=== PATIENT | male | born 1955 | race Caucasian/White ===

== ENCOUNTER → 2023-05-12 07:26 | Outpatient (REF) | payer MEDICARE, OTHER, SELFPAY | LOC: EMG 07:26 | PROVIDERS: ATTENDING PHYSICIAN Orthopaedic Surgery; FAMILY PHYSICIAN Family Medicine | DX: R20.0 Anesthesia of skin (principal); M50.30 Other cervical disc degeneration, unspecified cervical region | CPT/HCPCS: 95886; 95911 ==

== ENCOUNTER → 2023-06-16 11:41 | Outpatient (REF) | payer MEDICARE, OTHER, SELFPAY ==
[2023-06-16 12:32] LABS: INR 1.12; PT 14.2 Sec (11.4-14.6)
== END ==
LOC: REG 11:41
PROVIDERS: ATTENDING PHYSICIAN Internal Medicine Cardiovascular Disease; FAMILY PHYSICIAN Family Medicine
DX: I48.91 Unspecified atrial fibrillation (principal)
CPT/HCPCS: 36415; 85610

== ENCOUNTER → 2023-06-20 09:20 | Outpatient (REF) | payer MEDICARE, OTHER, SELFPAY ==
[2023-06-20 10:24] LABS: INR 1.43; PT 17.3 Sec (11.4-14.6)
== END ==
LOC: REG 09:20
PROVIDERS: ATTENDING PHYSICIAN Internal Medicine Cardiovascular Disease; FAMILY PHYSICIAN Family Medicine
DX: I48.91 Unspecified atrial fibrillation (principal)
CPT/HCPCS: 36415; 85610

== ENCOUNTER → 2023-06-26 09:46 | Outpatient (REF) | payer MEDICARE, OTHER, SELFPAY ==
[2023-06-26 11:21] LABS: INR 2.36; PT 26.1 Sec (11.4-14.6)
== END ==
LOC: REG 09:46
PROVIDERS: ATTENDING PHYSICIAN Internal Medicine Cardiovascular Disease
DX: I48.91 Unspecified atrial fibrillation (principal)
CPT/HCPCS: 36415; 85610

== ENCOUNTER → 2023-07-03 08:45 | Outpatient (REF) | payer MEDICARE, OTHER, SELFPAY ==
[2023-07-03 09:46] LABS: INR 2.01
== END ==
LOC: REG 08:45
PROVIDERS: ATTENDING PHYSICIAN Internal Medicine Cardiovascular Disease; FAMILY PHYSICIAN Family Medicine
DX: I48.0 Paroxysmal atrial fibrillation (principal)
CPT/HCPCS: 36415; 85610

== ENCOUNTER → 2023-07-10 08:18 | Outpatient (REF) | payer MEDICARE, OTHER, SELFPAY ==
[2023-07-10 10:16] LABS: INR 2.75; PT 29.5 Sec (11.4-14.6)
== END ==
LOC: REG 08:18
PROVIDERS: ATTENDING PHYSICIAN Internal Medicine Cardiovascular Disease; FAMILY PHYSICIAN Family Medicine
DX: I48.0 Paroxysmal atrial fibrillation (principal)
CPT/HCPCS: 36415; 85610

== ENCOUNTER → 2023-07-17 10:12 | Outpatient (REF) | payer MEDICARE, OTHER, SELFPAY ==
[2023-07-17 10:45] LABS: INR 2.94; PT 31.1 Sec (11.4-14.6)
== END ==
LOC: REG 10:12
PROVIDERS: ATTENDING PHYSICIAN Internal Medicine Cardiovascular Disease; FAMILY PHYSICIAN Family Medicine
DX: I48.91 Unspecified atrial fibrillation (principal)
CPT/HCPCS: 36415; 85610

== ENCOUNTER 2023-07-23 00:17 | Emergency (ER) | payer MEDICARE, OTHER, SELFPAY ==
[2023-07-23 00:20] VITALS: BP 207/104
--- NOTE | 2023-07-23 00:37 | ED.SKININJ ---
HPI-Injury
<ANTHONY Staley - Last Filed: 07/23/23 01:49>
General
Chief Complaint: Skin Problem
Source: patient
Exam Limitations: none
Time Seen by Provider: 07/23/23 00:28
Nursing documentation reviewed up to this point in time: agreed with
Travel History
Have you had any contact with someone who has COVID-19?: No
Do you have any symptoms of coronavirus? Fever > 100 degrees, chills, cough, shortness of breath, sore throat, loss of taste or smell, muscle aches, or headache?: No
History of Present Illness-Injury
Initial Injury comments:
This is a 67 year old male with recent MOHS surgery (07/10/23) who presents to the ED for excessive bleeding from surgical site (R upper cheek). He is on Coumadin with a recent INR (07/17/23) of 2.94. He was seen at by his healthcare marketer twice for
this same incident where they packed it. He denies fatigue, weakness, headache, cp, or sob.
Past History
<ANTHONY Staley - Last Filed: 07/23/23 01:49>
Past History
ED Past Medical History: Arrthythmia, HTN and Other (adrenal tumor, Paige's disease, NATHEN, morbid obestity)
ED Past Surgical History: Other (adrenal tumor resection)
Social History
Tobacco: Non-smoker
Alcohol: None
Drug: None
Personal:
Living: with family
Employment: Employed
Family History
Family History: Other (Noncontributory)
Review of Systems
<ANTHONY Staley - Last Filed: 07/23/23 01:49>
Review of Systems
Allergies reviewed?: Yes
All Other Systems: Not applicable
Constitutional: Reports no symptoms
EENT: Reports no symptoms
Respiratory: Reports no symptoms
Cardiac: Reports no symptoms
ABD/GI: Reports no symptoms
: Reports no symptoms
Musculoskeletal: Reports no symptoms
Skin: Reports no symptoms
Neurological: Reports no symptoms
Endocrine: Reports no symptoms
Hematologic/Lymphatic: Reports bleeding (From MOHS surgical site)
Psychiatric: Reports no symptoms
Phy Exam
<ANTHONY Staley - Last Filed: 07/23/23 01:49>
General Physical Exam
General Presentation: well appearing and no apparent distress
General Skin: warm and dry
General Habitus: normal
General Mental: alert
General Hydration: appears well hydrated
ENT Exam
ENT Exam: EOMI, pharynx normal, neck supple and normocephalic
Eye Exam
Eye Exam: PERRL, cornea clear and conjunctiva normal
Cardiovascular Exam
Cardiovascular Exam: regular rate/rhythm, no edema, no murmur and normal peripheral pulses
Pulmonary Exam
Pulmonary Exam: lungs clear, no respiratory distress, no rales, no crackles, no rhonchi, no stridor, no wheezing and no cough
Gastrointestinal Exam
Gastrointestinal Exam: normal bowel sounds, non tender, soft, no organomegaly, no pulsatile mass and non distended
Neurological Exam
Neurological Exam: alert, oriented x3, no motor deficits and speech normal
Musculoskeletal Exam
Musculoskeletal Exam: full ROM and no edema
Skin Exam
Skin Exam: normal color, warm/dry, no rash, no petechia and other (Bleeding from MOHS surgical site on R upper cheek )
Psychiatric Exam
Psychiatric Exam: normal mood/affect
Course
<ANTHONY Staley - Last Filed: 07/23/23 01:49>
Orders/Labs/Results
Orders:
Orders
07/23/23 01:14
PT/INR [Prothrombin Time] Urgent
Abnormal Lab Results
07/23/23
01:14
PT 28.6 H Sec
(11.4-14.6)
Vital Signs
Initial and Last Documented VS:
Initial Vital Signs
Temp Pulse Resp BP Pulse Ox
97.9 F 74 22 207/104 96
07/23/23 00:20 07/23/23 00:20 07/23/23 00:20 07/23/23 00:20 07/23/23 00:20
Last Documented Vital Signs
Temp Pulse Resp BP Pulse Ox
97.9 F 68 17 152/79 97
07/23/23 00:20 07/23/23 00:58 07/23/23 00:58 07/23/23 00:58 07/23/23 00:58
<Roberto Vega DO - Last Filed: 07/23/23 02:15>
Orders/Labs/Results
Orders:
Orders
07/23/23 01:14
PT/INR [Prothrombin Time] Urgent
Abnormal Lab Results
07/23/23
01:14
PT 28.6 H Sec
(11.4-14.6)
Vital Signs
Initial and Last Documented VS:
Initial Vital Signs
Temp Pulse Resp BP Pulse Ox
97.9 F 74 22 207/104 96
07/23/23 00:20 07/23/23 00:20 07/23/23 00:20 07/23/23 00:20 07/23/23 00:20
Last Documented Vital Signs
Temp Pulse Resp BP Pulse Ox
97.9 F 68 17 152/79 97
07/23/23 00:20 07/23/23 00:58 07/23/23 00:58 07/23/23 00:58 07/23/23 00:58
<ANTHONY Staley - Last Filed: 07/23/23 01:49>
MDM/Problems Addressed
Differential Diagnosis Includes:
MOHS complication vs wound infection
Wound infection considered, however surgical site without erythema or discharge. He denies any fevers. MOHS complication due to recent surgery and active bleeding from wound site.
<ANTHONY Staley - Last Filed: 07/23/23 01:49>
*Critical Care Note
Total Time (30-74mins, 75-104mins- exclusive of procedures): Not Applicable
ED Attending Note
<ANTHONY Staley - Last Filed: 07/23/23 01:49>
-
Portions of this chart may have been created with voice recognition software.� Occasional wrong word or��sound alike� substitutions may have occurred due to the inherent limitations of voice recognition software.
<Roberto Vega DO - Last Filed: 07/23/23 02:15>
ED Attending Note
Patient seen and examined by attending physician: Yes
I performed the substantive portion of visit, reviewed & personally made and approve the management plan that is documented in note by myself or DAE.: Yes
ED Attending Note:
Pleasant 67-year-old male that presents with bleeding on his right cheek. He had Mohs surgery by Dr. Milian. Patient is on Coumadin and has had bleeding from this wound. He was back to Dr. Milian's office twice for packing. Tonight the
bleeding restarted. Patient was seen in conjunction with the PA student. I have reviewed and agree with the history and treatment plan presented. On my independent physical exam, patient is awake, alert, and oriented x3. There is approximately
3 x 1 cm surgical OpSite on the right cheek. It is packed. There is clot all around the packing. There is no active bleeding. No respiratory distress.
Upon my exam, bleeding had stopped. We put Surgifoam over the site and put a bandage on top of that. Patient tolerated procedure well with no immediate adverse effects.
Discharge Plan
Departure
Patient Disposition: Home (Routine Discharge)
Date of Disposition: 07/23/23
Time of Disposition: 02:13
Patient with high blood pressure during this ER visit?: Yes
Condition: Good
Discharge Problem:
Post-op bleeding
Instructions: Wound Care (DC), Bleeding After Surgery
Prescriptions:
No Action
losartan 100 mg Tablet
100 mg PO DAILY Qty: 0 0RF
Eliquis DVT-PE Treat 30D Start 5 mg (74 tabs) tablets,dose pack
See Rx Instructions .ROUTE .COMPLEX Qty: 74 0RF
Rx Instructions:
orally per package directions
diltiazem HCl [Cardizem LA] 180 mg tablet extended release 24 hr
180 mg PO DAILY Qty: 30 0RF
tamsulosin [Flomax] 0.4 mg capsule
0.4 mg PO DAILY Qty: 30 0RF
Referrals:
Román Milian MD [Consulting Staff] - Next open appointment
Activity Restrictions/Additional Instructions:
Please follow-up with Dr. Milian, as discussed
It was a pleasure meeting you and taking part in your care. We hope for your continued healing and wellness.
Please read discharge instructions in their entirety. However, they are for general education and may not describe your exact diagnosis at discharge. Information on your ER visit and medical conditions were discussed with you along with appropriate
follow up information...
If indicated, please take your medications as instructed and indicated on discharge paperwork.
Please schedule a follow up appointment as directed. Call to schedule an appointment
Please return to the emergency department with ANY change in, persisting, or worsening of symptoms. If any of your symptoms do not improve, or persist, or become more severe within 6-12 hours, please return to the emergency department for further
care.
Please return to the emergency department if you develop a headache, neck pain/stiffness, fever greater than 100.4F, chest pain, shortness of breath, persistent nausea, vomiting, slurred speech, difficulty walking, numbness/tingling, weakness, signs
of infection or any other symptoms that are worrisome to you.
If you have any questions or concerns please do not hesitate to call the Hospital at or E-mail me directly at [email or web address]
Interventions
Interventions:
*Risk Screen - Suicide Last Done: 07/23/23 00:20
*General Assessment Last Done: 07/23/23 00:54
*Neglect/Abuse Screening Last Done: 07/23/23 00:20
ED- Fall Risk Assessment Last Done: 07/23/23 00:54
*ED COVID-19 Vaccine History Last Done: 07/23/23 00:54
ED-Skin Assessment Last Done: 07/23/23 00:54
Discharge Date and Time
Print Language: BELGIAN
[2023-07-23 00:58] VITALS: BP 152/79
[2023-07-23 00:59] VITALS: BMI 46.2
[2023-07-23 01:36] LABS: PT 28.6 Sec (11.4-14.6)
[2023-07-23 02:25] VITALS: BP 143/79
== END 2023-07-23 02:25 | disposition home or self-care (01) ==
LOC: EMR 00:17
PROVIDERS: EMERGENCY PHYSICIAN Student in an Organized Health Care Education/Training Program; FAMILY PHYSICIAN Family Medicine
DX: L76.22 Postprocedural hemorrhage of skin and subcutaneous tissue following other procedure (principal); I10 Essential (primary) hypertension; Z79.01 Long term (current) use of anticoagulants
CPT/HCPCS: 99283; 85610

== ENCOUNTER → 2023-08-14 08:41 | Outpatient (REF) | payer MEDICARE, OTHER, SELFPAY ==
[2023-08-14 09:34] LABS: INR 2.49; PT 27.3 Sec (11.4-14.6)
== END ==
LOC: REG 08:41
PROVIDERS: ATTENDING PHYSICIAN Internal Medicine Cardiovascular Disease
DX: I48.91 Unspecified atrial fibrillation (principal)
CPT/HCPCS: 36415; 85610

== ENCOUNTER → 2023-08-28 11:44 | Outpatient (REF) | payer MEDICARE, OTHER, SELFPAY ==
[2023-08-28 17:58] LABS: Urine Albumin Trace (Neg - Trace); Urine Bilirubin Negative (Negative); Urine Character Clear (Clear); Urine Color Yellow; Urine Glucose Negative (Negative); Urine Ketone 1+ (Negative); Urine Leukocyte 2+ (Negative); Urine Nitrite Negative (Negative); Urine Occult Blood Negative (Negative); Urine Specific Gravity 1.025 (<1.030); Urine Urobilinogen Negative (Neg - 1+)
[2023-08-28 18:25] LABS: Urine Red Blood Cell 0-2 /HPF (0-2)
== END ==
LOC: CLAB 11:44
PROVIDERS: ATTENDING PHYSICIAN Specialist
DX: N39.0 Urinary tract infection, site not specified (principal)
CPT/HCPCS: 81003; 81015; 87086

== ENCOUNTER → 2023-09-05 07:42 | Outpatient (REF) | payer MEDICARE, OTHER, SELFPAY ==
[2023-09-05 08:21] LABS: PT 28.6 Sec (11.4-14.6)
== END ==
LOC: REG 07:42
PROVIDERS: ATTENDING PHYSICIAN Internal Medicine Cardiovascular Disease; FAMILY PHYSICIAN Family Medicine
DX: I48.91 Unspecified atrial fibrillation (principal)
CPT/HCPCS: 36415; 85610

== ENCOUNTER → 2023-10-03 07:25 | Outpatient (REF) | payer MEDICARE, OTHER, SELFPAY ==
[2023-10-03 08:56] LABS: INR 2.79; PT 29.4 Sec (11.4-14.6)
== END ==
LOC: REG 07:25
PROVIDERS: ATTENDING PHYSICIAN Internal Medicine
DX: I48.91 Unspecified atrial fibrillation (principal)
CPT/HCPCS: 36415; 85610

== ENCOUNTER → 2023-10-31 07:22 | Outpatient (REF) | payer MEDICARE, OTHER, SELFPAY ==
[2023-10-31 08:07] LABS: INR 2.47; PT 26.7 Sec (11.4-14.6)
== END ==
LOC: REG 07:22
PROVIDERS: ATTENDING PHYSICIAN Internal Medicine Cardiovascular Disease; FAMILY PHYSICIAN Family Medicine
DX: I48.91 Unspecified atrial fibrillation (principal)
CPT/HCPCS: 36415; 85610

== ENCOUNTER → 2023-11-28 06:42 | Outpatient (REF) | payer MEDICARE, OTHER, SELFPAY ==
[2023-11-28 07:42] LABS: INR 2.47; PT 26.6 Sec (11.4-14.6)
== END ==
LOC: REG 06:42
PROVIDERS: ATTENDING PHYSICIAN Internal Medicine Cardiovascular Disease; FAMILY PHYSICIAN Family Medicine
DX: I48.91 Unspecified atrial fibrillation (principal)
CPT/HCPCS: 36415; 85610

== ENCOUNTER → 2023-12-26 06:58 | Outpatient (REF) | payer MEDICARE, OTHER, SELFPAY ==
[2023-12-26 08:11] LABS: INR 2.51; PT 26.9 Sec (11.4-14.6)
== END ==
LOC: REG 06:58
PROVIDERS: ATTENDING PHYSICIAN Internal Medicine Cardiovascular Disease; FAMILY PHYSICIAN Family Medicine
DX: I48.91 Unspecified atrial fibrillation (principal)
CPT/HCPCS: 36415; 85610

== ENCOUNTER → 2024-01-23 06:31 | Outpatient (REF) | payer MEDICARE, OTHER, SELFPAY ==
[2024-01-23 07:48] LABS: INR 2.56; PT 27.4 Sec (11.4-14.6)
== END ==
LOC: REG 06:31
PROVIDERS: ATTENDING PHYSICIAN Student in an Organized Health Care Education/Training Program; FAMILY PHYSICIAN Family Medicine
DX: I48.91 Unspecified atrial fibrillation (principal)
CPT/HCPCS: 36415; 85610

== ENCOUNTER → 2024-02-20 06:45 | Outpatient (REF) | payer MEDICARE, OTHER, SELFPAY ==
[2024-02-20 08:00] LABS: INR 1.68
== END ==
LOC: REG 06:45
PROVIDERS: ATTENDING PHYSICIAN Student in an Organized Health Care Education/Training Program; FAMILY PHYSICIAN Family Medicine
DX: I48.91 Unspecified atrial fibrillation (principal)
CPT/HCPCS: 36415; 85610

== ENCOUNTER → 2024-02-27 07:13 | Outpatient (REF) | payer MEDICARE, OTHER, SELFPAY ==
[2024-02-27 09:19] LABS: INR 1.69
== END ==
LOC: REG 07:13
PROVIDERS: ATTENDING PHYSICIAN Student in an Organized Health Care Education/Training Program; REFERRING PHYSICIAN Family Medicine
DX: I48.91 Unspecified atrial fibrillation (principal)
CPT/HCPCS: 36415; 85610

== ENCOUNTER → 2024-03-05 06:52 | Outpatient (REF) | payer MEDICARE, OTHER, SELFPAY ==
[2024-03-05 08:45] LABS: INR 2.11; PT 23.8 Sec (11.4-14.6)
== END ==
LOC: REG 06:52
PROVIDERS: ATTENDING PHYSICIAN Student in an Organized Health Care Education/Training Program; FAMILY PHYSICIAN Family Medicine
DX: I48.91 Unspecified atrial fibrillation (principal)
CPT/HCPCS: 36415; 85610

== ENCOUNTER → 2024-03-12 06:40 | Outpatient (REF) | payer MEDICARE, OTHER, SELFPAY ==
[2024-03-12 08:12] LABS: PT 23.6 Sec (11.4-14.6)
== END ==
LOC: REG 06:40
PROVIDERS: ATTENDING PHYSICIAN Student in an Organized Health Care Education/Training Program; FAMILY PHYSICIAN Family Medicine
DX: I48.91 Unspecified atrial fibrillation (principal)
CPT/HCPCS: 36415; 85610

== ENCOUNTER → 2024-03-19 06:51 | Outpatient (REF) | payer MEDICARE, OTHER, SELFPAY ==
[2024-03-19 07:38] LABS: INR 2.76; PT 29.5 Sec (11.4-14.6)
== END ==
LOC: REG 06:51
PROVIDERS: ATTENDING PHYSICIAN Student in an Organized Health Care Education/Training Program; FAMILY PHYSICIAN Family Medicine
DX: I48.91 Unspecified atrial fibrillation (principal)
CPT/HCPCS: 36415; 85610

== ENCOUNTER → 2024-03-26 08:41 | Outpatient (REF) | payer MEDICARE, OTHER, SELFPAY ==
[2024-03-26 09:26] LABS: INR 2.71; PT 29.2 Sec (11.4-14.6)
== END ==
LOC: REG 08:41
PROVIDERS: ATTENDING PHYSICIAN Student in an Organized Health Care Education/Training Program; FAMILY PHYSICIAN Family Medicine
DX: I48.91 Unspecified atrial fibrillation (principal)
CPT/HCPCS: 36415; 85610

== ENCOUNTER → 2024-04-12 06:51 | Outpatient (REF) | payer MEDICARE, OTHER, SELFPAY ==
[2024-04-12 07:35] LABS: INR 2.66; PT 28.4 Sec (11.4-14.6)
== END ==
LOC: REG 06:51
PROVIDERS: ATTENDING PHYSICIAN Student in an Organized Health Care Education/Training Program; FAMILY PHYSICIAN Family Medicine
DX: I48.0 Paroxysmal atrial fibrillation (principal)
CPT/HCPCS: 36415; 85610

== ENCOUNTER → 2024-04-19 09:34 | Outpatient (REF) | payer MEDICARE, OTHER, SELFPAY ==
[2024-04-19 10:11] LABS: INR 3.73; PT 36.6 Sec (11.4-14.6)
== END ==
LOC: REG 09:34
PROVIDERS: ATTENDING PHYSICIAN Student in an Organized Health Care Education/Training Program
DX: I48.0 Paroxysmal atrial fibrillation (principal)
CPT/HCPCS: 36415; 85610

== ENCOUNTER → 2024-04-29 07:00 | Outpatient (REF) | payer MEDICARE, OTHER, SELFPAY ==
[2024-04-29 07:55] LABS: INR 3.67; PT 36.7 Sec (11.4-14.6)
== END ==
LOC: REG 07:00
PROVIDERS: ATTENDING PHYSICIAN Student in an Organized Health Care Education/Training Program; FAMILY PHYSICIAN Family Medicine
DX: I48.0 Paroxysmal atrial fibrillation (principal)
CPT/HCPCS: 36415; 85610

== ENCOUNTER → 2024-05-07 06:47 | Outpatient (REF) | payer MEDICARE, OTHER, SELFPAY ==
[2024-05-07 07:51] LABS: INR 2.82; PT 29.6 Sec (11.4-14.6)
== END ==
LOC: REG 06:47
PROVIDERS: ATTENDING PHYSICIAN Student in an Organized Health Care Education/Training Program; FAMILY PHYSICIAN Family Medicine
DX: I48.0 Paroxysmal atrial fibrillation (principal)
CPT/HCPCS: 36415; 85610

== ENCOUNTER → 2024-05-14 07:19 | Outpatient (REF) | payer MEDICARE, OTHER, SELFPAY ==
[2024-05-14 08:22] LABS: INR 2.49
== END ==
LOC: REG 07:19
PROVIDERS: ATTENDING PHYSICIAN Student in an Organized Health Care Education/Training Program; FAMILY PHYSICIAN Family Medicine
DX: I48.0 Paroxysmal atrial fibrillation (principal)
CPT/HCPCS: 36415; 85610

== ENCOUNTER 2024-05-18 09:13 | Inpatient (IN) | payer MEDICARE, OTHER, SELFPAY ==
[2024-05-17 15:32] VITALS: BP 130/80
[2024-05-17 16:11] LABS: % Basophils 0.8 % (0-2); % Eosinophils 1.8 % (0-6); % Lymphocytes 17.6 % (20.5-51.1); % Monocytes 8.7 % (1.7-9.3); % Neutrophils 70.1 % (42.2-75.2); Absolute Basophils 0.1 10^3/uL (0-0.2); Absolute Eosinophils 0.2 10^3/uL (0-0.7); Absolute Immature Granulocytes 0.1 10^3/uL (0-0.05); Absolute Lymphocytes 1.5 10^3/uL (1.2-3.4); Absolute Monocytes 0.8 10^3/uL (0.1-0.6); Absolute Neutrophils 6.1 10^3/uL (1.4-6.5); Hematocrit 42.7 % (39.0-52.0); Hemoglobin 13.9 g/dL (13.0-18.0); Mean Corp Hgb Conc. 32.6 g/dL (33.0-37.0); Mean Corpuscular Hgb 29.9 pg (27.0-31.0); Mean Corpuscular Volume 91.8 fL (80.0-94.0); Mean Platelet Volume 9.5 fL (7.4-10.4); Nucleated Red Blood Cells % 0 % (-); Platelet Count 158 10^3/uL (130-400); Red Blood Cell Count 4.65 10^6/uL (4.70-6.10); Red Cell Dist. Width 15.2 % (11.5-14.5); White Blood Cell Count 8.7 10^3/uL (4.8-10.8)
[2024-05-17 16:29] LABS: ALT (SGPT) 20 U/L (0-50); AST (SGOT) 20 U/L (17-59); Albumin 4.9 g/dl (3.5-5.0); Alkaline Phosphatase 58 U/L (38-126); Blood Urea Nitrogen 15 mg/dl (9-20); Calcium 9.8 mg/dl (8.4-10.2); Carbon Dioxide 27 mmol/L (22-30); Chloride 98 mmol/L (98-107); Glucose 98 mg/dl (70-99); Potassium 4.5 mmol/L (3.5-5.1); Sodium 138 mmol/L (135-145); Total Bilirubin 1.3 mg/dl (0.2-1.3); Total Protein 7.6 g/dl (6.3-8.2); eGFR > 60.00
--- NOTE | 2024-05-17 17:28 | ED.GENMED ---
History of Present Illness
<Sallie Bradley NP - Last Filed: 05/20/24 22:37>
General
Chief Complaint: Skin Problem
Source: patient
Exam Limitations: none
Time Seen by Provider: 05/17/24 16:50
Nursing documentation reviewed up to this point in time: agreed with
History of Present Illness
History of Present Illness:
Patient to ED with complaint of pain redness and swelling to right elbow. States he had PT/INR drawn on Friday AM. Friday PM his symptoms began. He reports intermittent fevers as high as 102 since friday. He feels that the pain may be improving
but swelling is worsening and he has limited ROM to joint due to pain and swelling. Brought to ED by spouse for eval.
Past History
<Sallie Bradley NP - Last Filed: 05/20/24 22:37>
Past History
ED Past Medical History: Arrthythmia (RA), HTN and Other (adrenal tumor, Harpswell's disease, NATHEN, morbid obestity)
ED Past Surgical History: Other (adrenal tumor resection)
Social History
Tobacco: Non-smoker
Alcohol: None
Drug: None
Personal:
Living: with family
Employment: Employed
Family History
Family History: Other (Noncontributory)
Review of Systems
<Sallie Bradley NP - Last Filed: 05/20/24 22:37>
Review of Systems
Allergies reviewed?: Yes
All Other Systems: ROS reviewed and negative except as documented in HPI and ROS
Constitutional: Reports no symptoms
EENT: Reports no symptoms
Respiratory: Reports no symptoms
Cardiac: Reports no symptoms
ABD/GI: Reports no symptoms
Musculoskeletal: Reports joint pain (Pain redness and swelling to right elbow)
Skin: Reports other (erythema and swelling to right elbow)
Neurological: Reports no symptoms
Psychiatric: Reports no symptoms
Phy Exam
<Sallie Bradley NP - Last Filed: 05/20/24 22:37>
General Physical Exam
General Presentation: moderate distress
General age: appears stated age
General Skin: warm and dry
General Habitus: normal
General Mental: alert
Musculoskeletal Exam
Musculoskeletal Exam: neuro vasc intact
Skin Exam
Skin Exam: other (Pain redness and swelling to rght elbow. Limited ROM due to pain)
Psychiatric Exam
Psychiatric Exam: normal mood/affect
Course
<Sallie Bradley SHAMPOO TECHNICIAN - Last Filed: 05/20/24 22:37>
Orders/Labs/Results
Orders:
Orders
05/17/24 15:38
Arms, right US [US Periph Venous UPPER Ext RT] Urgent
Comment:
Reason For Exam: pain, swelling post phlebotomy
05/17/24 15:45
C-Reactive Protein Urgent
Comment: ADDON
Complete Blood Count/With Diff Urgent
Comprehensive Metabolic Panel Urgent
Erythrocyte Sed Rate Urgent
Comment: ADDON
05/17/24 18:36
Add On- LAB Urgent
Tests Added?: esr,crp
05/17/24 18:39
CT Upper Ext W/o Iv Cont Rt Urgent
Comment:
Reason For Exam: pain redness swellng fever
05/17/24 18:55
COVID-19 Antigen Urgent
Source: Nasal Swab
Influenza A+B Rapid Molecular Urgent
LORI Source: Nasal Swab
Specimen Description:
05/17/24 20:44
INF RAPID [Influenza A+B Rapid Molecular] Urgent
LORI Source: Nasal Swab
Specimen Description:
05/17/24 21:27
ORTHOPEDIC CONSULT Urgent
Consulting Provider: Anthony Rizzo
Was physician already notified: Yes
05/17/24 21:28
CeFAZolin 1 GRAM [Ancef] 1 gram in 5 ml IV NOW
05/17/24 22:00
Flush (0.9% Sodium Chloride) [Flush (Nss)] See Dose Instructions IV PER PROTOCOL
05/17/24 22:08
Admit/Transfer Patient As Directed
Co-Sign Provider:
Level of Care: Observation services
Assign to:: Medical/Surgical
Physician / Group: hospitalist
Diagnosis: cellulitis
05/17/24 22:09
PRN Pain Medication Management As Directed
May give lesser potent ordered pain med per pt: Yes
preference::
Protocol:: Medication orders for pain may be administered in a
manner that supports deferring to patient preference
when the pt is:
- Requesting an ordered lesser potent pain medication.
Least to most potent pain medications are defined
as: acetaminophen < NSAID < tramadol < opioids
(morphine, oxycodone, hydromorphone).
- Requesting a lesser dose of the same medication IF
ORDERED.
- Requesting a less intrusive route of administration
if both routes are prescribed by the provider (PO <
IV).
05/17/24 22:10
Code Status As Directed
Resuscitation Status: Full Code
05/17/24 22:14
Oxycodone [Roxicodone] 5 mg PO NOW STA
05/17/24 23:55
Warfarin [Coumadin] 10 mg PO NOW STA
05/18/24 00:03
Acetaminophen [Tylenol] 650 mg PO Q4HPRN PRN
Bisacodyl [Dulcolax] 10 mg RECTAL [id number] PRN
Docusate W/Senna [Senokot-S] 1 tablet PO BIDPRN PRN
HYDROmorphone [Dilaudid] 0.5 mg IV Q4HPRN PRN
Ketorolac [Toradol] 10 mg IV Q6HPRN PRN
Polyethylene Glycol Powder [Miralax] 17 grams PO DAILYPRN PRN
05/18/24 00:03
VTE Contraindication Routine
VTE Mechanical Device Contraindication: Medical Contraindication
Pharmocologic Contraindication: Medical Contraindication
Activity As Directed
Activity Level: With Assistance
Elevate Extremity As Directed
Extremity:: right arm
Elevate with:: pillow
Vital Signs As Directed
Frequency: Per unit guidelines
Cpap [RESP] Routine
Patient to use own unit?: Yes
Set Pressure (cm H2O): 8
05/18/24 00:37
Case Management Consult ONCE
Case Management Consult: Advanced Directive
05/18/24 01:08
Hydroxychloroquine [Plaquenil] 200 mg PO NOW STA
05/18/24 05:00
CeFAZolin 1 GRAM [Ancef] 1 gram in 5 ml IV Q8H
05/18/24 05:52
Basic Metabolic Panel IN AM
Complete Blood Count/No Diff IN AM
Prothrombin Time IN AM
05/18/24 Breakfast
Regular
At Your Request: Full Participation
CeFAZolin 2 GRAM [Ancef] 2 grams in 10 ml IV Q8H
05/18/24 08:00
Diltiazem Extended Release [Cardizem Cd] 180 mg PO DAILY
FOLic ACID [Folvite] 1 mg PO DAILY
Hydroxychloroquine [Plaquenil] 200 mg PO BID
Losartan [Cozaar] 100 mg PO DAILY
05/18/24 Dinner
Regular
At Your Request: Full Participation
05/18/24 22:00
Warfarin [Coumadin] 10 mg PO HS
Abnormal Lab Results
05/17/24 05/18/24
15:45 05:52
RBC 4.65 L 10^6/uL 4.24 L 10^6/uL
(4.70-6.10) (4.70-6.10)
Hgb 12.8 L g/dL
(13.0-18.0)
Hct 38.6 L %
(39.0-52.0)
MCHC 32.6 L g/dL
(33.0-37.0)
RDW 15.2 H % 15.1 H %
(11.5-14.5) (11.5-14.5)
Abs Immat Gran (auto) 0.1 H 10^3/uL
(0-0.05)
Absolute Monos (auto) 0.8 H 10^3/uL
(0.1-0.6)
Immature Gran % 1.0 H %
(0-0.5)
Lymphocytes % 17.6 L %
(20.5-51.1)
PT 25.1 H Sec
(11.4-14.6)
BUN 21 H mg/dl
(9-20)
Glucose 100 H mg/dl
(70-99)
C-Reactive Protein 130.70 H mg/L
(0.0-10.00)
05/18/24 05:52
05/18/24 05:52
Vital Signs
Initial and Last Documented VS:
Initial Vital Signs
Temp Pulse Resp BP Pulse Ox
98.4 F 75 18 130/80 99
05/17/24 15:32 05/17/24 15:32 05/17/24 15:32 05/17/24 15:32 05/17/24 15:32
Last Documented Vital Signs
Temp Pulse Resp BP Pulse Ox
98.2 F 73 17 91/64 96
05/19/24 12:00 05/19/24 12:00 05/19/24 12:00 05/19/24 12:00 05/19/24 12:00
<Román Pardo MD - Last Filed: 05/17/24 21:38>
Orders/Labs/Results
Orders:
Orders
05/17/24 15:38
Arms, right US [US Periph Venous UPPER Ext RT] Urgent
Comment:
Reason For Exam: pain, swelling post phlebotomy
05/17/24 15:45
C-Reactive Protein Urgent
Comment: ADDON
Complete Blood Count/With Diff Urgent
Comprehensive Metabolic Panel Urgent
Erythrocyte Sed Rate Urgent
Comment: ADDON
05/17/24 18:36
Add On- LAB Urgent
Tests Added?: esr,crp
05/17/24 18:39
CT Upper Ext W/o Iv Cont Rt Urgent
Comment:
Reason For Exam: pain redness swellng fever
05/17/24 18:55
COVID-19 Antigen Urgent
Source: Nasal Swab
Influenza A+B Rapid Molecular Urgent
LORI Source: Nasal Swab
Specimen Description:
05/17/24 20:44
INF RAPID [Influenza A+B Rapid Molecular] Urgent
LORI Source: Nasal Swab
Specimen Description:
05/17/24 21:27
ORTHOPEDIC CONSULT Urgent
Consulting Provider: Anthony Rizzo
Was physician already notified: Yes
05/17/24 21:28
CeFAZolin 1 GRAM [Ancef] 1 gram in 5 ml IV NOW
05/17/24 22:00
Flush (0.9% Sodium Chloride) [Flush (Nss)] See Dose Instructions IV PER PROTOCOL
05/17/24 22:08
Admit/Transfer Patient As Directed
Co-Sign Provider:
Level of Care: Observation services
Assign to:: Medical/Surgical
Physician / Group: hospitalist
Diagnosis: cellulitis
05/17/24 22:09
PRN Pain Medication Management As Directed
May give lesser potent ordered pain med per pt: Yes
preference::
Protocol:: Medication orders for pain may be administered in a
manner that supports deferring to patient preference
when the pt is:
- Requesting an ordered lesser potent pain medication.
Least to most potent pain medications are defined
as: acetaminophen < NSAID < tramadol < opioids
(morphine, oxycodone, hydromorphone).
- Requesting a lesser dose of the same medication IF
ORDERED.
- Requesting a less intrusive route of administration
if both routes are prescribed by the provider (PO <
IV).
05/17/24 22:10
Code Status As Directed
Resuscitation Status: Full Code
05/17/24 22:14
Oxycodone [Roxicodone] 5 mg PO NOW STA
05/17/24 23:55
Warfarin [Coumadin] 10 mg PO NOW STA
05/18/24 00:03
Acetaminophen [Tylenol] 650 mg PO Q4HPRN PRN
Bisacodyl [Dulcolax] 10 mg RECTAL [id number] PRN
Docusate W/Senna [Senokot-S] 1 tablet PO BIDPRN PRN
HYDROmorphone [Dilaudid] 0.5 mg IV Q4HPRN PRN
Ketorolac [Toradol] 10 mg IV Q6HPRN PRN
Polyethylene Glycol Powder [Miralax] 17 grams PO DAILYPRN PRN
05/18/24 00:03
VTE Contraindication Routine
VTE Mechanical Device Contraindication: Medical Contraindication
Pharmocologic Contraindication: Medical Contraindication
Activity As Directed
Activity Level: With Assistance
Elevate Extremity As Directed
Extremity:: right arm
Elevate with:: pillow
Vital Signs As Directed
Frequency: Per unit guidelines
Cpap [RESP] Routine
Patient to use own unit?: Yes
Set Pressure (cm H2O): 8
05/18/24 00:37
Case Management Consult ONCE
Case Management Consult: Advanced Directive
05/18/24 01:08
Hydroxychloroquine [Plaquenil] 200 mg PO NOW STA
05/18/24 05:00
CeFAZolin 1 GRAM [Ancef] 1 gram in 5 ml IV Q8H
05/18/24 05:52
Basic Metabolic Panel IN AM
Complete Blood Count/No Diff IN AM
Prothrombin Time IN AM
05/18/24 Breakfast
Regular
At Your Request: Full Participation
CeFAZolin 2 GRAM [Ancef] 2 grams in 10 ml IV Q8H
05/18/24 08:00
Diltiazem Extended Release [Cardizem Cd] 180 mg PO DAILY
FOLic ACID [Folvite] 1 mg PO DAILY
Hydroxychloroquine [Plaquenil] 200 mg PO BID
Losartan [Cozaar] 100 mg PO DAILY
05/18/24 Dinner
Regular
At Your Request: Full Participation
05/18/24 22:00
Warfarin [Coumadin] 10 mg PO HS
Abnormal Lab Results
05/17/24 05/18/24
15:45 05:52
RBC 4.65 L 10^6/uL 4.24 L 10^6/uL
(4.70-6.10) (4.70-6.10)
Hgb 12.8 L g/dL
(13.0-18.0)
Hct 38.6 L %
(39.0-52.0)
MCHC 32.6 L g/dL
(33.0-37.0)
RDW 15.2 H % 15.1 H %
(11.5-14.5) (11.5-14.5)
Abs Immat Gran (auto) 0.1 H 10^3/uL
(0-0.05)
Absolute Monos (auto) 0.8 H 10^3/uL
(0.1-0.6)
Immature Gran % 1.0 H %
(0-0.5)
Lymphocytes % 17.6 L %
(20.5-51.1)
PT 25.1 H Sec
(11.4-14.6)
BUN 21 H mg/dl
(9-20)
Glucose 100 H mg/dl
(70-99)
C-Reactive Protein 130.70 H mg/L
(0.0-10.00)
05/18/24 05:52
05/18/24 05:52
Vital Signs
Initial and Last Documented VS:
Initial Vital Signs
Temp Pulse Resp BP Pulse Ox
98.4 F 75 18 130/80 99
05/17/24 15:32 05/17/24 15:32 05/17/24 15:32 05/17/24 15:32 05/17/24 15:32
Last Documented Vital Signs
Temp Pulse Resp BP Pulse Ox
98.2 F 73 17 91/64 96
05/19/24 12:00 05/19/24 12:00 05/19/24 12:00 05/19/24 12:00 05/19/24 12:00
<Sallie Bradley NP - Last Filed: 05/20/24 22:37>
*Radiology
Radiology exam reviewed: radiology read reviewed
*Pulse Oximetry
Patient hypoxic: no
*Critical Care Note
Total Time (30-74mins, 75-104mins- exclusive of procedures): Not Applicable
<Sallie Bradley NP - Last Filed: 05/20/24 22:37>
Update Note
Update Note:
Patient to ED with increasing pain, redness, swelling to right elbow after venipuncture to proximal forearm pm Friday. REports fever intermittently. Today reports temp of 104. PMH RA, on immunotherapy. Neurovascularly intact. Good rotation of
foream. Unable to straighten at elbow due to pain and swelling. Labs reviewed. WBC 8.7. Sed rate normal. CT without evidence of oteomyelitis. SMall effusion noted. Case discussed with Dr. Pardo who also evaluated this patient. Dr. Rizoz
was consulted and recommends admission, IV antibiotics. Recommends holding off on joint aspiration as effusion is small. Most likely cellulitis at this time.WIll consult in AM. Patient remains afebile. He is agreeable to admission
ED Attending Note
<Sallie Bradley NP - Last Filed: 05/20/24 22:37>
-
Portions of this chart may have been created with voice recognition software.� Occasional wrong word or��sound alike� substitutions may have occurred due to the inherent limitations of voice recognition software.
<Román Pardo MD - Last Filed: 05/17/24 21:38>
ED Attending Note
Patient seen and examined by attending physician: Yes
I performed the substantive portion of visit, reviewed & personally made and approve the management plan that is documented in note by myself or DAE.: Yes
ED Attending Note:
68-year-old male complaining of pain and swelling to the right arm. Also with fever and chills. Temperature to 104 this morning. Patient had an IV stick to the right arm 4 days ago. Symptoms started that evening.
On exam patient is nontoxic in no distress. There is some diffuse swelling to the right elbow. There is an area of ecchymosis to the antecubital area. There is mild warmth and erythema to the lateral area of the elbow. Tenderness over the
olecranon and some tenderness over the lateral epicondyle. Able to supinate and pronate without difficulty. However some pain with attempted full extension of the elbow.
Patient immunocompromise. Fever earlier today. Not clear clinically whether this is a septic arthritis or a bursitis/lateral epicondylitis. Labs are stable. Will check CT scan and reevaluate
2129... Discussed with orthopedics. White count okay ESR okay. Relatively low suspicion for septic arthritis. With erythema warmth recent fevers will cover for cellulitis admit to medicine with orthopedic consult in the morning.
Discharge Plan
Departure
Patient Disposition: Admit
Date of Disposition: 05/17/24
Time of Disposition: 21:24
Presentation/result/management discussed w/ accepting MD/DO: Hospitalist
Patient with high blood pressure during this ER visit?: No
Condition: Good
Covid-19: Not Applicable
Discharge Problem:
Cellulitis of right elbow
Interventions
Interventions:
*Risk Screen - Suicide Last Done: 05/18/24 00:15
*General Assessment Last Done: 05/17/24 16:51
*Neglect/Abuse Screening Last Done: 05/17/24 16:51
ED- Fall Risk Assessment Last Done: 05/18/24 00:10
*ED COVID-19 Vaccine History Last Done: 05/18/24 00:15
*Nursing Disposition Last Done: 05/18/24 00:10
ED-Skin Assessment Last Done: 05/17/24 19:03
Discharge Date and Time
Discharge Date/Time: 05/18/24 00:10
Musculoskeletal Injury Exam
<Sallie Bradley NP - Last Filed: 05/20/24 22:37>
Musculoskeletal Injury Exam
Right Elbow:
Pain with Movement?: Moderate
Tender to palpation?: Moderate
Soft tissue swelling?: Moderate
External deformity and angulation?: None
Contusion?: None
Hematoma-local bleeding into tissue?: None
Crepitus with movement?: No
Joint instability?: No
Malalignment/deformity?: No
Range of motion: Limited
Distal skin color and temperature: normal-warm & good color
Capillary Refill: normal
Normal distal neurovascular exam?: Yes
[2024-05-17 19:43] LABS: COVID-19 Antigen Negative (Negative)
[2024-05-17 20:21] LABS: Erythrocyte Sed Rate 15 mm/hour (0-20)
--- NOTE | 2024-05-17 21:56 | HPS.HSE ---
Family Physician
-
Family Physician: Dionte Marcos
Chief Complaint
-
Right elbow swelling redness and pain
History of Present Illness
This is a 68-year-old with past medical history significant for paroxysmal atrial fibrillation on Cardizem and anticoagulation with Coumadin, hypertension, rheumatoid arthritis, history of Paige's status post adrenalectomy, NATHEN on CPAP presenting
to the emergency department with approximately 3 days of right elbow swelling and tenderness.
Patient denies any injuries. Denies any known bites. He reported that he had a blood draw for INR on Friday and thereafter started having elbow redness and pain. Was doing well up until 8 days ago when he had a fever it was high as 104 at home.
He reported that he took Tylenol ID for with. However today he had a fever again of 102. He took Tylenol in the morning and has not had a fever since. Patient denies any recent exacerbation of his rheumatoid arthritis. He reports history of gout
many years ago but no recent such episodes.
He denied any changes to the knees or exercise or behavioral problem.
In the emergency department the patient was afebrile, blood pressure was 130/80 with a pulse of 75. CBC was unremarkable. Electrolytes BUN/creatinine were also completely unremarkable. ESR was negative. He had an ultrasound which was negative
for a DVT. CT of the right upper extremity shows small to moderate knee joint effusion, no bony deformation. No evidence of osteomyelitis. CRP pending
Medical History
Past Medical History
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
Additional Past Medical History:
Her rheumatoid arthritis
Past Surgical History: Reports Cholecystectomy, Orthopedic and Other (Appendectomy, right thumb bone resection and grafting for cancer)
Social History
Tobacco: Non-smoker
Alcohol: None
Drug: None
Personal:
Living: With Family
Employment: Retired
Family History
Family History: Not pertinent
Allergies / Home Medications
Allergies reflects when Allergies were last updated in [employer].
Home Medications with original date entered in [employer]
Allergy/Medication List:
Allergies
Allergy/AdvReac Type Severity Reaction Status Date / Time
theophylline Allergy Anaphylaxis Verified 11/15/22 17:55
Home Medications
losartan 100 mg tablet 100 mg PO DAILY Blood pressure #0 tabs 09/15/22
diltiazem HCl 180 mg tablet,extended release 24 hr (Cardizem LA) 180 mg PO DAILY #30 tabs 11/15/22
acetaminophen 500 mg tablet (Tylenol Extra Strength) 1,000 mg PO Q6HPRN PRN mild pain 05/17/24
folic acid 1 mg tablet 1 mg PO DAILY 05/17/24
hydroxychloroquine 200 mg tablet 200 mg PO BID 05/17/24
methotrexate sodium 2.5 mg tablet 7.5 mg PO TH 05/17/24
warfarin 5 mg tablet 10 mg PO HS 05/17/24
Review of Systems
-
History Source: Patient
Constitutional: Reports Fever
EENT: Reports No Symptoms
Respiratory: Reports No Symptoms
Cardiac: Reports No Symptoms
Abdomen/GI: Reports No Symptoms
: Reports No Symptoms
Musculoskeletal: Reports Joint Pain and Joint Swelling
Skin: Reports No Symptoms
Neurological: Reports No Symptoms
Endocrine: Reports No Symptoms
Hematologic/Lymphatic: Reports No Symptoms
Psych: Reports No Symptoms
Physical Exam
Vital Signs
Vital Signs
Temp Pulse Resp BP Pulse Ox
98.4 F 75 18 130/80 99
05/17/24 15:32 05/17/24 15:32 05/17/24 15:32 05/17/24 15:32 05/17/24 15:32
Physical Exam
General: Well Developed, Well Nourished and Pain
HEENT: NormoCephalic, Anicteric, Moist mucous membranes and Atraumatic
Respiratory: Clear
Cardiac: S1/S2 and Regular Rhythm
Breast: Deferred by me
GI: Soft, Non Tender and Normal Bowel Sounds
Rectal: Deferred by Provider
Genito-urinary: Deferred by me
Musculoskeletal: No Clubbing, No Cyanosis, Edema, Left Lower Extremity (Trace), Edema, Right Lower Extremity (Trace) and Other (Erythema surrounding the elbow on the right upper extremity. lacy coloration. Mild edema. Mild tenderness to palpation
of the epicondyles. Range of motion is reduced on flexion and extension.)
Neuro: AO x 3 and Nonfocal/grossly intact
Hematologic/Lymphatic: No Lymphadenopathy
Psych: Calm
Laboratory Results
-
05/17/24 15:45
05/17/24 15:45
Laboratory Results
Total Bilirubin 1.3 mg/dl (0.2-1.3) 05/17/24 15:45
AST 20 U/L (17-59) 05/17/24 15:45
ALT 20 U/L (0-50) 05/17/24 15:45
Alkaline Phosphatase 58 U/L (38-126) 05/17/24 15:45
Data Reviewed
-
CT Scan: Report Reviewed by me
Lab Data: Labs Reviewed by me
Old Records: Reviewed
Impression/Plan
-
IMPRESSION:
68-year-old male with history of rheumatoid arthritis, hypertension, NATHEN on CPAP, paroxysmal atrial fibrillation on anticoagulation who presents with apparent spontaneous or erythema, swelling and pain of the right upper extremities around the
elbow. His labs are completely reassuring with normal CBC normal electrolytes being creatinine, and normal ESR. CRP pending. Ultrasound is negative for DVT. CT shows moderate to small joint effusion and surrounding soft tissue edema but no bony
abnormality, abscess or subtle fluid collection.
PLAN:
1. Elbow swelling -suspect soft tissue cellulitis. Less likely infectious arthritis with negative ESR and CBC. Case reviewed with orthopedics who does not recommend any arthrocentesis at this time. He
- admit to med/surg
- keep arm elevated
- blood cultures if spike fever
- continue IV cefazolin
- pain control
- Ortho aware and consulted, will see in am
2. pAFIB
- continue diltiazem and coumadin
- inr in am (was 2.4 on friday)
3. HTN
- continue losartan
4. RA
- continue Plaquenil and methotrexate per home regimen
DVT PPX - on coumadin
Code status - Full Code
[2024-05-17] MEDS: FLUSH (NSS) 1 FLUSH IV (22:11)
[2024-05-17] MEDS: ANCEF 5 IV (22:11)
[2024-05-17] MEDS: ROXICODONE 5 MG PO (22:40)
[2024-05-18 00:12] VITALS: BP 145/97; BMI 45.1
[2024-05-18] MEDS: COUMADIN 10 MG PO ×2 (00:55→22:26)
[2024-05-18] MEDS: PLAQUENIL 200 MG PO ×3 (01:25→20:13)
[2024-05-18] MEDS: TORADOL 10 MG IV ×4 (02:24→23:50)
--- NOTE | 2024-05-18 05:40 | CON.ORTHO ---
Consultation
-
Date/Time Consultation Requested: 05/17/20242126
Date/Time Consultation Performed: 05/18/2024 0800
Requesting Provider: BETO Bradley
Performing Provider: MARIBEL Barrios, Dr. Anthony Rizzo.
Reason for Consultation: R elbow pain
Consultation - Orthopedics
History
68-year-old male currently admitted to [facility] with pain and swelling about his right elbow. He has an extensive medical history and reports having his PT/INR drawn on Friday morning and soon after had pain of swelling and redness about
his right elbow and fevers. He reports difficulty with range of motion and was brought into the emergency room. He was admitted for possible concern for septic arthritis and was started on antibiotics and CT scan performed.
Allergies / Home Medications
Past Medical History
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
Additional Past Medical History:
Her rheumatoid arthritis
Past Surgical History: Reports Cholecystectomy, Orthopedic and Other (Appendectomy, right thumb bone resection and grafting for cancer)
Social History
Tobacco: Non-smoker
Alcohol: None
Drug: None
Personal:
Living: With Family
Employment: Retired
Family History
Family History: Not pertinent
Allergy/AdvReac Type Severity Reaction Status Date / Time
theophylline Allergy Anaphylaxis Verified 11/15/22 17:55
�Medication �Instructions �Recorded
losartan 100 mg tablet 100 mg PO DAILY Blood pressure #0 09/15/22
tabs
diltiazem HCl 180 mg 180 mg PO DAILY #30 tabs 11/15/22
tablet,extended release 24 hr
(Cardizem LA)
acetaminophen 500 mg tablet 1,000 mg PO Q6HPRN PRN mild pain 05/17/24
(Tylenol Extra Strength)
folic acid 1 mg tablet 1 mg PO DAILY 05/17/24
hydroxychloroquine 200 mg tablet 200 mg PO BID 05/17/24
methotrexate sodium 2.5 mg tablet 7.5 mg PO TH 05/17/24
warfarin 5 mg tablet 10 mg PO HS 05/17/24
Vital Signs / Lab Results
Temp Pulse Resp BP Pulse Ox
98.1 F 78 18 145/97 95
05/18/24 00:12 05/18/24 00:12 05/18/24 00:12 05/18/24 00:12 05/18/24 00:12
PHYSICAL EXAM: Focused examination of the right upper extremity show a resolving ecchymosis about the antecubital fossa and slightly lateral. There is no evidence of any olecranon bursitis. There is minimal erythema surrounding the elbow. He is
neurovascularly intact C5-T1 and demonstrates elbow range of motion of 90 degrees of flexion to approximately 10 degrees shy of terminal extension
IMAGING: CT performed of the right elbow without contrast shows no acute osseous abnormalities. Mild degenerative changes of the elbow joint with some calcification of the tricep tendon. Small nonspecific joint effusion without fluid collection in
the soft tissues
LABS:
WBC: 7.4
CRP: 130.7 05/17/2024
ESR: 15
Assessment / Plan
68-year-old male with pain and swelling and fevers with limited range of motion of the right elbow after recent phlebotomy with concern for septic arthritis with imaging showing no specific fluid collection he had significant improvement per patient
and on clinical exam. Given improvement and suspected inoculation from phlebotomy, less likely for septic arthritis; given good response to current treatment plan, recommend continue with current antibiotics and will follow clinically- if symptoms
return or does not continue to improve, will reconsider joint aspiration for diagnostic purpose.
Ortho to follow
[2024-05-18] MEDS: ANCEF 10 IV ×3 (06:25→22:26)
[2024-05-18 06:29] LABS: Hematocrit 38.6 % (39.0-52.0); Hemoglobin 12.8 g/dL (13.0-18.0); Mean Corp Hgb Conc. 33.2 g/dL (33.0-37.0); Mean Corpuscular Hgb 30.2 pg (27.0-31.0); Mean Platelet Volume 9.6 fL (7.4-10.4); Platelet Count 146 10^3/uL (130-400); Red Blood Cell Count 4.24 10^6/uL (4.70-6.10); Red Cell Dist. Width 15.1 % (11.5-14.5); White Blood Cell Count 7.4 10^3/uL (4.8-10.8)
[2024-05-18 06:41] LABS: INR 2.26; PT 25.1 Sec (11.4-14.6)
[2024-05-18 06:59] LABS: Blood Urea Nitrogen 21 mg/dl (9-20); Calcium 9.1 mg/dl (8.4-10.2); Carbon Dioxide 26 mmol/L (22-30); Chloride 104 mmol/L (98-107); Estimated Creatinine Clearance 101 ml/min; Glucose 100 mg/dl (70-99); Potassium 4.1 mmol/L (3.5-5.1); Sodium 137 mmol/L (135-145); eGFR > 60.00
[2024-05-18 08:00] VITALS: BP 118/61
--- NOTE | 2024-05-18 08:17 | W.PN.UPDATE ---
Update Note
Progress Note Update
full H and P to follow
Pt seen and examined this AM
Pt reports improved pain significantly; minimal erythema on exam, AROM 90 flexion to 10 degrees shy of terminal extension. No olecranon bursitis; no palpable fluid collection.
Given improvement and suspected inoculation from phlebotomy, less likely for septic arthritis; given good response to current treatment plan, recommend continue with current antibiotics and will follow clinically- if symptoms return or does not
continue to improve, will reconsider joint aspiration for diagnostic purpose.
Ortho to follow
--- NOTE | 2024-05-18 08:44 | W.PN.HOSP.TC ---
Today's Communication/Plan
-
IV Cefazolin
possible discharge tomorrow on oral antibiotics
Assessment / Plan
Assessment / Plan
IMPRESSION:
68-year-old male with history of rheumatoid arthritis, hypertension, NATHEN on CPAP, paroxysmal atrial fibrillation on anticoagulation who presents with apparent spontaneous or erythema, swelling and pain of the right upper extremities around the
elbow. His labs are completely reassuring with normal CBC normal electrolytes being creatinine, and normal ESR. CRP pending. Ultrasound is negative for DVT. CT shows moderate to small joint effusion and surrounding soft tissue edema but no bony
abnormality, abscess or subtle fluid collection.
PLAN:
1. Elbow swelling -suspect soft tissue cellulitis.
- admit to med/surg
- keep arm elevated
- continue IV cefazolin
- pain control
- appreciate ortho eval
2. pAFIB
- continue diltiazem and coumadin
- inr in am (was 2.4 on friday)
3. HTN
- continue losartan
4. RA
- continue Plaquenil and methotrexate per home regimen
DVT PPX - on coumadin
Code status - Full Code
Anticipated Discharge: 24 - 48 hours
Subjective/Interval History
-
Date of Service: May 18, 2024
elbow less swollen with improved mobility
no fevers overnight
Objective Data
-
Labs:
Laboratory Results
05/18/24
05:52
WBC 7.4
Hgb 12.8 L
Hct 38.6 L
Plt Count 146
PT 25.1 H
INR 2.26
Sodium 137
Potassium 4.1
Chloride 104
Carbon Dioxide 26
BUN 21 H
Creatinine 1.1
Glucose 100 H
Calcium 9.1
Vital Signs:
Vital Signs
Temp Pulse Resp BP Pulse Ox
98.1 F 78 18 145/97 95
05/18/24 00:12 05/18/24 00:12 05/18/24 00:12 05/18/24 00:12 05/18/24 00:12
I&O
05/17/24 05/18/24 05/19/24
06:59 06:59 06:59
Intake Total 120 / 120
Balance 120 / 120
Review of Systems
-
History Source: Patient
All other systems: Reviewed and negative
Physical Exam
-
General: No Apparent Distress
HEENT: PERRLA
Respiratory: Clear to Auscultation; Negative Wheezes
Cardiac: Regular Rhythm and S1/S2
GI: Soft and Nontender
Musculoskeletal: No Edema
Skin: Warm and Dry; Negative Rash
Neuro: AO x 3
Psych: Calm
Data Reviewed
-
Diagnostic Radiology: Report Reviewed by me
Labs: Labs Reviewed by me
[2024-05-18] MEDS: COZAAR 100 MG PO (08:59)
[2024-05-18] MEDS: CARDIZEM CD 180 MG PO (08:59)
[2024-05-18] MEDS: FOLVITE 1 MG PO (08:59)
--- NOTE | 2024-05-18 11:20 | CM ---
Addendum entered by Khushi Crocker 05/18/24 11:23:
Advanced directive packet provided.
Original Note:
Patient seen bedside.
IA completed.
Patient vies with spouse and son in a 2 story home.
Patient independent prior to admission without assistive devices.
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
no hx VN.
Patient thinks he will be transitioned to oral meds prior to d/c.
Spouse or son will transport.
PCP; Dr Marcos
Pharmacy: [facility]
Plan: Home no needs anticipated.
[2024-05-18 16:00] VITALS: BP 131/55
[2024-05-18 23:25] VITALS: BP 138/70
--- NOTE | 2024-05-19 02:41 | DOWNTIME ---
There was a [employer] Downtime on 05/19/2024 from 0100 to 05/19/2023 at 0235 . Downtime documentation of patient's care, including medication administrations, has been reconciled in the electronic record per guidelines. Refer to the
patient's paper chart under the miscellaneous tab to see printed paper medication records and downtime forms.
[2024-05-19] MEDS: ANCEF 10 IV (05:31)
--- NOTE | 2024-05-19 07:42 | W.PN.UPDATE ---
Update Note
Progress Note Update
Patient reports significant improvement in symptoms with IV antibiotics overnight. Afebrile. WBC count normal.
No longer tender to palpation and ROM has significantly improved. He does report continued stiffness, but this is baseline with his RA.
No erythema, swelling, or large joint effusion noted. ROM 5-110 degrees with stiffness, no pain.
No suspicion for septic joint at this time. No surgical intervention indicated.
Will sign off from orthopedic standpoint. Please reengage with any further questions/concerns.
[2024-05-19 07:51] VITALS: BP 131/63
[2024-05-19] MEDS: COZAAR 100 MG PO (08:06)
[2024-05-19] MEDS: FOLVITE 1 MG PO (08:06)
[2024-05-19] MEDS: PLAQUENIL 200 MG PO (08:06)
[2024-05-19] MEDS: CARDIZEM CD 180 MG PO (08:06)
[2024-05-19 08:10] LABS: INR 2.31; PT 25.8 Sec (11.4-14.6)
--- NOTE | 2024-05-19 08:10 | W.PN.HOSP.TC ---
Today's Communication/Plan
-
OK for DC today
Assessment / Plan
Assessment / Plan
IMPRESSION:
68-year-old male with history of rheumatoid arthritis, hypertension, NATHEN on CPAP, paroxysmal atrial fibrillation on anticoagulation who presents with swelling and erythema around elbow. His labs are completely reassuring with normal CBC normal
electrolytes being creatinine, and normal ESR. CRP pending. Ultrasound is negative for DVT. CT shows moderate to small joint effusion and surrounding soft tissue edema but no bony abnormality, abscess or subtle fluid collection.
PLAN:
1. Elbow cellulitis
- admit to med/surg
- keep arm elevated
- s/p 1.5 days IV Cefazolin with significant improvement --> Ok for DC on 8 more days of Keflex
- pain control
- appreciate ortho eval - no need for intervention; infection not in the joint
2. pAFIB
- continue diltiazem and coumadin
- inr in am (was 2.4 on friday)
3. HTN
- continue losartan
4. RA
- continue Plaquenil and methotrexate per home regimen
DVT PPX - on coumadin
Code status - Full Code
Anticipated Discharge: Today
Subjective/Interval History
-
Date of Service: May 19, 2024
feeling better
no fevers overnight
improved mobility of right arm
Objective Data
-
Labs:
Laboratory Results
05/19/24
07:35
PT Pending
INR Pending
Vital Signs:
Vital Signs
Temp Pulse Resp BP Pulse Ox
97.6 F 53 17 131/63 97
05/19/24 07:51 05/19/24 07:51 05/19/24 07:51 05/19/24 07:51 05/19/24 07:51
I&O
05/18/24 05/19/24 05/20/24
06:59 06:59 06:59
Intake Total 120 / 120 960 / 960
Balance 120 / 120 960 / 960
Review of Systems
-
History Source: Patient
All other systems: Reviewed and negative
Physical Exam
-
General: No Apparent Distress
HEENT: PERRLA
Respiratory: Clear to Auscultation; Negative Wheezes
Cardiac: Regular Rhythm and S1/S2
GI: Soft and Nontender
Musculoskeletal: No Edema
Skin: Warm and Dry; Negative Rash
Neuro: AO x 3
Psych: Calm
Data Reviewed
-
Diagnostic Radiology: Report Reviewed by me
Labs: Labs Reviewed by me
--- NOTE | 2024-05-19 08:18 | W.DS.TRANS ---
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
-
Discharge Instructions:
Discharge Diagnosis/Procedures Right Elbow Cellulitis
Diet Regular
Activity As tolerated
Driving Restrictions As prior to admission
Blood Work INR as scheduled on Friday.
Instructions:
Stand-Alone Forms:
Changes to Home Medications: Yes
Discharge Medications:
DC Medications w/original date entered in [employer]
losartan 100 mg tablet 100 mg PO DAILY Blood pressure #0 tabs 09/15/22
diltiazem HCl 180 mg tablet,extended release 24 hr (Cardizem LA) 180 mg PO DAILY #30 tabs 11/15/22
acetaminophen 500 mg tablet (Tylenol Extra Strength) 1,000 mg PO Q6HPRN PRN mild pain 05/17/24
folic acid 1 mg tablet 1 mg PO DAILY 05/17/24
hydroxychloroquine 200 mg tablet 200 mg PO BID 05/17/24
methotrexate sodium 2.5 mg tablet 7.5 mg PO TH 05/17/24
warfarin 5 mg tablet 10 mg PO HS 05/17/24
cephalexin 500 mg capsule 500 mg PO QID #34 caps 05/19/24
Home Medication Changes
You have 8 1/2 more days of antibiotics
While treating infection, skip Methotrexate this week.
Pending Results: No
[2024-05-19] MEDS: TYLENOL 650 MG PO (10:31)
--- NOTE | 2024-05-19 10:40 | CM ---
CM reviewed chart and noted dc order
Bedside meeting with pt- no dc needs noted
IMM verbally reviewed- copy provided
He will call son for ride home
Discharge Disposition- home no needs, family transport
[2024-05-19 12:00] VITALS: BP 91/64
--- NOTE | 2024-05-19 13:27 | W.DCSUMMARY ---
Discharge Summary
Discharge Data
Date of Admission: 05/18/24
Date of Discharge: 05/19/24
-
Pending Results: No
Hospital Course
Discharging Physician : Dr. Beatriz Mccloud
Disposition : Home
Primary care physician : Dr. Dionte Marcos
Principal Discharge diagnosis : Right Elbow Cellulitis
Hospital Course :
Mr. Maria D Kiran is a 68-year-old man with history of rheumatoid arthritis, hypertension, NATHEN on CPAP, paroxysmal atrial fibrillation on anticoagulation who presents with swelling and erythema around elbow. Triage vitals stable. Labs
WNL. Ultrasound negative for DVT. CT shows moderate to small joint effusion and surrounding soft tissue edema but no bony abnormality, abscess or subtle fluid collection. He was started on IV Cefazolin and admitted to medicine with orthopedics
consulting. Over the next 36 hours patient remained afebrile with significant improvement in swelling and erythema on exam. No suspicion for septic joint or need for intervention per Orthopedics. He is discharged with Keflex to complete a 10 day
antibiotic course.
Patient will have INR checked on Friday. He is told to hold Methotrexate this week.
Time spent on discharge was 32 minutes.
Important imaging findings :
RUE US:
IMPRESSION:
Normal.
CT
IMPRESSION: No evidence for fracture or dislocation.
Probable small to moderate joint effusion, which is nonspecific. Joint infection cannot be excluded by imaging.
No evidence for bony destruction with no findings to suggest osteomyelitis.
Procedure findings :
Discharge Plan
-
Patient Disposition: Home (Routine Discharge)
Discharge Diagnosis/Procedures: Right Elbow Cellulitis
Condition: Good
Diet: Regular
Activity: As tolerated
Driving Restrictions: As prior to admission
Blood Work: INR as scheduled on Friday.
Referrals:
Dionte Marcos MD [Family Provider] - in less than 1 week
Additional Discharge Medication Instructions: You have 8 1/2 more days of antibiotics
While treating infection, skip Methotrexate this week.
Prescriptions:
New
cephalexin 500 mg capsule
500 mg PO QID Qty: 34 0RF
Continued
losartan 100 mg Tablet
100 mg PO DAILY Qty: 0 0RF
diltiazem HCl [Cardizem LA] 180 mg tablet extended release 24 hr
180 mg PO DAILY Qty: 30 0RF
acetaminophen [Tylenol Extra Strength] 500 mg Tablet
1,000 mg PO Q6HPRN PRN (Reason: mild pain)
warfarin 5 mg Tablet
10 mg PO HS
folic acid 1 mg Tablet
1 mg PO DAILY
hydroxychloroquine 200 mg Tablet
200 mg PO BID
Held
methotrexate sodium 2.5 mg Tablet
7.5 mg PO TH
Hold Instructions: Resume on 05/27/24.
Discharge Orders:
Discharge Patient (As Directed); Ordered 05/19/24
Ordered By: Beatriz Mccloud
Discharge Date and Time
Discharge Date/Time: 05/19/24 12:05
Print Language: AZERBAIJANI
== END 2024-05-19 12:05 | disposition home or self-care (01) | DRG 603 ==
LOC: 1 ACUTE 09:13
PROVIDERS: Emergency Medicine; Nurse Practitioner; ADMITTING PHYSICIAN Internal Medicine; ATTENDING PHYSICIAN Student in an Organized Health Care Education/Training Program; CONSULT PHYSICIAN Specialist; EMERGENCY PHYSICIAN Emergency Medicine; FAMILY PHYSICIAN Family Medicine
DX: L03.113 Cellulitis of right upper limb (principal); M06.9 Rheumatoid arthritis, unspecified; I48.0 Paroxysmal atrial fibrillation; Z79.01 Long term (current) use of anticoagulants; I10 Essential (primary) hypertension; Z79.899 Other long term (current) drug therapy; Z11.52 Encounter for screening for COVID-19
CPT/HCPCS: 73200; 80048; 80053; 85025; 85027; 85610; 85652; 86140; 87502; 87811; 93971; 99285

== ENCOUNTER → 2024-05-21 06:54 | Outpatient (REF) | payer MEDICARE, OTHER, SELFPAY ==
[2024-05-21 07:58] LABS: INR 2.25
== END ==
LOC: REG 06:54
PROVIDERS: ATTENDING PHYSICIAN Student in an Organized Health Care Education/Training Program; FAMILY PHYSICIAN Family Medicine
DX: I48.0 Paroxysmal atrial fibrillation (principal)
CPT/HCPCS: 36415; 85610

== ENCOUNTER → 2024-05-24 15:38 | Outpatient (REF) | payer MEDICARE, OTHER, SELFPAY ==
[2024-05-24 17:17] LABS: INR 2.26; PT 25.1 Sec (11.4-14.6)
== END ==
LOC: REG 15:38
PROVIDERS: ATTENDING PHYSICIAN Student in an Organized Health Care Education/Training Program; FAMILY PHYSICIAN Family Medicine
DX: I48.0 Paroxysmal atrial fibrillation (principal)
CPT/HCPCS: 36415; 85610

== ENCOUNTER → 2024-06-01 14:49 | Outpatient (REF) | payer MEDICARE, OTHER, SELFPAY ==
[2024-06-01 15:42] LABS: INR 3.52
== END ==
LOC: REG 14:49
PROVIDERS: ATTENDING PHYSICIAN Student in an Organized Health Care Education/Training Program
DX: I48.0 Paroxysmal atrial fibrillation (principal)
CPT/HCPCS: 36415; 85610

== ENCOUNTER 2024-06-03 07:59 | Emergency (ER) | payer MEDICARE, OTHER, SELFPAY ==
[2024-06-03 08:01] VITALS: BP 168/97
--- NOTE | 2024-06-03 08:27 | ED.GENMED ---
History of Present Illness
General
Chief Complaint: Musculo-Skeletal Complaint
Source: patient
Exam Limitations: none
Time Seen by Provider: 06/03/24 08:19
Nursing documentation reviewed up to this point in time: agreed with
History of Present Illness
History of Present Illness:
Patient admitted to the hospital 2 weeks ago and treated for right elbow cellulitis, which developed after blood draw, presents to ED secondary to worsening elbow pain with warmth and swelling over the past 2 days. Patient's last dose of
antibiotics, Keflex, was 1 week ago. Patient does report having had another blood draw from the same affected arm 1 week ago, which is routinely performed as he receives weekly INR check. Denies fever, but reports chills sensation with low-grade
fever last night. Denies nausea or vomiting. Denies direct trauma. Denies loss of sensation or weakness. Patient states that when he finished his antibiotics 1 week ago, his symptoms had almost resolved completely, but not entirely. Since then,
he has has had minimal discomfort, which worsened 2 days ago. Denies previous history of skin infection.
Past History
Past History
ED Past Medical History: Arrthythmia (RA), HTN and Other (adrenal tumor, [place]'s disease, NATHEN, morbid obestity)
ED Past Surgical History: Other (adrenal tumor resection)
Social History
Tobacco: Non-smoker
Alcohol: None
Drug: None
Personal:
Living: with family
Employment: Employed
Family History
Family History: Other (Noncontributory)
Review of Systems
Review of Systems
Allergies reviewed?: Yes
All Other Systems: ROS reviewed and negative except as documented in HPI and ROS
Constitutional: Denies chills
Respiratory: Reports no symptoms
Cardiac: Reports no symptoms
ABD/GI: Reports no symptoms
Musculoskeletal: Reports other (Elbow pain with swelling)
Skin: Reports no symptoms
Neurological: Reports no symptoms
Phy Exam
Physical Exam
Physical Exam:
Physical Exam
General: no apparent distress, not acutely ill. afebrile
Head: nc/at. eomi
Neck: supple. normal range of motion
Neuro: alert and oriented x 3. no focal neurological deficits
Skin: no rash
Psychiatric: well kept. interactive and cooperative
Extremities: mild swelling/erythema/warmth noted over right olecranon with associated distal swelling, i.e. hand. no open drainage. right elbow ROM, limited due to pain
Course
Orders/Labs/Results
Orders:
Orders
06/03/24 08:33
Acetaminophen [Tylenol] 650 mg PO NOW STA
06/03/24 09:11
Basic Metabolic Panel Urgent
Complete Blood Count/With Diff Urgent
Lactic Acid Q4H
Comment: CANCEL 2nd LACTIC ACID IF 1st LACTIC ACID IS LESS THAN 2
Blood Culture Q30M
LORI Source: Blood/Venous
Specimen Description:
06/03/24 09:49
Blood Culture Q30M
LORI Source: Blood/Venous
Specimen Description:
06/03/24 11:43
CeFAZolin 2 GRAM [Ancef] 2 grams in 10 ml IV NOW
Abnormal Lab Results
06/03/24
09:11
RBC 4.05 L 10^6/uL
(4.70-6.10)
Hgb 11.9 L g/dL
(13.0-18.0)
Hct 37.3 L %
(39.0-52.0)
MCHC 31.9 L g/dL
(33.0-37.0)
RDW 14.6 H %
(11.5-14.5)
Abs Immat Gran (auto) 0.1 H 10^3/uL
(0-0.05)
Absolute Lymphs (auto) 1.1 L 10^3/uL
(1.2-3.4)
Immature Gran % 1.7 H %
(0-0.5)
Lymphocytes % 16.5 L %
(20.5-51.1)
Glucose 108 H mg/dl
(70-99)
06/03/24 09:11
06/03/24 09:11
Vital Signs
Initial and Last Documented VS:
Initial Vital Signs
Temp Pulse Resp BP Pulse Ox
97.7 F 81 16 168/97 98
06/03/24 08:01 06/03/24 08:01 06/03/24 08:01 06/03/24 08:01 06/03/24 08:01
Last Documented Vital Signs
Temp Pulse Resp BP Pulse Ox
97.7 F 81 18 168/97 98
06/03/24 08:01 06/03/24 08:01 06/03/24 10:00 06/03/24 08:01 06/03/24 08:01
MDM/Problems Addressed
MDM/Problems Addressed:
Blood work within normal limits and patient remains afebrile and hemodynamically stable during observation.
Discussed with on-call orthopedic surgery, Dr. Arriaga, who also reviewed the patient's previous admission records, including orthopedic consultation note. In addition, visualized patient's right elbow via [place] text. At this point, especially
with patient having completed course of antibiotics, does not feel that joint aspiration will be helpful. As such, with patient having improved greatly with Keflex in recent past, does recommend another course of Keflex, along with close follow-up
with him in the office next week. Patient will be given return precautions, including fever/worsening pain/swelling, which should prompt patient to return to ED for reevaluation.
*Critical Care Note
Total Time (30-74mins, 75-104mins- exclusive of procedures): Not Applicable
ED Attending Note
-
Portions of this chart may have been created with voice recognition software.� Occasional wrong word or��sound alike� substitutions may have occurred due to the inherent limitations of voice recognition software.
Discharge Plan
Departure
Patient Disposition: Home (Routine Discharge)
Date of Disposition: 06/03/24
Time of Disposition: 11:01
Patient with high blood pressure during this ER visit?: Yes
Condition: Good
Discharge Problem:
Cellulitis of elbow
Instructions: Cellulitis (skin infection) in adults - ED discharge instructions
Prescriptions:
New
cephalexin 500 mg capsule
500 mg PO QID Qty: 24 0RF
No Action
losartan 100 mg Tablet
100 mg PO DAILY Qty: 0 0RF
diltiazem HCl [Cardizem LA] 180 mg tablet extended release 24 hr
180 mg PO DAILY Qty: 30 0RF
acetaminophen [Tylenol Extra Strength] 500 mg Tablet
1,000 mg PO Q6HPRN PRN (Reason: mild pain)
methotrexate sodium 2.5 mg Tablet
7.5 mg PO TH
warfarin 5 mg Tablet
10 mg PO HS
folic acid 1 mg Tablet
1 mg PO DAILY
hydroxychloroquine 200 mg Tablet
200 mg PO BID
cephalexin 500 mg capsule
500 mg PO QID Qty: 34 0RF
Referrals:
Rickey Arriaga MD [Active] -
Dionte Marcos MD [Family Provider] -
Activity Restrictions/Additional Instructions:
As discussed, please follow-up with referred orthopedic surgeon next week for reevaluation. Please consider returning to ED with worsening symptoms, i.e. fever/worsening pain/swelling. Your prescription has been sent electronically to [facility] pharmacy
in [place].
Interventions
Interventions:
*Risk Screen - Suicide Last Done: 06/03/24 08:01
*General Assessment Last Done: 06/03/24 08:54
*Neglect/Abuse Screening Last Done: 06/03/24 08:01
*ED- Fall Risk Assessment Last Done: 06/03/24 08:54
*ED COVID-19 Vaccine History Last Done: 06/03/24 08:53
*Nursing Disposition Last Done: 06/03/24 12:09
ED-Musculoskeletal Assessment Last Done: 06/03/24 09:18
Discharge Date and Time
Discharge Date/Time: 06/03/24 12:09
Print Language: MALIAN
[2024-06-03 08:51] VITALS: BMI 45.0
[2024-06-03] MEDS: TYLENOL 650 MG PO (08:51)
[2024-06-03 09:28] LABS: % Basophils 0.6 % (0-2); % Immature Granulocytes 1.7 % (0-0.5); % Lymphocytes 16.5 % (20.5-51.1); % Monocytes 8.2 % (1.7-9.3); Absolute Eosinophils 0.1 10^3/uL (0-0.7); Absolute Immature Granulocytes 0.1 10^3/uL (0-0.05); Absolute Lymphocytes 1.1 10^3/uL (1.2-3.4); Absolute Monocytes 0.5 10^3/uL (0.1-0.6); Absolute Neutrophils 4.6 10^3/uL (1.4-6.5); Hematocrit 37.3 % (39.0-52.0); Hemoglobin 11.9 g/dL (13.0-18.0); Mean Corp Hgb Conc. 31.9 g/dL (33.0-37.0); Mean Corpuscular Hgb 29.4 pg (27.0-31.0); Mean Corpuscular Volume 92.1 fL (80.0-94.0); Mean Platelet Volume 9.8 fL (7.4-10.4); Nucleated Red Blood Cells % 0 % (-); Platelet Count 150 10^3/uL (130-400); Red Blood Cell Count 4.05 10^6/uL (4.70-6.10); Red Cell Dist. Width 14.6 % (11.5-14.5); White Blood Cell Count 6.4 10^3/uL (4.8-10.8)
[2024-06-03 09:38] LABS: Lactic Acid 1.6 mmol/L (0.7-2.0)
[2024-06-03 09:39] LABS: Blood Urea Nitrogen 15 mg/dl (9-20); Calcium 9.1 mg/dl (8.4-10.2); Carbon Dioxide 27 mmol/L (22-30); Chloride 104 mmol/L (98-107); Estimated Creatinine Clearance 124 ml/min; Glucose 108 mg/dl (70-99); Potassium 3.9 mmol/L (3.5-5.1); Sodium 138 mmol/L (135-145); eGFR > 60.00
[2024-06-03] MEDS: ANCEF 10 IV (11:52)
== END 2024-06-03 12:09 | disposition home or self-care (01) ==
LOC: EMR 07:59
PROVIDERS: EMERGENCY PHYSICIAN Emergency Medicine; FAMILY PHYSICIAN Family Medicine
DX: L03.113 Cellulitis of right upper limb (principal); I10 Essential (primary) hypertension; G47.33 Obstructive sleep apnea (adult) (pediatric)
CPT/HCPCS: 99284; 96374; 80048; 83605; 85025; 87040

== ENCOUNTER 2024-06-04 03:48 | Observation (INO) | payer MEDICARE, OTHER, SELFPAY ==
[2024-06-03 20:07] VITALS: BMI 44.4
[2024-06-03 20:45] LABS: % Basophils 0.7 % (0-2); % Eosinophils 1.7 % (0-6); % Immature Granulocytes 1.2 % (0-0.5); % Lymphocytes 13.8 % (20.5-51.1); % Monocytes 9.8 % (1.7-9.3); % Neutrophils 72.8 % (42.2-75.2); Absolute Basophils 0.1 10^3/uL (0-0.2); Absolute Eosinophils 0.1 10^3/uL (0-0.7); Absolute Immature Granulocytes 0.1 10^3/uL (0-0.05); Absolute Monocytes 0.7 10^3/uL (0.1-0.6); Absolute Neutrophils 5.5 10^3/uL (1.4-6.5); Hematocrit 37.4 % (39.0-52.0); Hemoglobin 12.6 g/dL (13.0-18.0); Mean Corp Hgb Conc. 33.7 g/dL (33.0-37.0); Mean Corpuscular Hgb 29.9 pg (27.0-31.0); Mean Corpuscular Volume 88.8 fL (80.0-94.0); Mean Platelet Volume 10.1 fL (7.4-10.4); Nucleated Red Blood Cells % 0 % (-); Platelet Count 168 10^3/uL (130-400); Red Blood Cell Count 4.21 10^6/uL (4.70-6.10); Red Cell Dist. Width 14.4 % (11.5-14.5); White Blood Cell Count 7.5 10^3/uL (4.8-10.8)
[2024-06-03 21:09] LABS: AST (SGOT) 23 U/L (17-59); Blood Urea Nitrogen 16 mg/dl (9-20); Carbon Dioxide 24 mmol/L (22-30); Chloride 103 mmol/L (98-107); Glucose 116 mg/dl (70-99); Sodium 136 mmol/L (135-145); Total Bilirubin 0.9 mg/dl (0.2-1.3); Total Protein 6.6 g/dl (6.3-8.2)
[2024-06-03 21:19] LABS: ALT (SGPT) 28 U/L (0-50); Alkaline Phosphatase 78 U/L (38-126); Calcium 9.2 mg/dl (8.4-10.2); eGFR > 60.00
[2024-06-03 23:00] VITALS: BP 159/89
[2024-06-04] VITALS (9 sets, daily range): BP systolic 123–187; BP diastolic 70–154
--- NOTE | 2024-06-04 00:11 | ED.GENMED ---
History of Present Illness
General
Chief Complaint: Fever
Source: patient and records
Exam Limitations: none
Time Seen by Provider: 06/03/24 23:37
Nursing documentation reviewed up to this point in time: agreed with
History of Present Illness
History of Present Illness:
68-year male presents with fever chills right elbow pain seen here earlier today diagnosis cellulitis started on Keflex and 1 dose went home had fever and chills increased pain has a history of rheumatoid, was admitted a few months ago with similar
complaints treated with IV antibiotics and improved was admitted a few months ago with similar complaints treated with IV antibiotics and improved had imaging at that time no imaging today
Past History
Past History
ED Past Medical History: Arrthythmia (RA), HTN and Other (adrenal tumor, [place]'s disease, NATHEN, morbid obestity)
ED Past Surgical History: Other (adrenal tumor resection)
Social History
Tobacco: Non-smoker
Alcohol: None
Drug: None
Personal:
Living: with family
Employment: Employed
Family History
Family History: Other (Noncontributory)
Review of Systems
Review of Systems
All Other Systems: Not applicable
Constitutional: Reports fever, fatigue and chills
EENT: Reports no symptoms
Respiratory: Reports no symptoms
Musculoskeletal: Reports joint pain
Skin: Reports other (Elbow pain)
Phy Exam
Physical Exam
Physical Exam:
Physical Exam
General: Ill-appearing male
Neck: No jaw
Heart: s1/s2 regular rate and rhythm, no murmur. equal radial pulses.
Lungs: no acute respiratory distress. clear bilaterally
Neuro: alert and oriented. no focal neurological deficits
Skin: no rash
Psychiatric: well kept. interactive and cooperative
Extremities: Warmth over the right elbow up into the mid humerus decreased range of motion of the joint
Course
Orders/Labs/Results
Orders:
Orders
06/03/24 20:33
C-Reactive Protein Urgent
Comment: ADD ON
CMP [Comprehensive Metabolic Panel] Urgent
Complete Blood Count/With Diff Urgent
Erythrocyte Sed Rate Urgent
Comment: ADD ON
06/04/24 00:00
Blood Culture Q30M
LORI Source: Blood/Venous
Specimen Description:
Acetaminophen [Tylenol] 1,000 mg PO NOW STA
Elbow, Right, 2 view [CR Elbow - Right Min 2 View] Urgent
Comment:
Reason For Exam: swelling
06/04/24 00:01
Add On- LAB Urgent
Tests Added?: esr/crp
Morphine Sulfate 4 mg IV NOW STA
06/04/24 00:02
CeFAZolin 2 GRAM [Ancef] 2 grams in 10 ml IV NOW
06/04/24 00:30
Prothrombin Time Urgent
Blood Culture Q30M
LORI Source: Blood/Venous
Specimen Description:
Abnormal Lab Results
06/03/24
20:33
RBC 4.21 L 10^6/uL
(4.70-6.10)
Hgb 12.6 L g/dL
(13.0-18.0)
Hct 37.4 L %
(39.0-52.0)
Abs Immat Gran (auto) 0.1 H 10^3/uL
(0-0.05)
Absolute Lymphs (auto) 1.0 L 10^3/uL
(1.2-3.4)
Absolute Monos (auto) 0.7 H 10^3/uL
(0.1-0.6)
Immature Gran % 1.2 H %
(0-0.5)
Lymphocytes % 13.8 L %
(20.5-51.1)
Monocytes % 9.8 H %
(1.7-9.3)
Glucose 116 H mg/dl
(70-99)
06/03/24 20:33
06/03/24 20:33
Vital Signs
Initial and Last Documented VS:
Initial Vital Signs
Temp Pulse Resp Pulse Ox
98.4 F 84 18 97
06/03/24 20:20 06/03/24 20:20 06/03/24 20:20 06/03/24 20:20
Last Documented Vital Signs
Temp Pulse Resp BP Pulse Ox
98.4 F 69 16 159/89 98
06/03/24 20:20 06/03/24 23:30 06/03/24 23:30 06/03/24 23:00 06/03/24 23:30
MDM/Problems Addressed
Differential Diagnosis Includes:
Cellulitis gout, septic arthritis, pseudogout, olecranon bursitis,
MDM/Problems Addressed:
Fever chills elbow pain
Chronic conditions affecting care:
Rheumatoid
Acute Exacerbation and/or Progression of Chronic Illness:
Rheumatoid
*Radiology
Radiology exam reviewed: preliminary read by ED provider
*Pulse Oximetry
Patient hypoxic: no
*Critical Care Note
Total Time (30-74mins, 75-104mins- exclusive of procedures): Not Applicable
Data Reviewed
Review of Other/Old Records Reveals: Labs, Records and Discharge Summary
Source: patient, records, previous radiology exam and previous hospital records
Update Note
Update Note:
Update patient with fever and chills had some Keflex earlier today prior records reviewed seems to be a similar presentation which improved with IV antibiotics fairly impressive swelling cellulitis, low threshold to admit
ED Attending Note
-
Portions of this chart may have been created with voice recognition software.� Occasional wrong word or��sound alike� substitutions may have occurred due to the inherent limitations of voice recognition software.
Discharge Plan
Departure
Patient Disposition: Admit
Date of Disposition: 06/04/24
Time of Disposition: 00:59
Admit to: Med/Surg
Presentation/result/management discussed w/ accepting MD/DO: Hospitalist
Patient with high blood pressure during this ER visit?: No
Condition: Fair
Discharge Problem:
Cellulitis of right elbow
Prescriptions:
No Action
losartan 100 mg Tablet
100 mg PO DAILY Qty: 0 0RF
diltiazem HCl [Cardizem LA] 180 mg tablet extended release 24 hr
180 mg PO DAILY Qty: 30 0RF
acetaminophen [Tylenol Extra Strength] 500 mg Tablet
1,000 mg PO Q6HPRN PRN (Reason: mild pain)
methotrexate sodium 2.5 mg Tablet
7.5 mg PO TH
warfarin 5 mg Tablet
10 mg PO HS
folic acid 1 mg Tablet
1 mg PO DAILY
hydroxychloroquine 200 mg Tablet
200 mg PO BID
cephalexin 500 mg capsule
500 mg PO QID Qty: 34 0RF
cephalexin 500 mg capsule
500 mg PO QID Qty: 24 0RF
Referrals:
Dionte Marcos MD [Family Provider] -
Interventions
Interventions:
*Risk Screen - Suicide Last Done: 06/03/24 20:20
*General Assessment Last Done: 06/03/24 20:20
*Neglect/Abuse Screening Last Done: 06/03/24 20:20
*ED- Fall Risk Assessment Last Done: 06/03/24 20:20
*ED COVID-19 Vaccine History Last Done: 06/03/24 20:20
ED- Neurological Assessment Last Done: 06/03/24 23:31
ED-Skin Assessment Last Done: 06/03/24 23:35
Discharge Date and Time
Print Language: MOHAWK
[2024-06-04] MEDS: TYLENOL 1000 MG PO ×2 (00:15→13:40)
[2024-06-04] MEDS: MORPHINE SULFATE 4 MG IV (00:31)
[2024-06-04] MEDS: ANCEF 10 IV ×3 (00:32→13:27)
[2024-06-04 00:58] LABS: INR 3.13; PT 32.5 Sec (11.4-14.6)
[2024-06-04 01:05] LABS: Erythrocyte Sed Rate 8 mm/hour (0-20)
--- NOTE | 2024-06-04 03:41 | HPS.HSE ---
Family Physician
-
Family Physician: Dionte Marcos
Chief Complaint
-
R Elbow Pain
History of Present Illness
Patient is a 68y M with PMH significant for rheumatoid arthritis on MTX, A-Fib and obesity who presents to ED complaining of R elbow pain. Patient was hospitalized at from 05/07 - 05/19 for similar complaints that began after venipuncture in the
RUE for INR check. He was treated with IV Ancef and his symptoms began to improve. He was evaluated by Ortho during that stay and had no symptoms / imaging findings / etc concerning for septic arthritis. Patient was discharged to home on oral
Keflex. he states that his symptoms continued to improve - but never fully resolved.
About 2 days ago he noted increased pain, swelling and difficulty with ROM of the R elbow (due to pain).
He was see in the ED on 06/03/24 for these complaints and received a dose of Ancef and a Rx for Keflex. He filled this Rx but has taken none of the doses yet.
Patient states that he had shaking chills and fever at home this evening to 102. He took Tylenol at home and returned to the ED for further evaluation.
Medical History
Past Medical History
Past Medical History: Reports Other
Additional Past Medical History:
Rheumatoid Arthritis
Paroxysmal Atrial Fibrillation
Bone Cancer of Thumb
Hypertension
NATHEN on CPAP
Obesity
Past Surgical History: Reports Other
Additional Past Surgical History:
Cholecystectomy
Appendectomy
Right Thumb Bone Resection / Graft
Social History
Tobacco: Former Smoker (Quit smoking in .)
Alcohol: None
Drug: None
Personal:
Living: With Family
Employment: Retired
Family History
Family History: Not pertinent
Allergies / Home Medications
Allergies reflects when Allergies were last updated in [facility].
Home Medications with original date entered in [facility]
Allergy/Medication List:
Allergies
Allergy/AdvReac Type Severity Reaction Status Date / Time
theophylline Allergy Anaphylaxis Verified 06/03/24 20:22
Home Medications
losartan 100 mg tablet 100 mg PO DAILY Blood pressure #0 tabs 09/15/22
diltiazem HCl 180 mg tablet,extended release 24 hr (Cardizem LA) 180 mg PO DAILY #30 tabs 11/15/22
acetaminophen 500 mg tablet (Tylenol Extra Strength) 1,000 mg PO Q6HPRN PRN mild pain 05/17/24
folic acid 1 mg tablet 1 mg PO DAILY 05/17/24
hydroxychloroquine 200 mg tablet 200 mg PO BID 05/17/24
methotrexate sodium 2.5 mg tablet 7.5 mg PO TH 05/17/24
warfarin 5 mg tablet See Rx Instructions .Route .COMPLEX 05/17/24
Review of Systems
-
History Source: Patient
A 12 point ROS was completed and negative except as noted: Yes
Constitutional: Reports Fever, Fatigue and Chills
Respiratory: Denies Cough or Trouble Breathing
Cardiac: Denies Chest Pain or Palpitations
Abdomen/GI: Denies Abdominal Pain, Nausea, Vomiting or Diarrhea
: Denies Dysuria, Frequency or Flank Pain
Musculoskeletal: Reports Joint Pain, Joint Swelling and Edema
Neurological: Denies Dizzy or Headache
Psych: Denies Depression or Anxiety
Physical Exam
Vital Signs
Vital Signs
Temp Pulse Resp BP Pulse Ox
98.4 F 66 14 127/70 93
06/03/24 20:20 06/04/24 02:00 06/04/24 02:00 06/04/24 02:00 06/04/24 02:00
Physical Exam
General: Other (68y M in no acute distress.)
HEENT: Moist mucous membranes, PERRLA and Other (Thick neck.)
Respiratory: Other (Decreased at bases - otherwise clear.)
Cardiac: S1/S2 and Regular Rhythm; No Murmur
GI: Soft, Non Tender, Non Distended, Normal Bowel Sounds and Other (obese.)
Musculoskeletal: No Clubbing, No Cyanosis and Other (Increased warmth / tenderness R elbow. No evident bursitis / fluid collection. No significant erythema / induration. Decreased ROM due to reported pain.)
Neuro: AO x 3
Laboratory Results
-
06/03/24 20:33
06/03/24 20:33
Laboratory Results
PT 32.5 Sec (11.4-14.6) H 06/04/24 00:30
INR 3.13 06/04/24 00:30
Total Bilirubin 0.9 mg/dl (0.2-1.3) 06/03/24 20:33
AST 23 U/L (17-59) 06/03/24 20:33
ALT 28 U/L (0-50) 06/03/24 20:33
Alkaline Phosphatase 78 U/L (38-126) 06/03/24 20:33
Impression/Plan
-
A/P: Patient is a 68y M with PMH significant for RA on MTX, NATHEN and hypertension who presents to ED complaining of R elbow pain, redness and fever at home.
Right Elbow Cellulitis / Arthritis
- Observe overnight for further evaluation and treatment.
- Continue IV abx for now and follow for clinical improvement.
- Monitor for any recurrent fever, worsening symptoms, etc.
- Pain control / supportive care.
- Hold further MTX for now given acute infection (patient notes that he took MTX dose 06/03/24).
- Ortho re-evaluation given recurrent symptoms. ? joint aspiration.
Paroxysmal Atrial Fibrillation
- Stable. Continue current medications.
- Continue Coumadin for stroke risk reduction.
- Follow daily INR and adjust as needed.
Benign Hypertension
- Stable. Continue current medications with holding parameters.
Rheumatoid Arthritis
- Stable. Continue Plaquenil.
- Hold MTX for now (though note that patient took his most recent dose this AM - 06/03/24).
NATHEN on CPAP
- Stable. Continue home PAP nightly.
Obesity due to excess calories
- Affects all aspects of care.
- Encourage healthy diet and increased activity with goal of weight loss.
DVT Prophylaxis: On Coumadin
Code Status: Full
[2024-06-04 06:38] LABS: Hematocrit 37.2 % (39.0-52.0); Hemoglobin 12.3 g/dL (13.0-18.0); Mean Corp Hgb Conc. 33.1 g/dL (33.0-37.0); Mean Corpuscular Volume 90.7 fL (80.0-94.0); Platelet Count 148 10^3/uL (130-400); Red Cell Dist. Width 14.4 % (11.5-14.5); White Blood Cell Count 5.8 10^3/uL (4.8-10.8)
[2024-06-04] MEDS: TORADOL 15 MG IV (06:43)
[2024-06-04 06:45] LABS: INR 3.22; PT 33.2 Sec (11.4-14.6)
[2024-06-04 07:09] LABS: Blood Urea Nitrogen 13 mg/dl (9-20); Calcium 9.4 mg/dl (8.4-10.2); Carbon Dioxide 26 mmol/L (22-30); Chloride 103 mmol/L (98-107); Estimated Creatinine Clearance > 125 ml/min; Glucose 116 mg/dl (70-99); Potassium 3.8 mmol/L (3.5-5.1); Sodium 137 mmol/L (135-145); eGFR > 60.00
--- NOTE | 2024-06-04 07:54 | W.PN.HOSP.TC ---
Addendum entered and electronically signed by Meghana Santana MD 06/04/24 15:28:
total DC time 40 min
Original Note:
Today's Communication/Plan
-
see A/P
Assessment / Plan
Assessment / Plan
HPI: 68 yo M with PMH significant for rheumatoid arthritis on MTX, A-Fib and obesity who presented to ED complaining of R elbow pain. Patient was hospitalized at from 05/07 - 05/19 for similar complaints that began after venipuncture in the RUE
for INR check. He was treated with IV Ancef and his symptoms began to improve. He was evaluated by Ortho during that stay and had no symptoms / imaging findings / etc concerning for septic arthritis. Patient was discharged to home on oral Keflex.
he states that his symptoms continued to improve - but never fully resolved.
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
He was see in the ED on 06/03/24 for these complaints and received a dose of Ancef and a Rx for Keflex. He filled this Rx but has taken none of the doses yet.
Patient states that he had shaking chills and fever at home this evening to 102. He took Tylenol at home and returned to the ED for further evaluation.
A/P:
# Right Elbow Cellulitis / Arthritis
IV abx Ancef has been started, cont for now
Follow blood cultures
Pain control / supportive care.
Hold further MTX for possible acute infection (patient notes that he took MTX dose 06/03/24).
Ortho re-evaluation
ID CS
# Paroxysmal Atrial Fibrillation, Stable.
Continue current medications.
Continue Coumadin for stroke risk reduction.
Follow daily INR and adjust as needed.
# Benign Hypertension, Stable.
Continue current medications with holding parameters.
# Rheumatoid Arthritis, Stable.
Continue Plaquenil.
Hold MTX for now (though note that patient took his most recent dose this AM - 06/03/24).
# NATHEN on CPAP, Stable.
Continue home PAP nightly.
# Obesity due to excess calories
Affects all aspects of care.
Encourage healthy diet and increased activity with goal of weight loss.
DVT Prophylaxis: On Coumadin
Code Status: Full
Anticipated Discharge: 24 - 48 hours
Subjective/Interval History
-
Date of Service: June 04, 2024
Objective Data
-
Labs:
Laboratory Results
06/03/24 06/04/24 06/04/24
20:33 00:30 06:20
WBC 7.5 5.8
Hgb 12.6 L 12.3 L
Hct 37.4 L 37.2 L
Plt Count 168 148
PT 32.5 H 33.2 H
INR 3.13 3.22
Sodium 136 137
Potassium 4.0 3.8
Chloride 103 103
Carbon Dioxide 24 26
BUN 16 13
Creatinine 0.9 0.8
Glucose 116 H 116 H
Calcium 9.2 9.4
Total Bilirubin 0.9
AST 23
ALT 28
Alkaline Phosphatase 78
Vital Signs:
Vital Signs
Temp Pulse Resp BP Pulse Ox
36.6 C 66 18 187/82 98
06/04/24 07:15 06/04/24 07:15 06/04/24 07:15 06/04/24 07:15 06/04/24 07:15
Review of Systems
-
History Source: Patient
Musculoskeletal: Reports Joint Pain (R elbow pain)
Physical Exam
-
General: Well Developed, Well Nourished, No Apparent Distress, Comfortable, Conversant and Morbidly Obese
HEENT: Normocephalic and Atraumatic
Respiratory: Clear to Auscultation and Non Labored Respirations; Negative Accessory Resp Muscle Use
Cardiac: Regular Rhythm and S1/S2
GI: Soft and Nontender
Musculoskeletal: No Edema and Other (R elbow does not appear edematous, also no significant redness )
Skin: Warm and Dry; Negative Rash
Neuro: AO x 3
Psych: Calm and Intact Judgement/Insight
Data Reviewed
-
Labs: Labs Reviewed by me
--- NOTE | 2024-06-04 08:35 | W.PN.UPDATE ---
Update Note
Progress Note Update
H&P to follow
68-year-old male readmitted for pain and swelling about his right elbow recently admitted with either soft tissue cellulitis versus septic arthritis of the right elbow relative to phlebotomy. Reports again recent blood work in this area and similar
symptoms to last presentation. Patient does report receiving multiple IV antibiotics prior to today's evaluation with orthopedic surgery. There is generalized warmth about the right elbow but no significant erythema; given he is started on
antibiotics which would potentially affect sensitivity and specificity of cultures recommend continuation with IV antibiotics and consideration of transition towards oral antibiotics; can further consider interventional radiology joint aspiration
pending response
[2024-06-04] MEDS: CARDIZEM CD 180 MG PO (09:17)
[2024-06-04] MEDS: COZAAR 100 MG PO (09:17)
[2024-06-04] MEDS: FOLVITE 1 MG PO (09:17)
[2024-06-04] MEDS: PLAQUENIL 200 MG PO (09:17)
--- NOTE | 2024-06-04 13:47 | CON.ID ---
Consultation
-
Date/Time Consultation Requested: June 04, 2024 2922
Date/Time Consultation Performed: June 04, 2024 1350
Requesting Provider: Dr. Meghana Santana
Performing Provider: Dr. Agatha Dan
Reason for Consultation: persistent elbow swelling
Chief Complaint / Past History
Chief Complaint
Recurrent right arm swelling.
History of Present Illness
68-year-old male with history of paroxysmal atrial fibrillation on Coumadin, rheumatoid arthritis on methotrexate, class III obesity who presented to the hospital last night due to fever of 102 with chills and a right arm swelling. He was recently
hospitalized from May 17 to May 19 when he developed acute onset of right elbow edema, erythema extending down the forearm and up the arm after peripheral stick for INR outpatient. CT of the upper extremity showed small joint effusion
without abscess or bone destruction. He improved on IV cefazolin then was discharged on cephalexin 500 mg 4 times daily x 10 days. The swelling and redness virtually resolved while on the cephalexin. However 2 days after he finished the
antibiotic, the right mid arm became swollen and painful again. He presented to the ER yesterday morning. Blood cultures x 2 were negative. X-ray of the elbow showed joint effusion. He received 1 dose of cefazolin then was discharged to home with
prescription for cephalexin 500 mg p.o. 4 times daily x 6 days. 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 Later in the evening he developed fever up to 102 with shaking chills. He therefore presented back to the ER. He is currently on Cefazolin.
He reports that the right arm has improved compared to yesterday. Pain is less. Swelling improved. Not as hot as before. He can now move his elbow. Denies history of trauma.
Past History
Additional Past Medical History:
pAfib
RA on MTX, plaquenil
HTN
NATHEN on CPAP
BMI 46
Cholecystectomy
Appendectomy
Right Thumb Bone Resection / Graft
Allergy History:
theophylline Allergy (Verified 06/03/24 20:22)
Anaphylaxis
Medications Reviewed: Yes
Current Antibiotics:
Cefazolin
Social History
Tobacco: Former Smoker
Alcohol: None
Drug: None
Personal:
Living: With Family
Family History
Family History: Not Pertinent
Review of Systems
Review of Systems
General: Fever and Chills; Negative Change in Appetite
HEENT: Negative Sinus Problems or Headache
Cardiovascular: Negative Chest Pain or Dyspnea
Respiratory: Negative Dyspnea or Cough
Gasteroenterology: Negative Nausea, Vomiting or Diarrhea
Genital / Urological: Negative Dysuria or Flank Pain
Endocrine: Negative Weakness
Skin / Hair / Nails: Rash
All systems: All other systems were reviewed and were negative
Vital Signs
Temp Pulse Resp BP Pulse Ox
98.1 F 67 18 160/80 98
06/04/24 13:33 06/04/24 13:33 06/04/24 13:33 06/04/24 13:33 06/04/24 13:33
Physical Exam
Physical Exam
Constitutional: No Acute Distress and Obese
Eyes: No Conjunctival Hemorrhage
Cardiovascular: Regular Rate and S1/S2
Pulmonary: Clear
Gastrointestinal: Soft, Non Tender, Non Distended and Normal Bowel Sounds
Extremities: Edema (Right proximal forearm to distal arm + edema, no erythema, + warmth. Olecranon unremarkable. )
Lab / Diagnostic Study Results
06/04/24 06:20
06/04/24 06:20
Abs Immat Gran (auto) 0.1 10^3/uL (0-0.05) H 06/03/24 20:33
Absolute Neuts (auto) 5.5 10^3/uL (1.4-6.5) 06/03/24 20:33
Absolute Lymphs (auto) 1.0 10^3/uL (1.2-3.4) L 06/03/24 20:33
Absolute Monos (auto) 0.7 10^3/uL (0.1-0.6) H 06/03/24 20:33
Absolute Basos (auto) 0.1 10^3/uL (0-0.2) 06/03/24 20:33
Immature Gran % 1.2 % (0-0.5) H 06/03/24 20:33
Neutrophils % 72.8 % (42.2-75.2) 06/03/24 20:33
Lymphocytes % 13.8 % (20.5-51.1) L 06/03/24 20:33
Monocytes % 9.8 % (1.7-9.3) H 06/03/24 20:33
Eosinophils % 1.7 % (0-6) 06/03/24 20:33
Basophils % 0.7 % (0-2) 06/03/24 20:33
ESR 8 mm/hour (0-20) 06/03/24 20:33
PT 33.2 Sec (11.4-14.6) H 06/04/24 06:20
INR 3.22 06/04/24 06:20
C-Reactive Protein 57.30 mg/L (0.0-10.00) H 06/03/24 20:33
Microbiology Results
Micro:
06/04/24 01:55 Blood Culture - Pending
Blood/Venous
06/04/24 00:30 Blood Culture - Pending
Blood/Venous
05/17/[address]: Probable small to moderate joint effusion, which is nonspecific. Joint infection cannot be excluded by imaging.No evidence for bony destruction with no findings to suggest osteomyelitis.
06/04/24 R elbow xray: Evidence for right elbow joint effusion.
Assessment / Plan
# Recurrent right UE cellulitis - recurred 2 days post cephalexin 500mg po qid.
- blood cx's neg to date.
- Cellulitis improving on IV cefazolin.
-Recommend dc home on high dose cephalexin 1000mg po q6h (adjusted for morbid obesity) x 10 more days.
-Elevate extremity.
-Can apply eva-wrap compression.
- Has follow-up with Ortho
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
pAfib
RA on MTX, plaquenil
HTN
NATHEN on CPAP
BMI 46
Cholecystectomy
Appendectomy
Right Thumb Bone Resection / Graft
Care Review
Plan reviewed with: Physician (Dr. Santana)
--- NOTE | 2024-06-04 15:20 | W.DCSUMMARY ---
Discharge Summary
Discharge Data
Date of Admission: 06/04/24
Date of Discharge: 06/04/24
-
Pending Results: No
Hospital Course
Principal Diagnosis:
Recurrent Right Elbow Cellulitis.
Chronic Diagnoses:�
Paroxysmal Atrial Fibrillation, Stable, on Coumadin for stroke risk reduction.
Benign Hypertension, Stable.
Rheumatoid Arthritis, Stable, on Plaquenil and methotrexate prior to admission.
NATHEN on CPAP, Stable.
Morbid obesity due to excess calories, BMI 46
Consultations:�
Infectious disease
Orthopedic
Procedures:�
None
Clinical course:�
This is a 68-year-old male with past medical history as stated above, who presented with recurrent right elbow pain and redness.
Of note, he was recently treated with IV Ancef followed by oral Keflex for R elbow soft tissue cellulitis.
Problem 1:
Recurrent Right Elbow Cellulitis.
No surgical intervention is needed per orthopedic.
He received IV Ancef in the hospital with improvement in his symptoms.
Patient was seen by ID, and was recommended high dose oral Keflex 1000mg po q6h (adjusted for morbid obesity) x 10 more days.
He was cleared for discharge per ID and Ortho.
As for the rest of his medical problems, they were stable during his hospital stay.
Discharge Plan
-
Patient Disposition: Home (Routine Discharge)
Discharge Diagnosis/Procedures: Recurrent right elbow cellulitis
Condition: Fair
Activity: As tolerated
Driving Restrictions: As prior to admission
Activity Restrictions/Additional Instructions:
Follow up with ortho outpatient.
Referrals:
Dionte Marcos MD [Family Provider] - in less than 1 week
Additional Discharge Medication Instructions: Continue high dose cephalexin 1000mg po q6h x 10 more days.
Hold coumadin for 2 days
Prescriptions:
New
cephalexin 500 mg capsule
1,000 mg PO Q6H 10 Days Qty: 80 0RF
Continued
losartan 100 mg Tablet
100 mg PO DAILY Qty: 0 0RF
diltiazem HCl [Cardizem LA] 180 mg tablet extended release 24 hr
180 mg PO DAILY Qty: 30 0RF
acetaminophen [Tylenol Extra Strength] 500 mg Tablet
1,000 mg PO Q6HPRN PRN (Reason: mild pain)
methotrexate sodium 2.5 mg Tablet
7.5 mg PO TH
warfarin 5 mg Tablet
See Rx Instructions .ROUTE .COMPLEX
Rx Instructions:
10 mg orally Sun, Mon, Wed, Fri, Sat
5 mg Orally Fri, Fri
folic acid 1 mg Tablet
1 mg PO DAILY
hydroxychloroquine 200 mg Tablet
200 mg PO BID
Discharge Orders:
Discharge Patient (As Directed); Ordered 06/04/24
Ordered By: Meghana Santana
Discharge Date and Time
Print Language: ITALIAN
--- NOTE | 2024-06-04 16:00 | CM ---
CM reviewed medical records. No needs noted. Patient medically ready for discharge.
PLAN: home no needs.
== END 2024-06-04 16:30 | disposition home or self-care (01) ==
LOC: ED 03:48
PROVIDERS: ADMITTING PHYSICIAN Hospitalist; ATTENDING PHYSICIAN Internal Medicine; CONSULT PHYSICIAN Internal Medicine Infectious Disease; EMERGENCY PHYSICIAN Emergency Medicine; FAMILY PHYSICIAN Family Medicine
DX: L03.113 Cellulitis of right upper limb (principal); R50.9 Fever, unspecified; M25.521 Pain in right elbow; M06.9 Rheumatoid arthritis, unspecified; I10 Essential (primary) hypertension; E24.9 Cushing's syndrome, unspecified; G47.33 Obstructive sleep apnea (adult) (pediatric); I48.0 Paroxysmal atrial fibrillation; E66.01 Morbid (severe) obesity due to excess calories; Z68.42 Body mass index [BMI] 45.0-49.9, adult; Z90.49 Acquired absence of other specified parts of digestive tract; M25.421 Effusion, right elbow; Z79.631 Long term (current) use of antimetabolite agent; Z79.01 Long term (current) use of anticoagulants; Z87.891 Personal history of nicotine dependence; Z88.8 Allergy status to other drugs, medicaments and biological substances
CPT/HCPCS: 73070; 80048; 80053; 83605; 84550; 85025; 85027; 85610; 85652; 86140; 87040; 96374; 96375; 99284; 99285; G0378

== ENCOUNTER 2024-09-09 02:00 | Inpatient (IN) | payer MEDICARE, OTHER, SELFPAY ==
[2024-09-08 20:53] VITALS: BP 138/110
[2024-09-08 21:25] LABS: % Basophils 0.5 % (0-2); % Eosinophils 1.3 % (0-6); % Immature Granulocytes 0.8 % (0-0.5); % Lymphocytes 14.4 % (20.5-51.1); % Monocytes 9.9 % (1.7-9.3); % Neutrophils 73.1 % (42.2-75.2); Absolute Eosinophils 0.1 10^3/uL (0-0.7); Absolute Immature Granulocytes 0.1 10^3/uL (0-0.05); Absolute Lymphocytes 1.1 10^3/uL (1.2-3.4); Absolute Monocytes 0.8 10^3/uL (0.1-0.6); Absolute Neutrophils 5.5 10^3/uL (1.4-6.5); Hematocrit 40.7 % (39.0-52.0); Hemoglobin 13.8 g/dL (13.0-18.0); Mean Corp Hgb Conc. 33.9 g/dL (33.0-37.0); Mean Corpuscular Hgb 29.3 pg (27.0-31.0); Mean Corpuscular Volume 86.4 fL (80.0-94.0); Mean Platelet Volume 10.1 fL (7.4-10.4); Nucleated Red Blood Cells % 0 % (-); Platelet Count 138 10^3/uL (130-400); Red Blood Cell Count 4.71 10^6/uL (4.70-6.10); Red Cell Dist. Width 15.7 % (11.5-14.5); White Blood Cell Count 7.6 10^3/uL (4.8-10.8)
[2024-09-08 21:32] VITALS: BP 121/85
[2024-09-08 21:35] VITALS: BMI 45.6
[2024-09-08 21:37] LABS: Lactic Acid 0.9 mmol/L (0.7-2.0)
[2024-09-08 21:48] LABS: ALT (SGPT) 18 U/L (0-50); AST (SGOT) 19 U/L (17-59); Albumin 4.4 g/dl (3.5-5.0); Alkaline Phosphatase 52 U/L (38-126); Blood Urea Nitrogen 12 mg/dl (9-20); Calcium 9.5 mg/dl (8.4-10.2); Carbon Dioxide 22 mmol/L (22-30); Chloride 107 mmol/L (98-107); Estimated Creatinine Clearance 112 ml/min; Glucose 114 mg/dl (70-99); Potassium 3.8 mmol/L (3.5-5.1); Sodium 137 mmol/L (135-145); Total Bilirubin 1.8 mg/dl (0.2-1.3); eGFR > 60.00
[2024-09-08 22:00] VITALS: BP 118/82
--- NOTE | 2024-09-08 23:15 | ED.GENMED ---
History of Present Illness
General
Chief Complaint: Skin Problem
Source: patient
Exam Limitations: none
Time Seen by Provider: 09/08/24 21:55
Nursing documentation reviewed up to this point in time: agreed with
History of Present Illness
History of Present Illness:
The patient is a 68-year-old male past medical history of rheumatoid arthritis currently on methotrexate also A-fib currently on Coumadin who presents with redness of the leg, fevers and discomfort to the right lower extremity. The redness was first
noticed today, and the patient reports a prior instance of cellulitis, with current symptoms feeling similar. He denies any associated chest pain or shortness of breath. The patients heart rate is noted to be between 100 and 110 beats per minute,
and he has a history of atrial fibrillation.
Past History
Past History
ED Past Medical History: Arrthythmia (RA), HTN and Other (adrenal tumor, Paige's disease, NATHEN, morbid obestity)
ED Past Surgical History: Other (adrenal tumor resection)
Social History
Tobacco: Non-smoker
Alcohol: None
Drug: None
Personal:
Living: with family
Employment: Employed
Family History
Family History: Other (Noncontributory)
Review of Systems
Review of Systems
Allergies reviewed?: Yes
All Other Systems: ROS reviewed and negative except as documented in HPI and ROS
Phy Exam
Physical Exam
Physical Exam:
GENERAL: Alert , in no apparent distress
EYE: pupils equal and reactive
NECK: Supple, no significant adenopathy.
ENT: o/p clr, mmm.
CARDIAC: Regular rate and rhythm .
LUNGS: Clear breath sounds bilaterally, no acute respiratory distress, no wheezes/rales/rhonchi
ABDOMEN: Soft, without focal tenderness, no r/g, no cvat
NEUROLOGICAL: Alert and oriented, no focal neuro deficits
SKIN: Redness swelling warmth and tenderness palpation throughout the right lower extremity distal to the right knee. Does extend to the ankle and throughout the blanco circumferentially, no fluctuance or induration warm and dry, skin intact.
MUSCULOSKELETAL: No edema, well perfused.
PSYCH: Normal and appropriate interaction.
Sepsis
Sepsis Screening
Sepsis Assessment: Sepsis Ruled Out
Sepsis Screen
Sepsis Screen: Sepsis Ruled Out
Date: 09/09/24
Time: 23:44
Course
Orders/Labs/Results
Orders:
Orders
09/08/24 20:58
Electrocardiogram (*1) Urgent
Reason for Study: Fatigue / Weakness
EKG- Treatment ONCE
09/08/24 21:08
Complete Blood Count/With Diff Urgent
Comprehensive Metabolic Panel Urgent
Lactic Acid Urgent
09/08/24 23:14
PT/INR [Prothrombin Time] Urgent
Venous Doppler Lwr Ext Rt [US Periph Venous LOWER Ext RT] Urgent
Comment:
Reason For Exam: right leg swelling
09/08/24 23:15
CeFAZolin 2 GRAM [Ancef] 2 grams in 10 ml IV NOW
09/09/24 00:14
Blood Culture Q20M
LORI Source: Blood/Venous
Specimen Description:
Comment: Urgent from separate sites. If patient screens positive for possible sepsis
09/09/24 00:20
Blood Culture Q20M
LORI Source: Blood/Venous
Specimen Description:
Comment: Urgent from separate sites. If patient screens positive for possible sepsis
09/09/24 00:24
0.9% Sodium Chloride 500 ml [Nss] 500 ml IV BOLUS
09/09/24 01:08
Admit/Transfer Patient As Directed
Co-Sign Provider:
Level of Care: Inpatient admission
Assign to:: Medical/Surgical
Physician / Group: Danyel
Diagnosis: cellulitis
Reason for Hospitalization: fever with cellulitis
Expected length of stay greater than two midnights?: Yes
ELOS- Estimated Length of Stay in days: 2
I certify the patient meets the requirements for IP care: Yes
09/09/24 01:09
PRN Pain Medication Management As Directed
May give lesser potent ordered pain med per pt: Yes
preference::
Protocol:: Medication orders for pain may be administered in a
manner that supports deferring to patient preference
when the pt is:
- Requesting an ordered lesser potent pain medication.
Least to most potent pain medications are defined
as: acetaminophen < NSAID < tramadol < opioids
(morphine, oxycodone, hydromorphone).
- Requesting a lesser dose of the same medication IF
ORDERED.
- Requesting a less intrusive route of administration
if both routes are prescribed by the provider (PO <
IV).
09/09/24 01:11
Code Status As Directed
Resuscitation Status: Full Code
09/09/24 01:15
Warfarin [Coumadin] 10 mg PO NOW STA
09/09/24 02:15
Acetaminophen [Tylenol] 650 mg PO Q4HPRN PRN
Bisacodyl [Dulcolax] 10 mg RECTAL [id number] PRN
Docusate W/Senna [Senokot-S] 1 tablet PO BIDPRN PRN
Ondansetron Injectable [Zofran] 4 mg IV Q6HPRN PRN
Polyethylene Glycol Powder [Miralax] 17 grams PO DAILYPRN PRN
09/09/24 02:15
VTE Contraindication Routine
VTE Mechanical Device Contraindication: Medical Contraindication
Pharmocologic Contraindication: Medical Contraindication
Activity As Directed
Activity Level: With Assistance
Vital Signs As Directed
Frequency: Per unit guidelines
09/09/24 02:31
MRSA Screen Routine
LORI Source: Nose
Specimen Description:
09/09/24 Breakfast
Cholesterol Lowering
At Your Request: Full Participation
Cholesterol Lowering: Sodium, 2 Gram
CeFAZolin 2 GRAM [Ancef] 2 grams in 10 ml IV Q8H
09/09/24 06:17
Basic Metabolic Panel IN AM
Complete Blood Count/No Diff IN AM
Prothrombin Time IN AM
09/09/24 08:00
Diltiazem Extended Release [Cardizem Cd] 180 mg PO DAILY
FOLic ACID [Folvite] 1 mg PO DAILY
Hydroxychloroquine [Plaquenil] 200 mg PO BID
Losartan [Cozaar] 100 mg PO DAILY
Methotrexate Sodium [Methotrexate] 7.5 mg PO TH
09/09/24 18:00
Warfarin [Coumadin] 10 mg PO MoWeThSa@1800
09/09/24 22:00
Cpap [RESP] HS
Patient to use own unit?: No
Set Pressure (cm H2O): 8
09/10/24 18:00
Warfarin [Coumadin] 5 mg PO SuTuFr@1800
Abnormal Lab Results
09/08/24 09/09/24
21:08 00:14
RDW 15.7 H %
(11.5-14.5)
Abs Immat Gran (auto) 0.1 H 10^3/uL
(0-0.05)
Absolute Lymphs (auto) 1.1 L 10^3/uL
(1.2-3.4)
Absolute Monos (auto) 0.8 H 10^3/uL
(0.1-0.6)
Immature Gran % 0.8 H %
(0-0.5)
Lymphocytes % 14.4 L %
(20.5-51.1)
Monocytes % 9.9 H %
(1.7-9.3)
PT 20.8 H Sec
(11.4-14.6)
Glucose 114 H mg/dl
(70-99)
Total Bilirubin 1.8 H mg/dl
(0.2-1.3)
09/08/24 21:08
09/08/24 21:08
Vital Signs
Initial and Last Documented VS:
Initial Vital Signs
Temp Pulse Resp BP Pulse Ox
99.7 F 113 18 138/110 98
09/08/24 20:53 09/08/24 20:53 09/08/24 20:53 09/08/24 20:53 09/08/24 20:53
Last Documented Vital Signs
Temp Pulse Resp BP Pulse Ox
98.4 F 67 18 134/75 96
09/09/24 23:26 09/09/24 23:26 09/09/24 23:26 09/09/24 23:26 09/09/24 23:26
MDM/Problems Addressed
MDM/Problems Addressed:
68-year-old male presenting to the emergency department with red swollen discomfort to the right lower extremity. Here is mildly tachycardic low-grade temperature. Does endorse a temperature at home. Redness and swelling throughout the right
lower extremity distal to the right knee. Findings consistent with potential cellulitis. Started on Ancef.
The patient will be started on intravenous antibiotics. An ultrasound of the leg will be ordered to evaluate for potential deep venous thrombosis. Begin intravenous antibiotics immediately, with further evaluation to follow based on ultrasound
findings.
Ultrasound without signs of DVT. Concerning the patient's immunosuppressive status and significant area of cellulitis plan to treat with IV antibiotics and admit for further monitoring.
*Pulse Oximetry
Patient hypoxic: no (91)
*Critical Care Note
Total Time (30-74mins, 75-104mins- exclusive of procedures): Not Applicable
ED Attending Note
-
Portions of this chart may have been created with voice recognition software.� Occasional wrong word or��sound alike� substitutions may have occurred due to the inherent limitations of voice recognition software.
Discharge Plan
Departure
Patient Disposition: Admit
Date of Disposition: 09/09/24
Time of Disposition: 00:38
Admit to: Med/Surg
Admit to doctor: Danyel
Presentation/result/management discussed w/ accepting MD/DO: Hospitalist
Patient with high blood pressure during this ER visit?: No
Condition: Good
Covid-19: Not Applicable
Discharge Problem:
Cellulitis of right leg
Interventions
Interventions:
*Risk Screen - Suicide Last Done: 09/09/24 02:41
*General Assessment Last Done: 09/08/24 21:35
*Neglect/Abuse Screening Last Done: 09/08/24 20:56
*ED- Fall Risk Assessment Last Done: 09/08/24 21:35
*ED COVID-19 Vaccine History Last Done: 09/09/24 02:41
*Nursing Disposition Last Done: 09/09/24 02:12
ED-Skin Assessment Last Done: 09/08/24 21:36
Discharge Date and Time
Discharge Date/Time: 09/09/24 02:13
[2024-09-09] VITALS (7 sets, daily range): BP systolic 116–148; BP diastolic 66–100; BMI 44.5
[2024-09-09] MEDS: NSS 500 IV (00:26)
[2024-09-09] MEDS: ANCEF 10 IV ×4 (00:27→20:34)
--- NOTE | 2024-09-09 00:53 | HPS.HSE ---
Family Physician
-
Family Physician: Dionte Marcos
Chief Complaint
-
Right lower extremity swelling and tenderness
History of Present Illness
This is a 68-year-old with past medical history significant for paroxysmal atrial fibrillation on Cardizem and anticoagulation with Coumadin, hypertension, rheumatoid arthritis, history of Paige's status post adrenalectomy, NATHEN on CPAP presenting
to the emergency department with 1 day of right lower extremity swelling and tenderness.
Patient reported that he only noticed it the evening prior to coming to the emergency department. Denies any injuries. He does have pain and tenderness to palpation. Also reported mild calf tenderness to palpation. He said he had a fever up to
100.5 at home. He took Tylenol and by the time he arrived in the emergency department his temperature was 99.5. He denies any nausea or vomiting. He denies having any cough. He denies any shortness of breath. He does feels exhausted.
In the emergency department he had a temp of 99.7, blood pressure was 118/80 with a pulse rate of 104 atrial fibrillation. Was satting 92% on room air. ECG shows atrial fibrillation at rate of 103. CBC was normal. Electrolytes BUN/creatinine
were all in normal range. Right lower extremity ultrasound is pending.
Medical History
Past Medical History
Past Medical History: Reports Other
Additional Past Medical History:
Rheumatoid Arthritis
Paroxysmal Atrial Fibrillation
Bone Cancer of Thumb
Hypertension
NATHEN on CPAP
Obesity
Past Surgical History: Reports Other
Additional Past Surgical History:
Cholecystectomy
Appendectomy
Right Thumb Bone Resection / Graft
Social History
Tobacco: Former Smoker (Quit smoking in .)
Alcohol: None
Drug: None
Personal:
Living: With Family
Employment: Retired
Family History
Family History: Not pertinent
Allergies / Home Medications
Allergies reflects when Allergies were last updated in [employer].
Home Medications with original date entered in [employer]
Allergy/Medication List:
Allergies
Allergy/AdvReac Type Severity Reaction Status Date / Time
theophylline Allergy Anaphylaxis Verified 06/03/24 20:22
Home Medications
losartan 100 mg tablet 100 mg PO DAILY Blood pressure #0 tabs 09/15/22
diltiazem HCl 180 mg tablet,extended release 24 hr (Cardizem LA) 180 mg PO DAILY #30 tabs 11/15/22
acetaminophen 500 mg tablet (Tylenol Extra Strength) 1,000 mg PO Q6HPRN PRN mild pain 05/17/24
folic acid 1 mg tablet 1 mg PO DAILY 05/17/24
hydroxychloroquine 200 mg tablet 200 mg PO BID 05/17/24
methotrexate sodium 2.5 mg tablet 7.5 mg PO TH 05/17/24
warfarin 5 mg tablet See Rx Instructions .Route .COMPLEX 05/17/24
Review of Systems
-
Constitutional: Reports No Symptoms
EENT: Reports No Symptoms
Respiratory: Reports No Symptoms
Cardiac: Reports No Symptoms
Abdomen/GI: Reports No Symptoms
: Reports No Symptoms
Musculoskeletal: Reports No Symptoms
Skin: Reports Other (Right lower extremity swelling redness and tenderness)
Neurological: Reports No Symptoms
Endocrine: Reports No Symptoms
Hematologic/Lymphatic: Reports No Symptoms
Psych: Reports No Symptoms
Physical Exam
Vital Signs
Vital Signs
Temp Pulse Resp BP Pulse Ox
99.7 F 104 19 118/82 91
09/08/24 20:53 09/08/24 22:45 09/08/24 22:45 09/08/24 22:00 09/08/24 22:15
Physical Exam
General: Well Developed, Well Nourished and Pain
HEENT: NormoCephalic, Anicteric, Moist mucous membranes and Atraumatic
Respiratory: Clear
Cardiac: S1/S2 and Regular Rhythm
Breast: Deferred by me
GI: Soft, Non Tender and Normal Bowel Sounds
Rectal: Deferred by Provider
Genito-urinary: Deferred by me
Musculoskeletal: No Clubbing, No Cyanosis, Edema, Left Lower Extremity (Trace), Edema, Right Lower Extremity (Trace) and Other (Erythema surrounding the elbow on the right upper extremity. lacy coloration. Mild edema. Mild tenderness to palpation
of the epicondyles. Range of motion is reduced on flexion and extension.)
Skin: Warm and Rash (Right lower extremity erythema, mild induration with mild tenderness to palpation.)
Neuro: AO x 3 and Nonfocal/grossly intact
Hematologic/Lymphatic: No Lymphadenopathy
Psych: Calm
Laboratory Results
-
09/08/24 21:08
09/08/24 21:08
Laboratory Results
Lactic Acid 0.9 mmol/L (0.7-2.0) 09/08/24 21:08
Total Bilirubin 1.8 mg/dl (0.2-1.3) H 09/08/24 21:08
AST 19 U/L (17-59) 09/08/24 21:08
ALT 18 U/L (0-50) 09/08/24 21:08
Alkaline Phosphatase 52 U/L (38-126) 09/08/24 21:08
Data Reviewed
-
Ultrasound: Report Reviewed by me
Medical Tests (Nuc Med, Echo, EKG etc): Image Personally Visualized and interpreted
Lab Data: Labs Reviewed by me
Old Records: Reviewed
Impression/Plan
-
IMPRESSION:
68-year-old male with history of rheumatoid arthritis, hypertension, NATHEN on CPAP, paroxysmal atrial fibrillation on anticoagulation who presents right lower extremity cellulitis and fever to 100.5 at home. His labs are completely reassuring.
Ultrasound is negative for DVT.
PLAN:
1. Cellulitis -fever, HD stable, mild tachy with afib to 110. Lactate negative
- admit to med/surg
- blood cultures sent
- mrsa swab
- continue IV cefazolin
- pain control
2. pAFIB
- continue diltiazem 180 daily
- coumadin 10/ alternating
- inr in am
3. HTN
- continue losartan
4. RA
- continue Plaquenil and methotrexate per home regimen
5. NATHEN
- CPAP 8 HS
DVT PPX - on coumadin
Code status - Full Code
[2024-09-09 01:47] LABS: INR 1.73; PT 20.8 Sec (11.4-14.6)
[2024-09-09] MEDS: COUMADIN 10 MG PO ×2 (01:59→17:26)
[2024-09-09 06:57] LABS: INR 1.68; PT 20.3 Sec (11.4-14.6)
[2024-09-09 07:13] LABS: Blood Urea Nitrogen 11 mg/dl (9-20); Calcium 9.4 mg/dl (8.4-10.2); Carbon Dioxide 24 mmol/L (22-30); Chloride 107 mmol/L (98-107); Estimated Creatinine Clearance 111 ml/min; Glucose 107 mg/dl (70-99); Potassium 4.2 mmol/L (3.5-5.1); Sodium 140 mmol/L (135-145); eGFR > 60.00
[2024-09-09 07:45] LABS: Hematocrit 41.4 % (39.0-52.0); Hemoglobin 13.6 g/dL (13.0-18.0); Mean Corp Hgb Conc. 32.9 g/dL (33.0-37.0); Mean Corpuscular Hgb 28.9 pg (27.0-31.0); Mean Corpuscular Volume 88.1 fL (80.0-94.0); Mean Platelet Volume 10.2 fL (7.4-10.4); Platelet Count 146 10^3/uL (130-400); Red Cell Dist. Width 15.9 % (11.5-14.5); White Blood Cell Count 7.8 10^3/uL (4.8-10.8)
[2024-09-09] MEDS: FOLVITE 1 MG PO (07:49)
[2024-09-09] MEDS: PLAQUENIL 200 MG PO ×2 (07:49→20:33)
[2024-09-09] MEDS: CARDIZEM CD 180 MG PO (07:52)
[2024-09-09] MEDS: COZAAR 100 MG PO (07:52)
[2024-09-09] MEDS: METHOTREXATE 7.5 MG PO (07:52)
--- NOTE | 2024-09-09 09:25 | CM ---
Patient seen at bedside
IA completed
Dx: cellulitis
Lives with and son in 2 story home, 1 step to enter, bedroom on 1st floor, full bath on 2nd floor 10 steps
PLOF: Independent
DME: CPAP, PT/INR machine
Has had [facility] in past, has had outpatient PT in past for his neck/shoulder
Denies insecuritie
PCP: Dionte Marcos
Pharmacy: [facility], [id number], [place]
Plan: home when medically stable, no needs anticipated
--- NOTE | 2024-09-09 10:34 | W.PN.HOSP.TC ---
Today's Communication/Plan
-
Continue antibiotics
Increase warfarin
Compression therapy
Assessment / Plan
Assessment / Plan
Gen-AAOx3, NAD, morbid obesity
HEENT-NC, AT, anicteric, clear oral mm
Neck-supple
CV-reg, no M, +S1/S2
Lungs-clear B/L
Abd-soft, NT, ND
Ext-bilateral lower extremity edema
Musculoskeletal-no cyanosis, clubbing
Skin-warm and dry, bilateral lower extremity hyperpigmentation, right lower extremity erythema below the knee
Neuro-grossly non-focal
Psych-calm, cooperative
Acute right lower extremity cellulitis -with risk factors of obesity and venous stasis dermatitis.
Continue IV cefazolin.
Bilateral lower extremity venous stasis dermatitis -recommend to start compression therapy with Nikolas wraps. Continue on discharge. Patient was prescribed compression stockings at home, states he does not use routinely.
Paroxysmal atrial fibrillation -INR subtherapeutic on warfarin. Uses warfarin 10 mg 4 days a week, 5 mg 3 days a week. Has a home INR monitor. INR reportedly was 2.1 a week ago. Denies any dietary changes or changes in meds. Will increase dose
to 10 mg 4 days a week, 6 mg 3 days a week. Pantry Attendant is Dr. Antonio Epps.
Rheumatoid arthritis
Essential hypertension
NATHEN -on CPAP.
Bone cancer of thumb
Morbid obesity due to excess calories
Full code
Anticipated Discharge: 24 - 48 hours
Subjective/Interval History
-
Date of Service: September 09, 2024
Patient seen and examined. No complaints currently.
Objective Data
-
Labs:
Laboratory Results
09/09/24 09/09/24
00:14 06:17
WBC 7.8
Hgb 13.6
Hct 41.4
Plt Count 146
PT 20.8 H 20.3 H
INR 1.73 1.68
Sodium 140
Potassium 4.2
Chloride 107
Carbon Dioxide 24
BUN 11
Creatinine 1.0
Glucose 107 H
Calcium 9.4
Vital Signs:
Vital Signs
Temp Pulse Resp BP Pulse Ox
98.3 F 80 16 125/76 94
09/09/24 07:00 09/09/24 07:52 09/09/24 07:00 09/09/24 07:52 09/09/24 07:00
I&O
09/08/24 09/09/24 09/10/24
06:59 06:59 06:59
Intake Total 480 / 480
Balance 480 / 480
Review of Systems
-
History Source: Patient
All other systems: Reviewed and negative
--- NOTE | 2024-09-09 11:01 | PTCARENOTE ---
Nikolas wrap initiated to BLE per standing order.
[2024-09-10] VITALS: PULSE 84
[2024-09-10 03:30] VITALS: PULSE 88
[2024-09-10] MEDS: ANCEF 10 IV (05:18)
[2024-09-10 07:57] VITALS: BP 115/69
[2024-09-10] MEDS: CARDIZEM CD 180 MG PO (08:02)
[2024-09-10] MEDS: COZAAR 100 MG PO (08:02)
[2024-09-10] MEDS: PLAQUENIL 200 MG PO (08:02)
[2024-09-10] MEDS: FOLVITE 1 MG PO (08:02)
[2024-09-10 09:18] VITALS: BMI 44.5
--- NOTE | 2024-09-10 10:55 | W.PN.HOSP.TC ---
Today's Communication/Plan
-
Check INR
PT
Discharge
Assessment / Plan
Assessment / Plan
Gen-AAOx3, NAD, morbid obesity
HEENT-NC, AT, anicteric, clear oral mm
Neck-supple
CV-reg, no M, +S1/S2
Lungs-clear B/L
Abd-soft, NT, ND
Ext-bilateral lower extremity edema
Musculoskeletal-no cyanosis, clubbing
Skin-warm and dry, bilateral lower extremity hyperpigmentation, right lower extremity erythema below the knee improved
Neuro-grossly non-focal
Psych-calm, cooperative
Acute right lower extremity cellulitis -with risk factors of obesity and venous stasis dermatitis. Cellulitis improving on IV antibiotics. Can transition to Keflex on discharge. Weight loss encouraged. Managing his venous stasis dermatitis
encouraged.
Bilateral lower extremity venous stasis dermatitis -continue compression therapy with Nikolas wraps. Continue on discharge. Patient was prescribed compression stockings at home, states he does not use routinely.
Paroxysmal atrial fibrillation -INR subtherapeutic on warfarin. Uses warfarin 10 mg 4 days a week, 5 mg 3 days a week. Has a home INR monitor. INR reportedly was 2.1 a week ago. Denies any dietary changes or changes in meds. Will discharge on
higher dose of warfarin, monitor INR at home and follow-up with cardiology.
INR for today pending.
Rheumatoid arthritis
Essential hypertension -stable.
NATHEN -on CPAP.
Bone cancer of thumb
Morbid obesity due to excess calories
Full code
Dispo -medically stable for discharge today. Await INR, PT eval. Outpatient follow-up.
31 minutes spent in discharge process.
Anticipated Discharge: Today
Subjective/Interval History
-
Date of Service: September 10, 2024
Patient seen and examined. Feeling better. No complaints.
Objective Data
-
Labs:
Laboratory Results
09/10/24
10:46
PT Pending
INR Pending
Vital Signs:
Vital Signs
Temp Pulse Resp BP Pulse Ox
97.9 F 67 18 115/69 100
09/10/24 07:57 09/10/24 08:02 09/10/24 07:57 09/10/24 08:02 09/10/24 08:01
I&O
09/09/24 09/10/24 09/11/24
06:59 06:59 06:59
Intake Total 480 / 480 780 / 780
Balance 480 / 480 780 / 780
Review of Systems
-
History Source: Patient
All other systems: Reviewed and negative
--- NOTE | 2024-09-10 11:05 | W.DS.TRANS ---
DC Summary - [employer] Machine [employer]
-
Discharge Instructions:
Discharge Diagnosis/Procedures Right leg cellulitis, venous stasis dermatitis
Diet Low Cholesterol,Low Fat,2 Gram Sodium
Activity As tolerated
Driving Restrictions As prior to admission
Bathing Restrictions None
Blood Work Monitor INR at home with goal of 2.0-3.0
Instructions:
Stand-Alone Forms:
Changes to Home Medications: Yes
Discharge Medications:
DC Medications w/original date entered in [facility]
losartan 100 mg tablet 100 mg PO DAILY Blood pressure #0 tabs 09/15/22
diltiazem HCl 180 mg tablet,extended release 24 hr (Cardizem LA) 180 mg PO DAILY #30 tabs 11/15/22
acetaminophen 500 mg tablet (Tylenol Extra Strength) 1,000 mg PO Q6HPRN PRN mild pain 05/17/24
folic acid 1 mg tablet 1 mg PO DAILY 05/17/24
hydroxychloroquine 200 mg tablet 200 mg PO BID 05/17/24
methotrexate sodium 2.5 mg tablet 7.5 mg PO TH 05/17/24
cephalexin 500 mg tablet 500 mg PO QID #28 tabs 09/10/24
warfarin 10 mg tablet (Jantoven) 10 mg PO MoWeThSa@1800 #0 tabs 09/10/24
warfarin 6 mg tablet 6 mg PO SUTUFR #14 tabs 09/10/24
Home Medication Changes
Warfarin dose increased
Pending Results: No
[2024-09-10 11:52] LABS: INR 1.89; PT 21.9 Sec (11.4-14.6)
--- NOTE | 2024-09-10 12:59 | CM ---
Patient stable for d/c today
Per patient, spouse will transport home. IMM verbally reviewed, copy provided, copy on chart
No CM needs identified at this time
Plan: Home, no needs
[2024-09-10 13:08] VITALS: BP 135/89
== END 2024-09-10 14:01 | disposition home or self-care (01) | DRG 603 ==
LOC: 4 EAST ACU 02:00
PROVIDERS: Emergency Medicine; Physician Assistant; ADMITTING PHYSICIAN Internal Medicine; ATTENDING PHYSICIAN Hospitalist; EMERGENCY PHYSICIAN Emergency Medicine; FAMILY PHYSICIAN Family Medicine
PROC: 5A09357 Assistance with Respiratory Ventilation, Less than 24 Consecutive Hours, Continuous Positive Airway Pressure (ICD-10-PCS; 2024-09-09)
DX: L03.115 Cellulitis of right lower limb (principal); Z68.41 Body mass index [BMI] 40.0-44.9, adult; E24.9 Cushing's syndrome, unspecified; I87.2 Venous insufficiency (chronic) (peripheral); I48.0 Paroxysmal atrial fibrillation; M06.9 Rheumatoid arthritis, unspecified; E66.01 Morbid (severe) obesity due to excess calories; G47.33 Obstructive sleep apnea (adult) (pediatric); I10 Essential (primary) hypertension; Z79.01 Long term (current) use of anticoagulants; Z87.891 Personal history of nicotine dependence
CPT/HCPCS: 80048; 80053; 83605; 85025; 85027; 85610; 87040; 87070; 93005; 93971; 94660; 96361; 96374; 97161; 99285; J8610

== ENCOUNTER 2025-02-26 05:30 | Inpatient (IN) | payer MEDICARE, OTHER, SELFPAY ==
[2025-02-25 20:17] VITALS: BP 210/132
[2025-02-25 21:18] VITALS: BP 153/84
--- NOTE | 2025-02-25 22:32 | ED.GENMED ---
History of Present Illness
General
Chief Complaint: Bowel Problem
Source: patient
Exam Limitations: none
Time Seen by Provider: 02/25/25 22:12
Nursing documentation reviewed up to this point in time: agreed with
History of Present Illness
History of Present Illness:
Patient with history of BPH, presents ED secondary to 1 week history of difficulty with bowel movement, with passage of small hard stools, associated with 24-hour history of difficulty with urination. Denies fever or chills. Denies recent change
in medications or diet. Denies recent illness. Denies trauma. Denies back pain. Patient has had similar symptoms in the past, especially urinary difficulties, but attributed to BPH and infection in the past. Patient has required Kelsey catheter
in the past.
Past History
Past History
ED Past Medical History: Arrthythmia (RA), HTN and Other (adrenal tumor, Paige's disease, NATHEN, morbid obestity)
ED Past Surgical History: Other (adrenal tumor resection)
Social History
Tobacco: Non-smoker
Alcohol: None
Drug: None
Personal:
Living: with family
Employment: Employed
Family History
Family History: Other (Noncontributory)
Review of Systems
Review of Systems
Allergies reviewed?: Yes
All Other Systems: ROS reviewed and negative except as documented in HPI and ROS
Constitutional: Reports no symptoms; Denies fever
Cardiac: Reports no symptoms
ABD/GI: Reports constipated; Denies vomiting or diarrhea
: Reports difficulty voiding
Musculoskeletal: Reports no symptoms
Skin: Reports no symptoms
Neurological: Reports no symptoms
Phy Exam
Physical Exam
Physical Exam:
Physical Exam
General: no apparent distress, not acutely ill. afebrile
Head: nc/at. eomi
Neck: supple. no meningeal signs.
Abdomen: normal bowel sounds. not tender.
Neuro: alert and oriented x 3. no focal neurological deficits
Skin: no rash
Psychiatric: well kept. interactive and cooperative
Extremities: no edema. no calf tenderness.
Course
Orders/Labs/Results
Orders:
Orders
02/25/25 22:20
CR Abdomen - 1 View Urgent
Comment:
Reason For Exam: constipation
02/25/25 22:42
Urinalysis Reflex To Culture Urgent
Date Specimen was Collected: 02/25/25
Time Specimen was Collected: 22:40
Urine Microscopic Reflex Cult Urgent
02/25/25 23:45
Phosphate Enema [Fleet Phosphate Enema-Adult] 135 ml RECTAL NOW STA
02/26/25 00:40
Enema- Treatment ONCE
Type: Milk of Molasses
02/26/25 03:00
Lidocaine 2% [Lidocaine Uro-Jet 2%] 1 syringe .ROUTE .STK-MED ONE
02/26/25 03:14
CBI- Treatment PRN
Solution: NSS
02/26/25 03:55
Basic Metabolic Panel Urgent
Complete Blood Count/No Diff Urgent
PTT Urgent
Prothrombin Time Urgent
02/26/25 04:39
Phenazopyridine HCl [Pyridium] 200 mg PO NOW STA
02/26/25 04:40
Acetaminophen [Tylenol] 1,000 mg PO NOW STA
02/26/25 05:08
Admit/Transfer Patient As Directed
Co-Sign Provider:
Level of Care: Inpatient admission
Assign to:: Medical/Surgical
Physician / Group: Abhinav
Diagnosis: Constipation, Urinary Retention / Hematuria
Reason for Hospitalization: Constipation, Urinary Retention / Hematuria
Expected length of stay greater than two midnights?: Yes
ELOS- Estimated Length of Stay in days: 2
I certify the patient meets the requirements for IP care: Yes
PRN Pain Medication Management As Directed
May give lesser potent ordered pain med per pt: Yes
preference::
Protocol:: Medication orders for pain may be administered in a
manner that supports deferring to patient preference
when the pt is:
- Requesting an ordered lesser potent pain medication.
Least to most potent pain medications are defined
as: acetaminophen < NSAID < tramadol < opioids
(morphine, oxycodone, hydromorphone).
- Requesting a lesser dose of the same medication IF
ORDERED.
- Requesting a less intrusive route of administration
if both routes are prescribed by the provider (PO <
IV).
02/26/25 05:09
Code Status As Directed
Resuscitation Status: Full Code
Abnormal Lab Results
02/25/25 02/26/25
22:42 03:55
RBC 4.37 L 10^6/uL
(4.70-6.10)
Hgb 12.8 L g/dL
(13.0-18.0)
Hct 37.8 L %
(39.0-52.0)
PT 22.6 H Sec
(11.4-14.6)
APTT 46.5 H Sec
(23.4-35.0)
Glucose 118 H mg/dl
(70-99)
Ur Occult Blood Reflex 1+ A
(Negative)
Urine Bacteria (Reflex) Few A
(Negative)
02/26/25 03:55
02/26/25 03:55
Vital Signs
Initial and Last Documented VS:
Initial Vital Signs
Temp Pulse Resp BP Pulse Ox
98.1 F 92 18 210/132 97
02/25/25 20:17 02/25/25 20:17 02/25/25 20:17 02/25/25 20:17 02/25/25 20:17
Last Documented Vital Signs
Temp Pulse Resp BP Pulse Ox
98.2 F 64 11 139/73 96
02/26/25 04:23 02/26/25 06:00 02/26/25 06:00 02/26/25 06:00 02/26/25 06:00
MDM/Problems Addressed
MDM/Problems Addressed:
Bladder scan performed and straight cath performed by nursing staff with 2 L of urine. Patient reports significant improvement in symptoms.
Patient given enema with small bowel movement, but reports improvement symptoms. Unfortunately, patient still experiencing difficulty with urination, with repeat bladder scan revealing greater than 1.5 L of urine. Kelsey catheter inserted
afterwards. After 500 mL of urine, decreased flow noted with passage of blood with clots. Attempted manual irrigation without success. As such, decision made to place three-way catheter for CBI. Patient will require admission for further
evaluation and treatment.
Urology () notified via tigertext
*Pulse Oximetry
SaO2: 97
Oxygen Mode of Delivery: Room air
Patient hypoxic: no
*Critical Care Note
Total Time (30-74mins, 75-104mins- exclusive of procedures): Not Applicable
ED Attending Note
-
Portions of this chart may have been created with voice recognition software.� Occasional wrong word or��sound alike� substitutions may have occurred due to the inherent limitations of voice recognition software.
Discharge Plan
Departure
Patient Disposition: Admit
Date of Disposition: 02/26/25
Time of Disposition: 04:45
Admit to: Med/Surg
Presentation/result/management discussed w/ accepting MD/DO: Hospitalist
Discharge Problem:
Acute urinary retention, Hematuria, Constipation
Interventions
Interventions:
*Risk Screen - Suicide Last Done: 02/25/25 20:17
*General Assessment Last Done: 02/25/25 20:17
*Neglect/Abuse Screening Last Done: 02/25/25 20:17
*ED- Fall Risk Assessment Last Done: 02/25/25 20:17
BS-Ttdagm-Ivkhzorhvn Assessment Last Done: 02/25/25 21:22
ED-Male Genitourinary Assessment Last Done: 02/25/25 21:22
[2025-02-25 22:47] LABS: Urine Character Clear (Clear)
[2025-02-25 22:59] LABS: Urine Red Blood Cell 0-2 /HPF (0-2); Urine Squamous Cell 0-2 /LPF (Few); Urine White Cell 0-2 /HPF (0-5)
[2025-02-25] MEDS: FLEET PHOSPHATE ENEMA-ADULT 135 ML RECTAL (23:54)
[2025-02-26] VITALS (8 sets, daily range): BP systolic 100–163; BP diastolic 59–90; BMI 42.4; BMI 42.2
[2025-02-26 04:19] LABS: Hematocrit 37.8 % (39.0-52.0); Hemoglobin 12.8 g/dL (13.0-18.0); Mean Corp Hgb Conc. 33.9 g/dL (33.0-37.0); Mean Corpuscular Volume 86.5 fL (80.0-94.0); Platelet Count 141 10^3/uL (130-400); Red Cell Dist. Width 14.1 % (11.5-14.5)
[2025-02-26 04:30] LABS: INR 1.97; PT 22.6 Sec (11.4-14.6)
[2025-02-26 04:31] LABS: APTT 46.5 Sec (23.4-35.0)
[2025-02-26 04:43] LABS: Blood Urea Nitrogen 11 mg/dl (9-20); Calcium 10.1 mg/dl (8.4-10.2); Carbon Dioxide 29 mmol/L (22-30); Chloride 104 mmol/L (98-107); Estimated Creatinine Clearance 118 ml/min; Glucose 118 mg/dl (70-99); Potassium 4.1 mmol/L (3.5-5.1); Sodium 139 mmol/L (135-145); eGFR > 60.00
[2025-02-26] MEDS: TYLENOL 1000 MG PO (04:45)
--- NOTE | 2025-02-26 05:12 | HPS.HSE ---
Family Physician
-
Family Physician: Dionte Marcos
Chief Complaint
-
Abd discomfort / constipation / difficulty urinating.
History of Present Illness
Patient is a 69y M with PMH significant for hypertension, rheumatoid arthritis and A-Fib on Coumadin who presents to ED complaining of abdominal discomfort with constipation and difficulty urinating. Patient states that he has not moved his
bowels since . He has felt abdominal distention and mild nausea. He also notes that he has not been able to urinate since . He states that this has been a progressive issue with decreased volume / frequency of urination over the
past week or more.
He denies any fevers / chills. No noted bloody urine. No emesis.
Patient states that he ate very little on Friday and presented to the ED this evening with increasing abdominal discomfort and inability to pass urine.
He reports a remote history of prostatitis and states that current inability to urinate feels similar.
Medical History
Past Medical History
Past Medical History: Reports Other
Additional Past Medical History:
Rheumatoid Arthritis
Paroxysmal Atrial Fibrillation
Bone Cancer of Thumb
Hypertension
NATHEN on CPAP
Obesity
Past Surgical History: Reports Other
Additional Past Surgical History:
Cholecystectomy
Appendectomy
Right Thumb Bone Resection / Graft
Social History
Tobacco: Former Smoker (Quit smoking in .)
Alcohol: None
Drug: None
Personal:
Living: With Family
Employment: Retired
Family History
Family History: Not pertinent
Allergies / Home Medications
Allergies reflects when Allergies were last updated in [facility].
Home Medications with original date entered in [facility]
Allergy/Medication List:
Allergies
Allergy/AdvReac Type Severity Reaction Status Date / Time
theophylline Allergy Anaphylaxis Verified 09/09/24 01:54
Home Medications
losartan 100 mg tablet 100 mg PO DAILY Blood pressure #0 tabs 09/15/22
diltiazem HCl 180 mg tablet,extended release 24 hr (Cardizem LA) 180 mg PO DAILY #30 tabs 11/15/22
folic acid 1 mg tablet 1 mg PO DAILY 05/17/24
hydroxychloroquine 200 mg tablet 200 mg PO BID 05/17/24
methotrexate sodium 2.5 mg tablet 7.5 mg PO TH 05/17/24
warfarin 10 mg tablet (Jantoven) 10 mg PO HS 02/26/25
Review of Systems
-
History Source: Patient
A 12 point ROS was completed and negative except as noted: Yes
Constitutional: Reports Fatigue; Denies Fever or Chills
Respiratory: Denies Cough or Trouble Breathing
Cardiac: Denies Chest Pain or Palpitations
Abdomen/GI: Reports Abdominal Pain, Nausea, Constipated and Anorexia; Denies Vomiting, Diarrhea, Bloody Stools or Black Stools
: Reports Difficulty Voiding; Denies Dysuria, Flank Pain or Bleeding
Musculoskeletal: Denies Joint Pain or Edema
Neurological: Denies Dizzy or Headache
Psych: Denies Depression or Anxiety
Physical Exam
Vital Signs
Vital Signs
Temp Pulse Resp BP Pulse Ox
98.2 F 64 17 150/90 96
02/26/25 04:23 02/26/25 04:15 02/26/25 04:15 02/26/25 04:00 02/26/25 04:15
Physical Exam
General: Other (69y M in no acute distress.)
HEENT: Moist mucous membranes, PERRLA and Other (Thick neck.)
Respiratory: Clear; No Wheezes, Rales or Rhonchi
Cardiac: S1/S2 and Regular Rhythm; No Murmur
GI: Soft, Non Tender, Non Distended and Normal Bowel Sounds
Genito-urinary: Other (Kelsey in place with CBI running. Clear / light yellow urine in tubing without visible blood / clots.)
Musculoskeletal: No Clubbing, No Cyanosis and Other (Chronic venous stasis skin changes. No significant pitting edema.)
Neuro: AO x 3
Laboratory Results
-
02/26/25 03:55
02/26/25 03:55
Laboratory Results
PT 22.6 Sec (11.4-14.6) H 02/26/25 03:55
INR 1.97 02/26/25 03:55
APTT 46.5 Sec (23.4-35.0) H 02/26/25 03:55
Impression/Plan
-
A/P: Patient is a 69y M with PMH significant for RA on MTX, NATHEN and hypertension who presents to ED complaining of abdominal discomfort and inability to urinate or move his bowels.
Constipation
Hematuria / Clots
Urinary Retention secondary to the above
- Admit for further evaluation and treatment.
- Mild and molasses enema given in the ED with positive results.
- Bladder hand irrigated for significant amount of clot. Now on CBI with clear appearing urine.
- Maintain Kelsey / CBI
- Hold Coumadin.
- Urology evaluation for additional recommendations.
- Bowel regimen for constipation.
Paroxysmal Atrial Fibrillation
- Stable. Continue current medications.
- Holding Coumadin acutely given hematuria / clots.
- Follow INR.
Benign Hypertension
- Stable. Continue current medications with holding parameters.
Rheumatoid Arthritis
- Stable. Continue Plaquenil and MTX.
NATHEN on CPAP
- Stable. Continue home PAP nightly.
Obesity due to excess calories
- Affects all aspects of care.
- Encourage healthy diet and increased activity with goal of weight loss.
- Patient notes that he has been making significant progress with weight loss over the past 6 months or so.
DVT Prophylaxis: SCDs
Code Status: Full
--- NOTE | 2025-02-26 05:54 | CON.MD ---
Consultation - Medical
-
see dictated note
pt with hx of prostatitis and retention in 2022
no meds now
sen by dr pugh in september 2024- no sx's minimal residual
at home developed constipation and inability to urinate- no dysuria or hematuria
in ER- tompkins placed- hematuria and clots (pt on coumadin for afib)- hand irrigated - now clear
plan
hold coumadin
check urine
start flomax
continue CBI
Consultation
-
Date/Time Consultation Requested: 02/26/25 at 5am
Date/Time Consultation Performed: 02/26/25 at 5:45 am
Requesting Provider: ER
Performing Provider: Dr Haywood
Reason for Consultation: hematuria and retention
[2025-02-26] MEDS: NSS 1000 IV ×2 (08:25→18:33)
[2025-02-26] MEDS: COLACE 100 MG PO ×2 (08:25→19:50)
[2025-02-26] MEDS: PLAQUENIL 200 MG PO ×2 (08:25→19:50)
[2025-02-26] MEDS: ROCEPHIN 1000 MG IV (08:26)
[2025-02-26] MEDS: COZAAR 100 MG PO (08:26)
[2025-02-26] MEDS: FOLVITE 1 MG PO (08:26)
[2025-02-26] MEDS: FLOMAX 0.8 MG PO (08:26)
[2025-02-26] MEDS: CARDIZEM CD 180 MG PO (08:26)
[2025-02-26] MEDS: STERILE WATER FOR INJECTION 10 ML IV (08:27)
[2025-02-26] MEDS: MIRALAX 17 GRAMS PO (08:27)
--- NOTE | 2025-02-26 09:40 | PTCARENOTE ---
pt admitted from ED to room 402- pt ambulated from stretcher to bed. continuous bladder irrigation- via 3 way tompkins, urine clear yellow. pt updated on plan of care and oriented to room and unit.
[2025-02-26] MEDS: SENOKOT 17.2 MG PO (22:37)
[2025-02-27] MEDS: NSS 1000 IV ×2 (03:44→14:15)
--- NOTE | 2025-02-27 06:42 | W.PN.URO.CBU ---
Today's Communication / Plan
-
continue CBI
check INR
continue antibx
Assessment / Plan
-
urinary retention
hematuria
urine now clear
today continue CBI- if INR till elevated would suggest vit K to tart reversal process
continue flomax and antibx- await ucx
would need to consider inpatient cysto if hematuria does aylin over next 48hrs as INR normalizes
Diagnosis
-
Date of Service: February 27, 2025
-
Patient Diagnosis:
bph
urinary retention
hematuria
Subjective
-
pt feel okay
urine has alternated between clear and punch colored
currently clear on cbi drip- irrigated- no clots
ucx and INR pending
Objective
-
Vital Signs
Temp Pulse Resp BP Pulse Ox
98.0 F 89 18 110/64 97
02/26/25 23:22 02/26/25 23:22 02/26/25 23:22 02/26/25 23:22 02/26/25 23:22
Intake and Output
02/25/25 02/26/25 02/27/25
06:59 06:59 06:59
Intake Total 2400 / 2400
Output Total 4400 / 4400 3150 / 3150
Balance -4400 / -4400 -750 / -750
Intake:
Oral fluids 1440 / 1440
IV fluids (Total) 960 / 960
Output:
Straight cath output 1999
True Urine Output from CBI 2400 / 2400 3150 / 3150
Review of Systems
-
Constitutional: Fatigue
Respiratory: No Symptoms
Cardiac: No Symptoms
Abdomen/GI: No Symptoms
Physical Exam
-
General - no acute distress
Abdomen - soft, non-tender
Genitalia - tompkins in place
[2025-02-27 07:19] LABS: Hematocrit 38.7 % (39.0-52.0); Hemoglobin 12.6 g/dL (13.0-18.0); INR 1.84; Mean Corp Hgb Conc. 32.6 g/dL (33.0-37.0); Mean Corpuscular Volume 90.2 fL (80.0-94.0); PT 21.4 Sec (11.4-14.6); Platelet Count 148 10^3/uL (130-400); Red Cell Dist. Width 14.3 % (11.5-14.5)
[2025-02-27 07:40] VITALS: BP 138/75
[2025-02-27 07:52] LABS: Blood Urea Nitrogen 11 mg/dl (9-20); Calcium 9.0 mg/dl (8.4-10.2); Carbon Dioxide 31 mmol/L (22-30); Chloride 104 mmol/L (98-107); Estimated Creatinine Clearance 103 ml/min; Glucose 102 mg/dl (70-99); Potassium 4.0 mmol/L (3.5-5.1); Sodium 138 mmol/L (135-145); eGFR > 60.00
[2025-02-27] MEDS: STERILE WATER FOR INJECTION 10 ML IV (09:09)
[2025-02-27] MEDS: CARDIZEM CD PO (09:09)
[2025-02-27] MEDS: ROCEPHIN 1000 MG IV (09:10)
[2025-02-27] MEDS: MIRALAX 17 GRAMS PO (09:10)
[2025-02-27] MEDS: COLACE 100 MG PO ×2 (09:10→21:18)
[2025-02-27] MEDS: FOLVITE 1 MG PO (09:11)
[2025-02-27] MEDS: FLOMAX 0.8 MG PO (09:11)
[2025-02-27] MEDS: PLAQUENIL 200 MG PO ×2 (09:11→21:18)
[2025-02-27] MEDS: COZAAR 100 MG PO (09:11)
--- NOTE | 2025-02-27 09:37 | W.PN.HOSP.TC ---
Addendum entered and electronically signed by David Mares MD 02/27/25 10:06:
DW Uro - urine was clearer yesterday but has blood tinge again today which is indeep the case
Will give a oral Vit K . No hx of strokes. He is in SR now.
Original Note:
Today's Communication/Plan
-
Continue with CBI
Follow INR
Continue with ceftriaxone
Assessment / Plan
Assessment / Plan
A/P: Patient is a 69y M with PMH significant for RA on MTX, NATHEN and hypertension who presents to ED complaining of abdominal discomfort and inability to urinate or move his bowels.
Constipation
Hematuria / Clots
Urinary Retention secondary to the above
- Mild and molasses enema given in the ED with positive results.
- Bladder hand irrigated for significant amount of clot. Now on CBI with clear appearing urine.
- Maintain Kelsey / CBI
- H&H stable
- Hold Coumadin. INR 1.84. Urine now clear so we will hold on reversal process and left INR come down. If there is recurrent hematuria then we will consider reversal process.
- Urology following.
- Bowel regimen for constipation.
- Continue with ceftriaxone pending urine culture data
Paroxysmal Atrial Fibrillation
- Stable. Continue current medications.
- Holding Coumadin acutely given hematuria / clots.
- Follow INR.
Benign Hypertension
- Stable. Continue current medications with holding parameters.
Rheumatoid Arthritis
- Stable. Continue Plaquenil and MTX.
NATHEN on CPAP
- Stable. Continue home PAP nightly.
Obesity due to excess calories
- Affects all aspects of care.
- Encourage healthy diet and increased activity with goal of weight loss.
- Patient notes that he has been making significant progress with weight loss over the past 6 months or so.
DVT Prophylaxis: SCDs
Code Status: Full
Anticipated Discharge: > 48 hours
Subjective/Interval History
-
Date of Service: February 27, 2025
Still on CBI. Hematuria clearing.
No prior history of hematuria. On Coumadin for A-fib for a few years. Most recent INR at home was therapeutic at 2.5 and on admission here it was 1.9.
Denies any fever or chills.
Denies any chest pain, palpitations or shortness of breath.
No nausea or vomiting.
Objective Data
-
Labs:
Laboratory Results
02/27/25
05:27
WBC 5.8
Hgb 12.6 L
Hct 38.7 L
Plt Count 148
PT 21.4 H
INR 1.84
Sodium 138
Potassium 4.0
Chloride 104
Carbon Dioxide 31 H
BUN 11
Creatinine 1.0
Glucose 102 H
Calcium 9.0
Vital Signs:
Vital Signs
Temp Pulse Resp BP Pulse Ox
97.4 F 57 16 138/75 97
02/27/25 07:40 02/27/25 09:11 02/27/25 07:40 02/27/25 09:11 02/27/25 07:40
I&O
02/26/25 02/27/25 02/28/25
06:59 06:59 06:59
Intake Total 2400 / 2400
Output Total 4400 / 4400 3150 / 3150
Balance -4400 / -4400 -750 / -750
Physical Exam
-
General: Comfortable
Respiratory: Non Labored Respirations; Negative Accessory Resp Muscle Use
Cardiac: Regular Rhythm, S1/S2 and Murmur; Negative Tachycardic
GI: Soft and Nontender
Genito-urinary: No Costovertebral Tender, Kelsey and Continuous Bladder Irrigation
Musculoskeletal: Edema, Right Lower Extrem and Edema, Left Lower Extrem
Neuro: AO x 3
Psych: Calm
Data Reviewed
-
Labs: Labs Reviewed by me
[2025-02-27] MEDS: MEPHYTON 5 MG PO (10:23)
[2025-02-27] MEDS: TYLENOL 650 MG PO (14:15)
[2025-02-27 15:05] VITALS: BP 124/71
[2025-02-27] MEDS: SENOKOT 17.2 MG PO (21:18)
[2025-02-27] MEDS: MELATONIN 3 MG PO (21:18)
[2025-02-27 23:32] VITALS: BP 129/73
[2025-02-28] MEDS: TYLENOL 650 MG PO ×3 (03:17→20:37)
[2025-02-28 07:05] VITALS: BP 150/85
--- NOTE | 2025-02-28 07:10 | W.PN.URO.CBU ---
Today's Communication / Plan
-
stop cbi
if urine clear tomorrow- tompkins removal for TOV
Assessment / Plan
-
urinary retention
hematuria
urine now clear
hold cbi today- continue flomax
if urine clear in am- remove tompkins for TOV
stop rocephin- but start doxy given hx of UTI
continue coumadin hold for now
Diagnosis
-
Date of Service: February 28, 2025
-
Patient Diagnosis:
bph
urinary retention
hematuria
Subjective
-
pt still tired and has not moved his bowels
urine was pink most of the day- turned yellow lat night- clear this am on minimal cbi
ucx was negative
did receive vit K yesterday- INR pending today
Objective
-
Vital Signs
Temp Pulse Resp BP Pulse Ox
97.9 F 54 19 129/73 96
02/27/25 23:32 02/27/25 23:32 02/27/25 23:32 02/27/25 23:32 02/27/25 23:32
Intake and Output
02/27/25 02/28/25 03/01/25
06:59 06:59 06:59
Intake Total 2400 / 2400 240 / 240
Output Total 3150 / 3150 4450 / 4450
Balance -750 / -750 -4210 / -4210
Intake:
Oral fluids 1440 / 1440 240 / 240
IV fluids (Total) 960 / 960
Output:
True Urine Output from CBI 3150 / 3150 4450 / 4450
Laboratory Results
02/27/25 05:27
Review of Systems
-
Constitutional: Fatigue
Respiratory: No Symptoms
Cardiac: No Symptoms
Abdomen/GI: Constipated
Physical Exam
-
General - no acute distress
Abdomen - soft, non-tender
Genitalia - [address]
[2025-02-28 08:47] LABS: Hematocrit 36.4 % (39.0-52.0); Hemoglobin 12.2 g/dL (13.0-18.0); Mean Corp Hgb Conc. 33.5 g/dL (33.0-37.0); Mean Corpuscular Volume 89.2 fL (80.0-94.0); Platelet Count 140 10^3/uL (130-400); Red Cell Dist. Width 14.1 % (11.5-14.5)
[2025-02-28 08:52] LABS: INR 1.39; PT 17.2 Sec (11.4-14.6)
[2025-02-28] MEDS: CARDIZEM CD PO (08:59)
[2025-02-28] MEDS: COZAAR 100 MG PO (09:00)
[2025-02-28] MEDS: VIBRAMYCIN 100 MG PO ×2 (09:00→20:29)
[2025-02-28] MEDS: MIRALAX 17 GRAMS PO (09:00)
[2025-02-28] MEDS: FOLVITE 1 MG PO (09:01)
[2025-02-28] MEDS: COLACE 100 MG PO ×2 (09:01→20:29)
[2025-02-28] MEDS: PLAQUENIL 200 MG PO ×2 (09:01→20:29)
[2025-02-28] MEDS: FLOMAX 0.8 MG PO (09:02)
--- NOTE | 2025-02-28 14:39 | W.PN.HOSP.TC ---
Today's Communication/Plan
-
Stop CBI
TOV tomorrow
Assessment / Plan
Assessment / Plan
A/P: Patient is a 69y M with PMH significant for RA on MTX, NATHEN and hypertension who presents to ED complaining of abdominal discomfort and inability to urinate or move his bowels.
Constipation
Hematuria / Clots
Urinary Retention secondary to the above
- Mild and molasses enema given in the ED with positive results.
- Bladder hand irrigated for significant amount of clot. Now on CBI with clear appearing urine.
- Maintain Kelsey / CBI
- H&H stable
- Hold Coumadin. Urine now clear so we will hold on reversal process and left INR come down. If there is recurrent hematuria then we will consider reversal process.
- Urology following.
- Bowel regimen for constipation.
- Continue with ceftriaxone pending urine culture data
�Stop CBI
� Trial Kelsey removal tomorrow
Paroxysmal Atrial Fibrillation
- Stable. Continue current medications.
- Holding Coumadin acutely given hematuria / clots.
- Anticipate bridging with Lovenox to Coumadin
� As per patient, DOAC was not covered
Benign Hypertension
- Stable. Continue current medications with holding parameters.
Rheumatoid Arthritis
- Stable. Continue Plaquenil and MTX.
NATHEN on CPAP
- Stable. Continue home PAP nightly.
Obesity due to excess calories
- Affects all aspects of care.
- Encourage healthy diet and increased activity with goal of weight loss.
- Patient notes that he has been making significant progress with weight loss over the past 6 months or so.
DVT Prophylaxis: SCDs
Code Status: Full
Anticipated Discharge: 24 - 48 hours
Subjective/Interval History
-
Date of Service: February 28, 2025
Clear yellow urine in Kelsey bag
Objective Data
-
Labs:
Laboratory Results
02/28/25
07:04
WBC 6.3
Hgb 12.2 L
Hct 36.4 L
Plt Count 140
PT 17.2 H
INR 1.39
Vital Signs:
Vital Signs
Temp Pulse Resp BP Pulse Ox
97.5 F 57 16 150/85 97
02/28/25 07:05 02/28/25 08:59 02/28/25 07:05 02/28/25 07:05 02/28/25 07:05
I&O
02/27/25 02/28/25 03/01/25
06:59 06:59 06:59
Intake Total 2400 / 2400 240 / 240
Output Total 3150 / 3150 4450 / 4450
Balance -750 / -750 -4210 / -4210
Review of Systems
-
History Source: Patient
All other systems: Not reviewed unless documented
Data Reviewed
-
Labs: Labs Reviewed by me
[2025-02-28 15:05] VITALS: BP 140/68
--- NOTE | 2025-02-28 17:55 | CM ---
Alert awake oriented patient who lives with his Kaylie and son Gus in a 2 story home with 1 step to enter and bed and bathroom on first floor. He is independent in driving and in all activities of daily living.He was offered VN he declined
need.CPAP with [facility]
Pt [facility] hx / No SNF history
Pharmacy [facility]
PCP DR Marcos
PLAN Home Declined VN
[2025-02-28] MEDS: SENOKOT 17.2 MG PO (20:29)
[2025-02-28] MEDS: MELATONIN 3 MG PO (21:31)
[2025-02-28 23:18] VITALS: BP 125/60
[2025-03-01 06:54] LABS: Hematocrit 38.0 % (39.0-52.0); Hemoglobin 12.4 g/dL (13.0-18.0); Mean Corp Hgb Conc. 32.6 g/dL (33.0-37.0); Mean Corpuscular Volume 88.6 fL (80.0-94.0); Platelet Count 148 10^3/uL (130-400); Red Cell Dist. Width 14.1 % (11.5-14.5)
[2025-03-01 06:58] LABS: INR 1.19; PT 15.3 Sec (11.4-14.6)
[2025-03-01 07:05] VITALS: BP 124/80
[2025-03-01 07:13] LABS: ALT (SGPT) 17 U/L (0-50); AST (SGOT) 17 U/L (17-59); Albumin 3.9 g/dl (3.5-5.0); Alkaline Phosphatase 54 U/L (38-126); Blood Urea Nitrogen 13 mg/dl (9-20); Calcium 9.3 mg/dl (8.4-10.2); Carbon Dioxide 32 mmol/L (22-30); Chloride 102 mmol/L (98-107); Estimated Creatinine Clearance 103 ml/min; Glucose 106 mg/dl (70-99); Potassium 4.2 mmol/L (3.5-5.1); Sodium 138 mmol/L (135-145); Total Protein 6.5 g/dl (6.3-8.2); eGFR > 60.00
--- NOTE | 2025-03-01 08:29 | PN.CDI ---
CDI
- -
CDI:
Physician Documentation Request
Admit Date: 02/26/25 05:30
Dear Doctor,
Please review the following and provide your response in the progress notes.
Clinical Indicators:
Pt admitted with Hematuria / Clots and Urinary Retention.
Pt with hx of PAF on Coumadin. ' - Holding Coumadin acutely given hematuria / clots.' (PN 02/28)
INR 1.97, 1.84, 1.39
Please clarify the relationship between these conditions:
Yes, Hematuria is related to/associated with/exacerbated by Coumadin.
No, Hematuria is not related to/associated with/exacerbated by Coumdin.
Other
Use of terms such as suspected, likely, concern for, or probable (associated with a specific diagnosis that is being evaluated, monitored, or treated as if it exists) are acceptable and can be coded in the inpatient setting, when documented at the
time of discharge.
Thank you,
Briana Morneo RN, BSN
CDI Specialist
[place] [facility]
Please use your independent medical judgment in providing your response.
[2025-03-01] MEDS: CARDIZEM CD PO (08:42)
[2025-03-01] MEDS: MIRALAX 17 GRAMS PO (08:42)
[2025-03-01] MEDS: COLACE 100 MG PO ×2 (08:43→20:13)
[2025-03-01] MEDS: VIBRAMYCIN 100 MG PO ×2 (08:43→20:13)
[2025-03-01] MEDS: FLOMAX 0.8 MG PO (08:43)
[2025-03-01] MEDS: COZAAR 100 MG PO (08:43)
[2025-03-01] MEDS: FOLVITE 1 MG PO (08:43)
[2025-03-01] MEDS: PLAQUENIL 200 MG PO ×2 (08:43→20:13)
[2025-03-01] MEDS: TYLENOL 650 MG PO ×2 (11:49→20:15)
--- NOTE | 2025-03-01 14:03 | W.PN.HOSP.TC ---
Today's Communication/Plan
-
monitor for improval in hematuria s/p tompkins removal
Await urology recs/clearance for Anticoagulation initiation
Assessment / Plan
Assessment / Plan
A/P: Patient is a 69y M with PMH significant for RA on MTX, NATHEN and hypertension who presents to ED complaining of abdominal discomfort and inability to urinate or move his bowels.
Constipation
Hematuria / Clots
Urinary Retention secondary to the above
- Mild and molasses enema given in the ED with positive results.
- Bladder hand irrigated for significant amount of clot. Now on CBI with clear appearing urine.
- Maintain Tompkins / CBI
- H&H stable
- Hold Coumadin. Urine now clear so we will hold on reversal process and left INR come down. If there is recurrent hematuria then we will consider reversal process.
- Urology following.
- Bowel regimen for constipation.
- Continue with ceftriaxone pending urine culture data
�Stop CBI
� Trial Tompkins removal today - had recurrent Hematuria - may be traumatic - monitor
Paroxysmal Atrial Fibrillation
- Stable. Continue current medications.
- Holding Coumadin acutely given hematuria / clots.
- Anticipate bridging with Lovenox to Coumadin
� As per patient, DOAC was not covered
Benign Hypertension
- Stable. Continue current medications with holding parameters.
Rheumatoid Arthritis
- Stable. Continue Plaquenil and MTX.
NATHEN on CPAP
- Stable. Continue home PAP nightly.
Obesity due to excess calories
- Affects all aspects of care.
- Encourage healthy diet and increased activity with goal of weight loss.
- Patient notes that he has been making significant progress with weight loss over the past 6 months or so.
DVT Prophylaxis: SCDs
Code Status: Full
Anticipated Discharge: Within 24 hours
Subjective/Interval History
-
Date of Service: March 01, 2025
hematuria after tompkins removal
Objective Data
-
Labs:
Laboratory Results
03/01/25
06:21
WBC 6.6
Hgb 12.4 L
Hct 38.0 L
Plt Count 148
PT 15.3 H
INR 1.19
Sodium 138
Potassium 4.2
Chloride 102
Carbon Dioxide 32 H
BUN 13
Creatinine 1.0
Glucose 106 H
Calcium 9.3
Total Bilirubin 0.6
AST 17
ALT 17
Alkaline Phosphatase 54
Vital Signs:
Vital Signs
Temp Pulse Resp BP Pulse Ox
97.6 F 54 16 124/80 99
03/01/25 07:05 03/01/25 08:42 03/01/25 07:05 03/01/25 08:42 03/01/25 10:37
I&O
02/28/25 03/01/25 03/02/25
06:59 06:59 06:59
Intake Total 240 / 240 240 / 240
Output Total 4450 / 4450 3800 / 3800
Balance -4210 / -4210 -3560 / -3560
Review of Systems
-
History Source: Patient
All other systems: Not reviewed unless documented
Data Reviewed
-
Diagnostic Radiology: Report Reviewed by me
Labs: Labs Reviewed by me
[2025-03-01 15:35] VITALS: BP 149/78
--- NOTE | 2025-03-01 16:09 | W.PN.URO.CBU ---
Today's Communication / Plan
-
teach foleyand leg bag care
Assessment / Plan
-
urinary retention
hematuria
urine now clear
hold cbi today- continue flomax
failed voiding 440cc drained will rreplace tompkins and probably home with tompkins voiding trial next week
stop rocephin- but start doxy given hx of UTI
continue coumadin hold for now
Diagnosis
-
Date of Service: March 01, 2025
-
Patient Diagnosis:
Post Op Day:
Patient Diagnosis:urinary retention
bph
urinary retention
hematuria
Subjective
-
could not void today
Objective
-
Vital Signs
Temp Pulse Resp BP Pulse Ox
97.6 F 54 16 124/80 99
03/01/25 07:05 03/01/25 08:42 03/01/25 07:05 03/01/25 08:42 03/01/25 10:37
Intake and Output
02/28/25 03/01/25 03/02/25
06:59 06:59 06:59
Intake Total 240 / 240 240 / 240
Output Total 4450 / 4450 3800 / 3800
Balance -4210 / -4210 -3560 / -3560
Intake:
Oral fluids 240 / 240 240 / 240
Output:
Urine, Tompkins 3800 / 3800
True Urine Output from CBI 4450 / 4450
Laboratory Results
03/01/25 06:21
03/01/25 06:21
Review of Systems
-
: Difficulty Voiding and Bleeding
Physical Exam
-
General - well developed, well nourished, no acute distress
Chest - clear bilaterally
Abdomen - soft, non-tender, positive bowel sounds, no CVAT, no incisional pain or distention
Genitalia - normal
Rectal - normal
Skin - warm & dry with no rash
Neuro - AOx3, no motor deficits
Extremities - no clubbing, no cyanosis, no edema
Incision - clean, dry
Dressing - clean, dry, intact
Care Review
Data Reviewed
Discussed with: Hospitalist, Internal Medicine and Nursing
--- NOTE | 2025-03-01 16:56 | PTCARENOTE ---
Tompkins removed this AM @ 06:00. Due to void by 12:00. Pt voided bloody urine. MD Norris and MD Claros notified. Pt again urinated about 400ml bloody urine plus small incontinence d/t urgency. Pt complaining of urgency and burning with urination.
PVR 488. Made MDs aware, Dr Claros at bedside, instructed this RN to place tompkins and provide education for dc with tompkins. Inserted 16F tompkins with 440 instant output of bloody urine, pt educated on use of tompkins catheter. Pt states he has had one
before and is familiar. Pt resting comfortably in bed, denies pain, call sandoval within reach.
[2025-03-01] MEDS: MELATONIN 3 MG PO (21:32)
[2025-03-01] MEDS: SENOKOT 17.2 MG PO (21:32)
[2025-03-01] MEDS: ROXICODONE 5 MG PO (22:27)
[2025-03-01 23:39] VITALS: BP 125/52
[2025-03-02 07:25] VITALS: BP 154/75
[2025-03-02 07:53] LABS: Hematocrit 37.8 % (39.0-52.0); Hemoglobin 12.7 g/dL (13.0-18.0); Mean Corp Hgb Conc. 33.6 g/dL (33.0-37.0); Mean Corpuscular Volume 89.6 fL (80.0-94.0); Platelet Count 135 10^3/uL (130-400); Red Cell Dist. Width 14.1 % (11.5-14.5)
[2025-03-02 08:37] LABS: Blood Urea Nitrogen 13 mg/dl (9-20); Calcium 9.4 mg/dl (8.4-10.2); Carbon Dioxide 28 mmol/L (22-30); Chloride 102 mmol/L (98-107); Estimated Creatinine Clearance 114 ml/min; Glucose 95 mg/dl (70-99); Potassium 4.2 mmol/L (3.5-5.1); Sodium 137 mmol/L (135-145); eGFR > 60.00
[2025-03-02] MEDS: MIRALAX 17 GRAMS PO (09:45)
[2025-03-02] MEDS: FLOMAX 0.8 MG PO (09:46)
[2025-03-02] MEDS: FOLVITE 1 MG PO (09:47)
[2025-03-02] MEDS: PLAQUENIL 200 MG PO (09:47)
[2025-03-02] MEDS: COLACE 100 MG PO (09:47)
[2025-03-02] MEDS: COZAAR 100 MG PO (09:47)
[2025-03-02] MEDS: CARDIZEM CD 180 MG PO (09:47)
[2025-03-02] MEDS: VIBRAMYCIN 100 MG PO (09:47)
[2025-03-02] MEDS: LOVENOX 150 MG SC (11:00)
--- NOTE | 2025-03-02 12:37 | W.PN.URO.CBU ---
Today's Communication / Plan
-
teach pt tompkins leg bag care
Assessment / Plan
-
urinary retention
hematuria
urine now clear
hold cbi today- continue flomax
failed voiding 440cc drained will rreplace tompkins and probably home with tompkins voiding trial next week
stop rocephin- but start doxy given hx of UTI
continue coumadin hold for now
Diagnosis
-
Date of Service: March 02, 2025
-
Patient Diagnosis:
Post Op Day:
Patient Diagnosis:
Post Op Day:
Patient Diagnosis:urinary retention
bph
urinary retention
hematuria
Subjective
-
failed voiding trial no clots
Objective
-
Vital Signs
Temp Pulse Resp BP Pulse Ox
97.9 F 54 18 154/75 95
03/02/25 07:25 03/02/25 09:47 03/02/25 07:25 03/02/25 09:47 03/02/25 10:00
Intake and Output
03/01/25 03/02/25 03/03/25
06:59 06:59 06:59
Intake Total 240 / 240 480 / 480
Output Total 3800 / 3800 2550 / 2550
Balance -3560 / -3560 -2069 / -2069
Intake:
Oral fluids 240 / 240 480 / 480
Output:
Urine, Tompkins 3800 / 3800 2550 / 2550
Laboratory Results
03/02/25 06:33
03/02/25 06:33
Review of Systems
-
: Difficulty Voiding
Physical Exam
-
General - well developed, well nourished, no acute distress
Chest - clear bilaterally
Abdomen - soft, non-tender, positive bowel sounds, no CVAT, no incisional pain or distention
Genitalia - normal
Rectal - normal
Skin - warm & dry with no rash
Neuro - AOx3, no motor deficits
Extremities - no clubbing, no cyanosis, no edema
Incision - clean, dry
Dressing - clean, dry, intact
Counseling
-
teach tompkins and leg bag care
Care Review
Data Reviewed
Discussed with: Hospitalist and Nursing
--- NOTE | 2025-03-02 14:28 | W.PN.HOSP.TC ---
Addendum entered and electronically signed by Preston Norris MD 03/02/25 16:40:
[id number]
Addendum entered and electronically signed by Preston Norris MD 03/02/25 14:55:
Leg pain
DVT negative
Original Note:
Today's Communication/Plan
-
tompkins teaching
doxycycline 7 day course total
Resume lower dose coumadin and titrate up slowly f/u with INR closely
F/u Urology for cath removal in 1 week
f/u pcp within 1 week
Assessment / Plan
Assessment / Plan
A/P: Patient is a 69y M with PMH significant for RA on MTX, NATHEN and hypertension who presents to ED complaining of abdominal discomfort and inability to urinate or move his bowels.
Constipation
Hematuria / Clots
Urinary Retention secondary to the above
- Mild and molasses enema given in the ED with positive results.
- Bladder hand irrigated for significant amount of clot. Now on CBI with clear appearing urine.
- Maintain Tompkins / CBI
- H&H stable
- Hold Coumadin. Urine now clear so we will hold on reversal process and left INR come down. If there is recurrent hematuria then we will consider reversal process.
- Urology following.
- Bowel regimen for constipation.
- Continue with ceftriaxone pending urine culture data
�S/p CBI
� Failed TOV with hematuria - now resolved, dark yellow urine
-Cont Tompkins
-F/u Urology outpt
-trial on coumadin
-Doxycycline for #UTI
Paroxysmal Atrial Fibrillation
- Stable. Continue current medications.
- Cleared by Urology for anticoagulation; Start back Coumadin at lower dose of 5mg and monitor INR closely with slow titration up; Hold if recurrent bleeding/hematuria until catheter is out by Urology within 1 week
� As per patient, DOAC was not covered
Benign Hypertension
- Stable. Continue current medications with holding parameters.
Rheumatoid Arthritis
- Stable. Continue Plaquenil and MTX.
NATHEN on CPAP
- Stable. Continue home PAP nightly.
Obesity due to excess calories
- Affects all aspects of care.
- Encourage healthy diet and increased activity with goal of weight loss.
- Patient notes that he has been making significant progress with weight loss over the past 6 months or so.
DVT Prophylaxis: Trial lovenox
Code Status: Full
More than 30 minutes spent in discharge including
Final examination of the patient
Summarizing hospital stay
Instructions for continuing care to all relevant caregivers
Preparation of discharge records, prescriptions, and referral forms
Total time spent (in minutes): 36
Anticipated Discharge: Today
Subjective/Interval History
-
Date of Service: March 02, 2025
hematuria resolved
Objective Data
-
Labs:
Laboratory Results
03/02/25
06:33
WBC 7.7
Hgb 12.7 L
Hct 37.8 L
Plt Count 135
Sodium 137
Potassium 4.2
Chloride 102
Carbon Dioxide 28
BUN 13
Creatinine 0.9
Glucose 95
Calcium 9.4
Vital Signs:
Vital Signs
Temp Pulse Resp BP Pulse Ox
97.9 F 54 18 154/75 95
03/02/25 07:25 03/02/25 09:47 03/02/25 07:25 03/02/25 09:47 03/02/25 10:00
I&O
03/01/25 03/02/25 03/03/25
06:59 06:59 06:59
Intake Total 240 / 240 480 / 480
Output Total 3800 / 3800 2550 / 2550
Balance -3560 / -3560 -2069 / -2069
Review of Systems
-
History Source: Patient
All other systems: Not reviewed unless documented
Physical Exam
-
General: Comfortable
Respiratory: Non Labored Respirations; Negative Accessory Resp Muscle Use
Cardiac: Regular Rhythm, S1/S2 and Murmur; Negative Tachycardic
GI: Soft and Nontender
Genito-urinary: No Costovertebral Tender and Tompkins (dark yellow urine)
Musculoskeletal: Edema, Right Lower Extrem and Edema, Left Lower Extrem
Neuro: AO x 3
Psych: Calm
Data Reviewed
-
CT Scan: Report Reviewed by me
Ultrasound: Report Reviewed by me
Labs: Labs Reviewed by me
--- NOTE | 2025-03-02 14:55 | W.DS.TRANS ---
DC Summary - Physician Vice President
-
Discharge Instructions:
Discharge Diagnosis/Procedures Hematuria
Diet Low Cholesterol,Low Fat
Activity As tolerated
Blood Work CBC and CMP 1 week
Follow-up INR closely within 1-2 days with
recommendations from Coumadin clinic -
acknowledging want to bring back INR slowly with
hematuria
Others Tests As per urology outpatient
Instructions:
Stand-Alone Forms:
Changes to Home Medications: Yes
Discharge Medications:
DC Medications w/original date entered in [facility]
losartan 100 mg tablet 100 mg PO DAILY Blood pressure #0 tabs 09/15/22
diltiazem HCl 180 mg tablet,extended release 24 hr (Cardizem LA) 180 mg PO DAILY #30 tabs 11/15/22
folic acid 1 mg tablet 1 mg PO DAILY 05/17/24
hydroxychloroquine 200 mg tablet 200 mg PO BID 05/17/24
methotrexate sodium 2.5 mg tablet 7.5 mg PO TH 05/17/24
doxycycline hyclate 100 mg capsule 100 mg PO Q12 5 days #10 caps 03/02/25
tamsulosin 0.4 mg capsule 0.8 mg (2 x 0.4 mg) PO DAILY 30 days #60 caps 03/02/25
warfarin 10 mg tablet (Jantoven) 5 mg (1/2 x 10 mg) PO HS 7 days #7 tabs 03/02/25
Home Medication Changes
doxycycline hyclate 100 mg capsule 100 mg PO Q12 5 days #10 caps 03/02/25
tamsulosin 0.4 mg capsule 0.8 mg (2 x 0.4 mg) PO DAILY 30 days #60 caps 03/02/25
warfarin 10 mg tablet (Jantoven) 5 mg (1/2 x 10 mg) PO HS 7 days #7 tabs 03/02/25
Pending Results: No
--- NOTE | 2025-03-02 14:59 | CM ---
Patient seen bedside.
IMM reviewed.
New Kelsey catheter, would like [facility], TT to liaison.
Son will transport.
Plan: home with VN
[2025-03-02 15:04] VITALS: BP 140/83
--- NOTE | 2025-03-02 15:54 | VNURNOTE ---
Home Health Liaison met with patient at bedside to discuss [facility] nurse/therapy, visits, schedule and homebound status. Patient is agreeable and understands that visits at home will be 2-3 x per week to assess and teach medical and tompkins
management. Patient is aware that [facility] will contact them for start of care within a few days after discharge from . He is familiar with services, had us in the past.
[facility] referral completed in [facility].
--- NOTE | 2025-03-02 18:16 | PTCARENOTE ---
rn marketing database coordinator- Patient taken to the discharge lounge. Patient stood up and to sit in lounge chair and stated that he is feeling like he is gonna faint. Patient given d8 ounces of water and pretzels. Patient stated he felt no better. As per
chart patients last b/p when admistted was 154/ systolic, b/p checked and found to be 84/54.POX-96, and heart rate per dynamap 62. Called to paste mixing supervisor. Patient taken to the ED.
== END 2025-03-02 17:29 | disposition home or self-care (01) | DRG 392 ==
LOC: 4 EAST ACU 05:30
PROVIDERS: Internal Medicine; ADMITTING PHYSICIAN Hospitalist; ATTENDING PHYSICIAN Internal Medicine; CONSULT PHYSICIAN Specialist; EMERGENCY PHYSICIAN Emergency Medicine; FAMILY PHYSICIAN Family Medicine
DX: K59.00 Constipation, unspecified (principal); N39.0 Urinary tract infection, site not specified; Z68.41 Body mass index [BMI] 40.0-44.9, adult; E24.9 Cushing's syndrome, unspecified; R31.9 Hematuria, unspecified; M06.9 Rheumatoid arthritis, unspecified; G47.33 Obstructive sleep apnea (adult) (pediatric); I10 Essential (primary) hypertension; I48.0 Paroxysmal atrial fibrillation; E66.09 Other obesity due to excess calories; Z87.891 Personal history of nicotine dependence; Z79.01 Long term (current) use of anticoagulants; Z79.631 Long term (current) use of antimetabolite agent; N40.1 Benign prostatic hyperplasia with lower urinary tract symptoms; R33.8 Other retention of urine
CPT/HCPCS: 51701; 51702; 51798; 74018; 80048; 80053; 81003; 81015; 85027; 85610; 85730; 87086; 93005; 93970; 99285

== ENCOUNTER 2025-03-02 23:38 | Inpatient (IN) | payer MEDICARE, OTHER, SELFPAY ==
[2025-03-02 18:19] VITALS: BP 86/60
[2025-03-02 18:31] VITALS: BP 93/65
[2025-03-02 18:58] VITALS: BMI 41.4
[2025-03-02 19:00] VITALS: BP 114/75
[2025-03-02 20:00] VITALS: BP 98/51
--- NOTE | 2025-03-02 20:58 | ED.GENMED ---
History of Present Illness
General
Chief Complaint: Fainting Sensation
Source: patient and family
Exam Limitations: none
Time Seen by Provider: 03/02/25 20:50
Nursing documentation reviewed up to this point in time: agreed with
History of Present Illness
History of Present Illness:
Note:
CHIEF COMPLAINT(S)
Weakness while waiting in the discharge lounge after hospitalization for hematuria and urinary retention.
HISTORY OF PRESENT ILLNESS
The patient is a 69-year-old male who was initially admitted with hematuria and urinary retention, for which he was placed on continuous bladder irrigation (CBI) that resulted in improvement. Following this, he was discharged but experienced a sense
of weakness while waiting in the discharge lounge, prompting a return to the emergency department.
Upon evaluation, it was noted that the patient was experiencing atrial fibrillation. He reported a sensation of fluttering, indicating ongoing atrial fibrillation. The patient acknowledged non-compliance with his medication prior to this episode. He
described a history of constipation during the week of hospitalization, which the medical team addressed with bladder irrigation to manage the hematuria. The patients Tompkins catheter is currently draining yellow urine.
Vital signs indicated a relatively low blood pressure initially, which saw slight improvement with intervention. The patients heart rate, while irregular due to atrial fibrillation, is currently stable.
PHYSICAL EXAM
General: Patient appears alert with no acute distress.
Cardiovascular: tachycardia noted, with initial blood pressure recorded at 125/70 mmHg.
Neurological: Alert and oriented to person, place, time, and situation.
Tompkins catheter in place, blood around tompkins, yellow urine in bag
PROBLEM LIST
Acute:
- Weakness post-discharge
- Atrial fibrillation
- Hematuria
- Urinary retention
PLAN
- Continuation of monitoring for atrial fibrillation to assess the need for further intervention.
- Re-evaluation of current medication regimen to ensure compliance and adjustment as necessary for atrial fibrillation management.
- Further observation to ensure stability of vital signs and overall condition before final discharge.
DIFFERENTIAL DIAGNOSIS
The Differential Diagnosis includes, in no particular order and is not limited to:
- Anemia secondary to hematuria
- Acute kidney injury due to urinary retention
- Medication non-compliance effects
- Dehydration
- Electrolyte imbalance
- Cardiac arrhythmia complications
- Urinary tract infection
- Bladder outlet obstruction
- Constipation-related abdominal distress
- Vasovagal syncope or orthostatic hypotension
EKG
My independent EKG interpretation is:
- EKG time: Not provided
- Rhythm: Atrial fibrillation with rapid ventricular response
- Heart rate: Not provided
- MO interval: Not provided
- QRS duration: Not provided
- QT interval: Not provided
- [place]: Leftward axis
- Abnormalities: ST abnormality, no ischemia, Left Ventricular Hypertrophy (LVH)
Disposition:
SUMMARY OF ENCOUNTER
The patient, a 69-year-old male, returned to the emergency department due to weakness experienced in the discharge lounge following a hospitalization for hematuria and urinary retention. During evaluation, atrial fibrillation with a rapid
ventricular response was identified. The bleeding from hematuria had been controlled, and urinary retention had improved with bladder irrigation treatment during his initial stay. Initial low blood pressure saw improvement with intervention.
DISPOSITION
Admit to hospitalist for further treatment.
ASSESSMENT
Atrial fibrillation with rapid ventricular response and recent hematuria, now controlled.
PLAN
Continue monitoring for atrial fibrillation; assess and adjust medication regimen to ensure compliance; ensure stability of vital signs and condition before final discharge from hospital.
INDEPENDENT REVIEW OF LABS AND INTERPRETATION OF TESTS
My independent review of EKG indicates atrial fibrillation with a rapid ventricular response.
MEDICAL DECISION MAKING
- Number and Complexity of Problems Addressed: Chronic conditions affecting care include atrial fibrillation and hematuria. Differential Diagnosis includes: Anemia secondary to hematuria, acute kidney injury due to urinary retention, medication
non-compliance effects, dehydration, electrolyte imbalance, cardiac arrhythmia complications, urinary tract infection, bladder outlet obstruction, constipation-related abdominal distress, vasovagal syncope, or orthostatic hypotension.
-Data:
Category 1
- My independent interpretation of the EKG indicates atrial fibrillation with rapid ventricular response.
-Risk: Prescription medication was prescribed. Consideration of Admission/Observation: Escalation of care including admission/observation was considered given the complexity and risk of the patients presenting complaint, exam findings, and/or their
underlying comorbidities.
DIAGNOSIS
- Atrial fibrillation with rapid ventricular response (I48.0)
- Hematuria (R31.9)
Past History
Past History
ED Past Medical History: Arrthythmia (RA), HTN and Other (adrenal tumor, Paige's disease, NATHEN, morbid obestity)
ED Past Surgical History: Other (adrenal tumor resection)
Social History
Tobacco: Non-smoker
Alcohol: None
Drug: None
Personal:
Living: with family
Employment: Employed
Family History
Family History: Other (Noncontributory)
Phy Exam
Physical Exam
Physical Exam:
.
Course
Orders/Labs/Results
Orders:
Orders
03/02/25 18:01
Electrocardiogram (*1) Urgent
Reason for Study: Syncope
EKG- Treatment ONCE
03/02/25 21:05
CR Chest Portable - 1 View Urgent
Comment:
Reason For Exam: weakness, short of breath
Reason Study Needs to be Portable: Patient Unstable
03/02/25 21:06
Cardiac Monitoring- Treatment ONCE
IV Insert/Care/Rem.- Treatment PRN
03/02/25 21:16
Complete Blood Count/With Diff Urgent
Comprehensive Metabolic Panel Urgent
NT-proBNP Urgent
Troponin I Urgent
03/02/25 22:42
0.9% Sodium Chloride 1000 ml [Nss] 1,000 ml IV BOLUS
03/02/25 23:23
Admit/Transfer Patient As Directed
Co-Sign Provider:
Level of Care: Inpatient admission
Assign to:: Telemetry
Physician / Group: Veldanda, Udaybhanu
Diagnosis: a-fib rvr, hypotension, hematuria
Reason for Telemetry: Arrhythmia
Date to Stop Telemetry: 03/05/25
Time to Stop Telemetry: 11:00
Reason for Hospitalization: a-fib rvr, hypotension, hematuria
Expected length of stay greater than two midnights?: Yes
ELOS- Estimated Length of Stay in days: 3
I certify the patient meets the requirements for IP care: Yes
PRN Pain Medication Management As Directed
May give lesser potent ordered pain med per pt: Yes
preference::
Protocol:: Medication orders for pain may be administered in a
manner that supports deferring to patient preference
when the pt is:
- Requesting an ordered lesser potent pain medication.
Least to most potent pain medications are defined
as: acetaminophen < NSAID < tramadol < opioids
(morphine, oxycodone, hydromorphone).
- Requesting a lesser dose of the same medication IF
ORDERED.
- Requesting a less intrusive route of administration
if both routes are prescribed by the provider (PO <
IV).
03/02/25 23:24
Code Status As Directed
Resuscitation Status: Full Code
03/05/25 11:00
DC Protocol for Telemetry ONCE
Abnormal Lab Results
03/02/25
21:16
WBC 11.8 H 10^3/uL
(4.8-10.8)
RBC 4.63 L 10^6/uL
(4.70-6.10)
Abs Immat Gran (auto) 0.2 H 10^3/uL
(0-0.05)
Absolute Neuts (auto) 8.6 H 10^3/uL
(1.4-6.5)
Absolute Monos (auto) 1.0 H 10^3/uL
(0.1-0.6)
Immature Gran % 1.6 H %
(0-0.5)
Lymphocytes % 15.1 L %
(20.5-51.1)
Sodium 134 L mmol/L
(135-145)
Glucose 104 H mg/dl
(70-99)
03/02/25 21:16
03/02/25 21:16
Vital Signs
Initial and Last Documented VS:
Initial Vital Signs
Temp Pulse Resp BP Pulse Ox
98.3 F 50 18 86/60 95
03/02/25 18:19 03/02/25 18:19 03/02/25 18:19 03/02/25 18:19 03/02/25 18:19
Last Documented Vital Signs
Temp Pulse Resp BP Pulse Ox
98.3 F 112 19 139/112 97
03/02/25 18:19 03/02/25 22:45 03/02/25 22:45 03/02/25 22:00 03/02/25 22:45
*Pulse Oximetry
SaO2: 98
Oxygen Mode of Delivery: Room air
Patient hypoxic: no
*Critical Care Note
Total Time (30-74mins, 75-104mins- exclusive of procedures): Not Applicable
ED Attending Note
-
Portions of this chart may have been created with voice recognition software.� Occasional wrong word or��sound alike� substitutions may have occurred due to the inherent limitations of voice recognition software.
Discharge Plan
Departure
Patient Disposition: Admit
Date of Disposition: 03/02/25
Time of Disposition: 22:42
Admit to: IMU
Presentation/result/management discussed w/ accepting MD/DO: Hospitalist
Patient with high blood pressure during this ER visit?: Yes
Condition: Fair
Discharge Problem:
Hematuria, Atrial fibrillation with rapid ventricular response
Prescriptions:
No Action
losartan 100 mg Tablet
100 mg PO DAILY Qty: 0 0RF
diltiazem HCl [Cardizem LA] 180 mg tablet extended release 24 hr
180 mg PO DAILY Qty: 30 0RF
methotrexate sodium 2.5 mg Tablet
7.5 mg PO TH
folic acid 1 mg Tablet
1 mg PO DAILY
hydroxychloroquine 200 mg Tablet
200 mg PO BID
doxycycline hyclate 100 mg Capsule
100 mg PO Q12 5 Days Qty: 10 0RF
tamsulosin 0.4 mg Capsule
0.8 mg PO DAILY 30 Days Qty: 60 0RF
warfarin [Jantoven] 10 mg tablet
5 mg PO HS 7 Days Qty: 7 0RF
Referrals:
Dionte Marcos MD [Family Provider, Family Practice]
Interventions
Interventions:
*Risk Screen - Suicide Last Done: 03/02/25 18:19
*General Assessment Last Done: 03/02/25 19:01
*Neglect/Abuse Screening Last Done: 03/02/25 19:01
*ED COVID-19 Vaccine History Last Done: 03/02/25 19:01
*ED Influenza Vaccine History Last Done: 03/02/25 19:01
[facility] Fall Risk Assessment Tool Last Done: 03/02/25 19:07
ED- Cardiac Assessment Last Done: 03/02/25 19:01
ED- Neurological Assessment Last Done: 03/02/25 19:01
Discharge Date and Time
Print Language: IVORIAN
[2025-03-02 21:00] VITALS: BP 125/98
[2025-03-02 21:27] LABS: Hematocrit 40.8 % (39.0-52.0); Hemoglobin 13.6 g/dL (13.0-18.0); Mean Corp Hgb Conc. 33.3 g/dL (33.0-37.0); Mean Corpuscular Volume 88.1 fL (80.0-94.0); Nucleated Red Blood Cells % 0 % (-); Platelet Count 168 10^3/uL (130-400); Red Cell Dist. Width 14.1 % (11.5-14.5)
[2025-03-02 21:54] LABS: ALT (SGPT) 18 U/L (0-50); AST (SGOT) 21 U/L (17-59); Albumin 4.3 g/dl (3.5-5.0); Alkaline Phosphatase 68 U/L (38-126); Blood Urea Nitrogen 20 mg/dl (9-20); Calcium 9.8 mg/dl (8.4-10.2); Carbon Dioxide 29 mmol/L (22-30); Chloride 100 mmol/L (98-107); Estimated Creatinine Clearance 95 ml/min; Glucose 104 mg/dl (70-99); Potassium 4.7 mmol/L (3.5-5.1); Sodium 134 mmol/L (135-145); Total Protein 7.3 g/dl (6.3-8.2); eGFR > 60.00
[2025-03-02 21:58] LABS: Troponin I 0.013 ng/ml
[2025-03-02 22:00] VITALS: BP 139/112
[2025-03-02] MEDS: NSS 1000 IV (22:55)
--- NOTE | 2025-03-02 22:56 | HPS.HSE ---
Addendum entered and electronically signed by Nayan Palmer MD 03/02/25 23:33:
This is an addendum to the H&P written by Rani Mckeon on 03/02/2025. �Patient seen examined independently with BATCH RECORDS CLERK.
69-year-old male past medical history of paroxysmal atrial fibrillation, rheumatoid arthritis on methotrexate, obstructive sleep apnea, hypertension, obesity, presenting for dizziness, palpitations and almost passing out 1 hour after being
discharged. �He also had penile bleeding from around the catheter.
Patient was recent admitted from 02/26 to today for abdominal discomfort, inability urinate or have bowel movement and hematuria with urinary retention. �He was given milk of molasses enema with improvement. �Patient underwent CBI with improvement
in hematuria but upon removal of Kelsey catheter had recurrent hematuria with eventual improvement and discharged with Kelsey catheter. �He was treated with doxycycline for UTI. �Coumadin was held and patient was started on Lovenox with plan to bridge
back to therapeutic Coumadin tomorrow.
Vital signs show initial blood pressure 86/60. �Heart rate up to 118. �Patient had bleeding around the Kelsey catheter. �Kelsey catheter was exchanged in the emergency room.
Labs show leukocytosis of 11.8. �Chest x-ray unremarkable.
Patient with symptomatic atrial fibrillation with RVR and near syncope secondary to hypotension. �Blood pressure and heart rate improving with IV fluids. �Continue IV fluids. Hold Losartan.� Cardiology consulted.
Patient with recurrent hematuria. �Kelsey catheter was exchanged. �Continue to hold anticoagulation. �Urology consulted.
Original Note:
Family Physician
-
Family Physician: Dionte Marcos
Chief Complaint
-
bleeding around catheter
History of Present Illness
Patient is a 69-year-old male with past medical history significant for Rheumatoid arthritis, paroxysmal atrial fibrillation, bone cancer of thumb, hypertension and NATHEN on CPAP who presented to [facility] ED for evaluation of bleeding around catheter.
Patient was discharged earlier today and waiting in discharge lounge when he felt like he may faint. He was found to be in a-fib and have hypotension. Patient states he currently feels like a-fib is improving after some fluids. He was hospitalized
for constipation and acute urinary retention, he was being discharged with Kelsey in place. Patient was bleeding around catheter and was changed in the ED. Denies any pain or discomfort.
Medical History
Past Medical History
Past Medical History: Reports Other
Additional Past Medical History:
Rheumatoid arthritis
paroxysmal atrial fibrillation
bone cancer of thumb
hypertension
NATHEN on CPAP
obesity
Past Surgical History: Reports Other
Additional Past Surgical History:
Cholecystectomy
Appendectomy
Right Thumb Bone Resection / Graft
Social History
Tobacco: Former Smoker (Quit smoking in .)
Alcohol: None
Drug: None
Personal:
Living: With Family
Employment: Retired
Family History
Family History: Not pertinent
Allergies / Home Medications
Allergies reflects when Allergies were last updated in [employer].
Home Medications with original date entered in [employer]
Allergy/Medication List:
Allergies
Allergy/AdvReac Type Severity Reaction Status Date / Time
theophylline Allergy Anaphylaxis Verified 03/02/25 18:18
Home Medications
losartan 100 mg tablet 100 mg PO DAILY Blood pressure #0 tabs 09/15/22
diltiazem HCl 180 mg tablet,extended release 24 hr (Cardizem LA) 180 mg PO DAILY #30 tabs 11/15/22
folic acid 1 mg tablet 1 mg PO DAILY 05/17/24
hydroxychloroquine 200 mg tablet 200 mg PO BID 05/17/24
methotrexate sodium 2.5 mg tablet 7.5 mg PO TH 05/17/24
doxycycline hyclate 100 mg capsule 100 mg PO Q12 5 days #10 caps 03/02/25
tamsulosin 0.4 mg capsule 0.8 mg (2 x 0.4 mg) PO DAILY 30 days #60 caps 03/02/25
warfarin 10 mg tablet (Jantoven) 5 mg (1/2 x 10 mg) PO HS 7 days #7 tabs 03/02/25
Review of Systems
-
History Source: Patient
Constitutional: Denies Fever or Chills
EENT: Denies Sore Throat
Respiratory: Denies Cough, Hemoptysis or Trouble Breathing
Cardiac: Reports Palpitations and Syncope (near syncope ); Denies Chest Pain or Diaphoresis
Abdomen/GI: Denies Abdominal Pain, Nausea, Vomiting or Diarrhea
: Reports Bleeding and Kelsey; Denies Dysuria, Frequency or Urgency
Musculoskeletal: Denies Joint Pain
Skin: Denies Rash
Neurological: Denies Dizzy
Endocrine: Denies Polyuria or Polydipsia
Physical Exam
Vital Signs
Vital Signs
Temp Pulse Resp BP Pulse Ox
98.3 F 116 12 98/51 98
03/02/25 18:19 03/02/25 20:30 03/02/25 20:30 03/02/25 20:00 03/02/25 21:00
Physical Exam
General: Well Developed, Well Nourished, No Apparent Distress, Comfortable, Conversant and Obese
HEENT: NormoCephalic, Moist mucous membranes, PERRLA, Nose Appears Normal and Ears Appear Normal
Respiratory: Clear and Non Labored Respirations; No Wheezes, Rales or Rhonchi
Cardiac: Irregular Rhythm and Tachycardia; No Murmur, Rub or Peripheral Edema
GI: Soft, Non Tender, Non Distended and Normal Bowel Sounds
Genito-urinary: Kelsey
Musculoskeletal: No Clubbing and No Cyanosis
Skin: Warm and IV/Catheter Site
Neuro: Awake and AO x 3
Hematologic/Lymphatic: No Lymphadenopathy
Psych: Calm and Intact Judgment/Insight
Laboratory Results
-
03/02/25 21:16
03/02/25 21:16
Laboratory Results
Total Bilirubin 0.8 mg/dl (0.2-1.3) 03/02/25 21:16
AST 21 U/L (17-59) 03/02/25 21:16
ALT 18 U/L (0-50) 03/02/25 21:16
Alkaline Phosphatase 68 U/L (38-126) 03/02/25 21:16
Troponin I 0.013 ng/ml 03/02/25 21:16
Data Reviewed
-
Ultrasound: Report Reviewed by me (BLLE Angelica Venous: No evidence of deep venous thrombosis of the lower extremities bilaterally. Right lower extremity without interval change.)
Lab Data: Labs Reviewed by me (WBC 11.8, hgb 13.6, hct 40.8 )
Impression/Plan
-
IMPRESSION/PLAN:
#near syncope and palpitations likely 2/2 a-fib RVR and hypotension
acute onset of feeling faint found to be in a-fib and hypotensive with bleeding around catheter
EKG: ATRIAL FIBRILLATION WITH RAPID VENTRICULAR RESPONSE
MINIMAL VOLTAGE CRITERIA FOR LVH, MAY BE NORMAL VARIANT ( R in aVL )
ST and T WAVE ABNORMALITY, CONSIDER LATERAL ISCHEMIA
- Admit to telemetry
- Consult Cardiology
- IVF NSS 100cc/hr
- hold hypertension medications
#bleeding around catheter site
#hematuria
hgb 13.6, hct 40.8
CXR: No acute cardiopulmonary process
- monitor output
- Consult Urology
- hold warfarin
#Rheumatoid arthritis
- continue hydroxychloroquine and methotrexate
#paroxysmal atrial fibrillation
- continue Diltazem
- hold warfarin in setting of bleeding
#hypertension
- hold losartan in setting of hypotension
#NATEHN
on CPAP HS
- continue CPAP HS
#obesity
- encourage balanced diet and exercise to promote weight loss
Code status: full code
DVT prophylaxis: SCDs
[2025-03-03] VITALS (9 sets, daily range): BP systolic 96–147; BP diastolic 50–88; PULSE 69; O2SAT 99; BMI 40.9
[2025-03-03] MEDS: NSS 1000 IV ×3 (00:46→22:42)
--- NOTE | 2025-03-03 01:10 | PTCARENOTE ---
Patient arrived from the ED via stretcher. Patient pulled over onto the bed by staff. AAOx3, VSS. Patient has blood/clots coming from tip of penis. Urine in tompkins bag is clear/yellow. No complaints of dizziness/light headedness. Patient oriented to
the room. Updated n plan of care. Call sandoval is within reach.
[2025-03-03] MEDS: TYLENOL 650 MG PO ×2 (06:10→20:36)
--- NOTE | 2025-03-03 06:12 | CON.MD ---
Consultation - Medical
-
see prev dictation and new dictation
pt admitted with retention and hematuria
failed TOV- tompkins replaced- discharged with cath
lovenox administered yesterday as coumadin bridge
went home briefly- returned to ER with sig bleeding around cath (urine clear) and weakness- rapid afib
stabilized in ER and admitted
pt feeling better
urine clear
has been on doxy
plan
continue tompkins
continue flomax
hold lovenox for now
continue doxy- recheck ucx
cardiology consult
Consultation
-
Date/Time Consultation Requested: 03/03/25 at midnight
Date/Time Consultation Performed: 03/03/25 at 6am
Requesting Provider: ER
Performing Provider: Dr Haywood
Reason for Consultation: hematuria
[2025-03-03 08:13] LABS: Hematocrit 34.8 % (39.0-52.0); Hemoglobin 11.8 g/dL (13.0-18.0); Mean Corp Hgb Conc. 33.9 g/dL (33.0-37.0); Mean Corpuscular Volume 87.2 fL (80.0-94.0); Platelet Count 141 10^3/uL (130-400); Red Cell Dist. Width 14.1 % (11.5-14.5)
[2025-03-03 08:24] LABS: Blood Urea Nitrogen 15 mg/dl (9-20); Calcium 8.9 mg/dl (8.4-10.2); Carbon Dioxide 28 mmol/L (22-30); Chloride 105 mmol/L (98-107); Estimated Creatinine Clearance 116 ml/min; Glucose 112 mg/dl (70-99); Potassium 4.0 mmol/L (3.5-5.1); Sodium 136 mmol/L (135-145); eGFR > 60.00
[2025-03-03] MEDS: FOLVITE 1 MG PO (08:50)
[2025-03-03] MEDS: PLAQUENIL 200 MG PO ×2 (08:50→20:36)
[2025-03-03] MEDS: FLOMAX 0.8 MG PO (08:50)
[2025-03-03] MEDS: VIBRAMYCIN 100 MG PO ×2 (08:50→20:36)
[2025-03-03] MEDS: CARDIZEM CD 180 MG PO (08:50)
--- NOTE | 2025-03-03 09:10 | CON.CAR ---
Addendum entered and electronically signed by Addison Sy MD 03/03/25 13:46:
I saw and evaluated the patient, and I provided the substantive portion of the medical decision making.
I reviewed and agree with the note by KAREN Simon and it accurately reflects our care.
I personally performed the medical decision making of the this encounter and my assessment and plan is below:
69-year-old male followed by Dr. Carrera in the past becoming Dr. Cid patient with a history of PAF on warfarin, mild aortic stenosis, morbid obesity with successful attempts for weight loss over the last year who was awaiting discharge
yesterday after admission for hematuria and urinary retention but developed acute onset shortness of breath and and dizziness. He was found to be in atrial fibrillation with rapid ventricular response. Symptoms resolved but with improvement to
normal sinus rhythm.
On exam, he is obese but in no apparent distress there is a mild expiratory wheeze at the base, regular rate and rhythm with a 1 out of 6 systolic murmur present (crescendo decrescendo) in the right upper sternal border, extremities without edema.
Ecg: AFIB with RVR cxr NO PULM EDEMA
Assessment:
Paroxysmal atrial fibrillation with RVR on admission now back in normal sinus rhythm.
-Diltiazem resumed, had missed several doses last admission. Will continue.
-Warfarin on hold in the setting of hematuria and urinary retention, when able per urology please resume. No need for a bridge. Would resume her typical dosing.
Hypertension
�Has lost nearly 30 pounds in 2024 with efforts of dietary changes.
- Would continue to hold losartan on discharge, I instructed him on obtaining a home blood pressure log. We can add back if needed as an outpatient. Continue diltiazem.
Aortic stenosis: Monitor over time, last echo 2022. Repeat as an outpatient.
No contraindication to discharge from a cardiovascular perspective.
Original Note:
Consultation
Consultation Request
Date/Time Consultation Requested: 03/03/257
Date/Time Consultation Performed: 12/4/25 0910
Requesting Provider: [employer] TEST ENGINEERING TECHNICIAN
Performing Provider: Rachel JONES for Dr. Sy
Reason for Consultation: AFIB with RVR
Medical History
-
Chief Complaint: near passing out
History of Present Illness:
69 y/o male (patient of Dr. Cid) with PAF on warfarin, mild aortic stenosis, RA, and NATHEN who was admitted from 02/26/25-03/02/25. He had hematuria and urinary retention. Warfarin was held and urology was consulted- he had CBI and improved. He
was d/c with tompkins with plan for resumption of warfarin. Also treated for UTI with abx. While waiting to leave hospital, he felt like he might pass out (dizzy/weak/palps) for about 5 minutes. It felt like his AFIB, but worse than usual. He was seen
to be in AFIB with RVR. He was sent to the ER. BP was low. He was given IV fluids. There was blood at catheter site and it was exchanged. He is back in SR and feeling improved. Of note, he had missed several doses of diltiazem during his recent
admission.
Past Medical History
Past Medical History: Arrhythmias, Valvular Disease and Other (as above)
Social History
Tobacco: Former Smoker
Family History
Family History: CAD (dad PR)
Allergies / Home Medications
Allergy/AdvReac Type Severity Reaction Status Date / Time
theophylline Allergy Anaphylaxis Verified 03/02/25 18:18
�Medication �Instructions �Recorded �Confirmed �Type
losartan 100 mg tablet 100 mg PO DAILY Blood pressure #0 09/15/22 03/02/25 Rx
tabs
diltiazem HCl 180 mg 180 mg PO DAILY #30 tabs 11/15/22 03/02/25 Rx
tablet,extended release 24 hr
(Cardizem LA)
folic acid 1 mg tablet 1 mg PO DAILY 05/17/24 03/02/25 History
hydroxychloroquine 200 mg tablet 200 mg PO BID 05/17/24 03/02/25 History
methotrexate sodium 2.5 mg tablet 7.5 mg PO TH 05/17/24 03/02/25 History
doxycycline hyclate 100 mg capsule 100 mg PO Q12 5 days #10 caps 03/02/25 03/02/25 Rx
tamsulosin 0.4 mg capsule 0.8 mg (2 x 0.4 mg) PO DAILY 30 03/02/25 03/02/25 Rx
days #60 caps
warfarin 10 mg tablet (Jantoven) 5 mg (1/2 x 10 mg) PO HS 7 days #7 03/02/25 03/02/25 Rx
tabs
Review of Systems
-
History Source: Patient and Other (and chart)
All other systems: Negative unless noted
Constitutional: Other (almost passing out, palps, weakness)
Physical Exam
Vital Signs
Temp Pulse Resp BP Pulse Ox
98.9 F 68 18 102/63 96
03/03/25 07:56 03/03/25 08:50 03/03/25 07:56 03/03/25 08:50 03/03/25 08:00
Lab Results
03/03/25 07:41
03/03/25 07:41
Troponin I 0.013 ng/ml 03/02/25 21:16
Cuy-D-Tkeatgzarad Pept 134 pg/ml 03/02/25 21:16
Physical Exam
General: Well Developed, Well Nourished and No Apparent Distress
HEENT: Normocephalic and Anicteric
Respiratory: Clear and Non Labored Respirations
Cardiac: Irregular Rhythm and Murmur (III/ systolic murmur)
Skin: Warm and Dry
Neuro: AO x 3
Psych: Calm
Impression / Plan
-
Urinary retention/recent hematuria/UTI:
-urology on the case
-urine clear in tompkins bag currently
-on abx
PAF:
-was in AFIB with RVR yesterday as noted in detail- was symptomatic. Given fluids and converted to SR overnight. In setting of acute illness and missed doses of diltiazem on recent admit.
-this AM, diltiazem was resumed- would continue
-resume warfarin when safe from urology standpoint
:
-mild 2022
-monitor with echo over time
HTN:
-BP on lower end, so ARB held. Continue CCB and monitor.
Data Reviewed
-
EKG: Tracing Personally Visualized and interpreted (AFIB with RVR 143 BPM)
Radiology: Report Reviewed by me (CXR: No acute cardiopulmonary process.)
Ultrasound: Report Reviewed by me (LE u/s: No evidence of deep venous thrombosis of the lower extremities bilaterally. Right lower extremity without interval change.)
Medical Tests (Nuc Med, Echo etc): Report Reviewed by me (echo 2023: normal EF, mild )
Labs: Labs Reviewed by me
--- NOTE | 2025-03-03 10:14 | VNURNOTE ---
Addendum entered by Jolene Trivedi RN 03/04/25 09:43:
Met with pt at bedside. He confirms that he will be off work for a little while d/t tompkins cath. He is agreeable to have [facility] as ordered prior admit. Referral accepted.
Original Note:
Chart reviewed. Patient DC'ed 03/02 and re-admitted within 24 hrs. Last admit, pt ordered VN. [facility] referral placed in [facility] for this admission.
--- NOTE | 2025-03-03 12:21 | W.PN.HOSP.TC ---
Today's Communication/Plan
-
resume coumadin tomorrow
PT recommended rehab
Assessment / Plan
Assessment / Plan
Physical Exam
General: Well Developed, Well Nourished, No Apparent Distress, Comfortable, Conversant and Obese
HEENT: NormoCephalic, Moist mucous membranes, PERRLA, Nose Appears Normal and Ears Appear Normal
Respiratory: Clear and Non Labored Respirations; No Wheezes, Rales or Rhonchi
Cardiac: Irregular Rhythm and Tachycardia; No Murmur, Rub or Peripheral Edema
GI: Soft, Non Tender, Non Distended and Normal Bowel Sounds
Genito-urinary: Kelsey, clear yellow urine
Musculoskeletal: No Clubbing and No Cyanosis
Skin: Warm and IV/Catheter Site
Neuro: Awake and AO x 3
Hematologic/Lymphatic: No Lymphadenopathy
Psych: Calm and Intact Judgment/Insight
#near syncope and palpitations likely 2/2 a-fib RVR and hypotension
acute onset of feeling faint found to be in a-fib and hypotensive
EKG: ATRIAL FIBRILLATION WITH RAPID VENTRICULAR RESPONSE
MINIMAL VOLTAGE CRITERIA FOR LVH, MAY BE NORMAL VARIANT ( R in aVL )
ST and T WAVE ABNORMALITY, CONSIDER LATERAL ISCHEMIA
- Admit to telemetry
- Cont CCB
-Hold losartan
-Improved symptoms post Fluids
#bleeding around catheter site
#hematuria
CXR: No acute cardiopulmonary process
-Resolved
- urology cleared for coumadin 03/04 - can start at regular dose 10mg qpm as per cards
-May have bleeding around catheter due to scarring
-stop coumadin if recurrent hematuria and inform cards, urology
#Rheumatoid arthritis
- continue hydroxychloroquine and methotrexate
#RLE pain
-lower foot pain
-missed RA infusion - may be related to this
-DVT negative previous admission
-F/u Rheum closely outpatient
-Tylenol preferred; NSAIDS prn if needed
#paroxysmal atrial fibrillation
- continue Diltazem
- resume Coumadin at home dose 03/04, confirmed with urology and cards
#hypertension
- hold losartan in setting of hypotension
-F/u outpt
#NATHEN
on CPAP HS
- continue CPAP HS
#obesity
- encourage balanced diet and exercise to promote weight loss
Code status: full code
DVT prophylaxis: SCDs
Anticipated Discharge: Within 24 hours
Subjective/Interval History
-
Date of Service: March 03, 2025
no hematuria. has pain right foot - near achilles tendon- chronic - missed infusion for RA
Sinus, normotensive
Objective Data
-
Labs:
Laboratory Results
03/03/25
07:41
WBC 8.8
Hgb 11.8 L
Hct 34.8 L
Plt Count 141
Sodium 136
Potassium 4.0
Chloride 105
Carbon Dioxide 28
BUN 15
Creatinine 0.9
Glucose 112 H
Calcium 8.9
Vital Signs:
Vital Signs
Temp Pulse Resp BP Pulse Ox
98.3 F 66 18 129/70 98
03/03/25 11:13 03/03/25 11:13 03/03/25 11:13 03/03/25 11:13 03/03/25 11:13
I&O
03/02/25 03/03/25 03/04/25
06:59 06:59 06:59
Intake Total 1180 / 1180
Output Total 425 / 425
Balance 755 / 755
Review of Systems
-
History Source: Patient
All other systems: Not reviewed unless documented
Physical Exam
-
General: Comfortable
Respiratory: Non Labored Respirations; Negative Accessory Resp Muscle Use
Cardiac: Regular Rhythm, S1/S2 and Murmur; Negative Tachycardic
GI: Soft and Nontender
Genito-urinary: No Costovertebral Tender and Kelsey (dark yellow urine)
Musculoskeletal: Edema, Right Lower Extrem and Edema, Left Lower Extrem
Neuro: AO x 3
Psych: Calm
Data Reviewed
-
CT Scan: Report Reviewed by me
Ultrasound: Report Reviewed by me
Labs: Labs Reviewed by me
[2025-03-03] MEDS: LR 1000 IV (13:48)
--- NOTE | 2025-03-03 14:46 | CM ---
Met pt and son bedside. IA completed. Lives in a 2 story home with his and son. There is 2 steps at the entrance to the home and 13 steps to the 2nd floor. Full BR is on the second floor. No hx of DME, home O2,SNF. No insecurities identified.
Confirmed PCP, Rx, insurance and drug coverage.
Pt is employed
Pt is current with [facility]; they have not made their 1st visit yet because the pt is a readmission from yesterday.
PT recommended SNF. Pt is refusing all PT at this time. He wants to have his infusion for his rheumatoid arthritis first to see if that works.
PCP: Dionte Marcos
Rx: [facility]
Plan: home with [facility]
[2025-03-04] MEDS: TYLENOL 650 MG PO (02:39)
[2025-03-04 03:50] VITALS: BP 116/58
[2025-03-04 07:00] VITALS: BP 134/72
[2025-03-04] MEDS: FLOMAX 0.8 MG PO (08:11)
[2025-03-04] MEDS: VIBRAMYCIN 100 MG PO (08:11)
[2025-03-04] MEDS: FOLVITE 1 MG PO (08:11)
[2025-03-04] MEDS: PLAQUENIL 200 MG PO (08:11)
[2025-03-04] MEDS: CARDIZEM CD 180 MG PO (08:12)
[2025-03-04] MEDS: NSS 1000 IV (08:14)
[2025-03-04 09:29] LABS: Hematocrit 36.1 % (39.0-52.0); Hemoglobin 11.7 g/dL (13.0-18.0); Mean Corp Hgb Conc. 32.4 g/dL (33.0-37.0); Mean Corpuscular Volume 90.0 fL (80.0-94.0); Platelet Count 127 10^3/uL (130-400); Red Cell Dist. Width 14.3 % (11.5-14.5)
[2025-03-04 09:58] LABS: Blood Urea Nitrogen 9 mg/dl (9-20); Calcium 9.0 mg/dl (8.4-10.2); Carbon Dioxide 30 mmol/L (22-30); Chloride 102 mmol/L (98-107); Estimated Creatinine Clearance 116 ml/min; Glucose 106 mg/dl (70-99); Potassium 3.9 mmol/L (3.5-5.1); Sodium 135 mmol/L (135-145); eGFR > 60.00
[2025-03-04] MEDS: MOTRIN 800 MG PO (10:33)
--- NOTE | 2025-03-04 10:44 | CM ---
Met with pt bedside.
Probable DC today with [facility] in place
IMM given and placed on chart
Son will transport pt home
Plan: DC to home with [facility]
[2025-03-04 11:00] VITALS: BP 139/82
--- NOTE | 2025-03-04 12:10 | W.PN.HOSP.TC ---
Addendum entered and electronically signed by Preston Norris MD 03/06/25 14:45:
Yes, Hematuria is related to/associated with/exacerbated by Coumadin.
Addendum entered and electronically signed by Preston Norris MD 03/06/25 14:45:
Yes, Hematuria is related to/associated with/exacerbated by Coumadin.
No, Hematuria is not related to/associated with/exacerbated by Coumdi
Addendum entered and electronically signed by Preston Norris MD 03/04/25 16:36:
[id number]
Original Note:
Today's Communication/Plan
-
abx course
coumadin restarting tonight
f/u urology, cards, pcp, rheum outpt
refusing rehab
Assessment / Plan
Assessment / Plan
Physical Exam
General: Well Developed, Well Nourished, No Apparent Distress, Comfortable, Conversant and Obese
HEENT: NormoCephalic, Moist mucous membranes, PERRLA, Nose Appears Normal and Ears Appear Normal
Respiratory: Clear and Non Labored Respirations; No Wheezes, Rales or Rhonchi
Cardiac: Irregular Rhythm and Tachycardia; No Murmur, Rub or Peripheral Edema
GI: Soft, Non Tender, Non Distended and Normal Bowel Sounds
Genito-urinary: Kelsey, clear yellow urine
Musculoskeletal: No Clubbing and No Cyanosis
Skin: Warm and IV/Catheter Site
Neuro: Awake and AO x 3
Hematologic/Lymphatic: No Lymphadenopathy
Psych: Calm and Intact Judgment/Insight
#near syncope and palpitations likely 2/2 a-fib RVR and hypotension
acute onset of feeling faint found to be in a-fib and hypotensive
EKG: ATRIAL FIBRILLATION WITH RAPID VENTRICULAR RESPONSE
MINIMAL VOLTAGE CRITERIA FOR LVH, MAY BE NORMAL VARIANT ( R in aVL )
ST and T WAVE ABNORMALITY, CONSIDER LATERAL ISCHEMIA
- Admit to telemetry
- Cont CCB
-Hold losartan
-Improved symptoms post Fluids
#bleeding around catheter site
#hematuria
CXR: No acute cardiopulmonary process
-Resolved
- urology cleared for coumadin 03/04 - can start at regular dose 10mg qpm as per cards
-May have bleeding around catheter due to scarring
-stop coumadin if recurrent hematuria and inform cards, urology
#Rheumatoid arthritis
- continue hydroxychloroquine and methotrexate
#RLE pain
-lower foot pain, non tender, non erythematous - improved today
-missed RA infusion - may be related to this
-CT imaging negative for acute pathology
-MRI outpt if needed
-DVT negative previous admission
-F/u Rheum closely outpatient
-Tylenol preferred; NSAIDS prn if needed
#paroxysmal atrial fibrillation
- continue Diltazem
- resume Coumadin at home dose 03/04, confirmed with urology and cards
#hypertension
- hold losartan in setting of hypotension
-F/u outpt
#NATHEN
on CPAP HS
- continue CPAP HS
#obesity
- encourage balanced diet and exercise to promote weight loss
Code status: full code
DVT prophylaxis: SCDs
More than 30 minutes spent in discharge including
Final examination of the patient
Summarizing hospital stay
Instructions for continuing care to all relevant caregivers
Preparation of discharge records, prescriptions, and referral forms
Total time spent (in minutes): 36
Anticipated Discharge: Today
Subjective/Interval History
-
Date of Service: March 04, 2025
no acute events overnight, leg pain improved
Objective Data
-
Labs:
Laboratory Results
03/04/25
09:06
WBC 8.0
Hgb 11.7 L
Hct 36.1 L
Plt Count 127 L
Sodium 135
Potassium 3.9
Chloride 102
Carbon Dioxide 30
BUN 9
Creatinine 0.9
Glucose 106 H
Calcium 9.0
Vital Signs:
Vital Signs
Temp Pulse Resp BP Pulse Ox
98.3 F 78 16 139/82 97
03/04/25 11:00 03/04/25 11:00 03/04/25 11:00 03/04/25 11:00 03/04/25 11:00
I&O
03/03/25 03/04/25 03/05/25
06:59 06:59 06:59
Intake Total 1180 / 1180 3860 / 3860
Output Total 425 / 425 3925 / 3925 675 / 675
Balance 755 / 755 -65 / -65 -675 / -675
Review of Systems
-
History Source: Patient
All other systems: Not reviewed unless documented
Data Reviewed
-
CT Scan: Report Reviewed by me
Ultrasound: Report Reviewed by me
Labs: Labs Reviewed by me
--- NOTE | 2025-03-04 12:13 | W.DS.TRANS ---
DC Summary - Plush [employer]
-
Discharge Instructions:
Discharge Diagnosis/Procedures Urinary Retention
Paroxysmal Atrial Fibrillation
RLE Pain
Diet Low Cholesterol,Low Fat
Activity As tolerated
Blood Work cbc and cmp in 1 week
Others Tests leg imaging as per pcp/rheumatology
Instructions:
Stand-Alone Forms:
Changes to Home Medications: Yes
Discharge Medications:
DC Medications w/original date entered in [email or web address]
losartan 100 mg tablet 100 mg PO DAILY Blood pressure #0 tabs 09/15/22
Held on 03/03/25. Instructions: Resume on 03/24/25. until cleared by pcp/cardiology
diltiazem HCl 180 mg tablet,extended release 24 hr (Cardizem LA) 180 mg PO DAILY #30 tabs 11/15/22
folic acid 1 mg tablet 1 mg PO DAILY Supplement 05/17/24
hydroxychloroquine 200 mg tablet 200 mg PO BID Rheumatoid arthritis 05/17/24
methotrexate sodium 2.5 mg tablet 7.5 mg PO TH rheumatoid arthritis 05/17/24
tamsulosin 0.4 mg capsule 0.8 mg (2 x 0.4 mg) PO DAILY 30 days #60 caps 03/02/25
acetaminophen 325 mg tablet 650 mg (2 x 325 mg) PO Q4HPRN PRN mild pain/MONTALVO/temp>100.5 #90 tabs 03/03/25
doxycycline hyclate 100 mg capsule 100 mg PO Q12 4 days #10 caps 03/04/25
warfarin 10 mg tablet (Jantoven) 10 mg PO HS 7 days #7 tabs 03/04/25
Home Medication Changes
acetaminophen 325 mg tablet 650 mg (2 x 325 mg) PO Q4HPRN PRN mild pain/MONTALVO/temp>100.5 #90 tabs 03/03/25
doxycycline hyclate 100 mg capsule 100 mg PO Q12 4 days #10 caps 03/04/25
warfarin 10 mg tablet (Jantoven) 10 mg PO HS 7 days #7 tabs 03/04/25
Pending Results: No
== END 2025-03-04 13:43 | disposition home or self-care (01) | DRG 309 ==
LOC: 4 EAST ACU 23:38
PROVIDERS: Nurse Practitioner Family; ADMITTING PHYSICIAN Hospitalist; ATTENDING PHYSICIAN Internal Medicine; CONSULT PHYSICIAN Specialist; EMERGENCY PHYSICIAN Emergency Medicine; FAMILY PHYSICIAN Family Medicine; OTHER PHYSICIAN Internal Medicine Cardiovascular Disease
DX: I48.0 Paroxysmal atrial fibrillation (principal); D68.32 Hemorrhagic disorder due to extrinsic circulating anticoagulants; Z68.41 Body mass index [BMI] 40.0-44.9, adult; N39.0 Urinary tract infection, site not specified; Z79.631 Long term (current) use of antimetabolite agent; M06.9 Rheumatoid arthritis, unspecified; Z87.891 Personal history of nicotine dependence; I10 Essential (primary) hypertension; G47.33 Obstructive sleep apnea (adult) (pediatric); E66.9 Obesity, unspecified; Z79.01 Long term (current) use of anticoagulants; Z79.899 Other long term (current) drug therapy
CPT/HCPCS: 71045; 73700; 80048; 80053; 83880; 84484; 85025; 85027; 87086; 93005; 96360; 97163; 99285

== ENCOUNTER 2025-03-11 10:51 | Emergency (ER) | payer MEDICARE, OTHER, SELFPAY ==
[2025-03-11 10:55] VITALS: BP 112/70
[2025-03-11 12:03] VITALS: BMI 41.1
[2025-03-11 12:40] LABS: Hematocrit 40.2 % (39.0-52.0); Hemoglobin 13.1 g/dL (13.0-18.0); Mean Corp Hgb Conc. 32.6 g/dL (33.0-37.0); Mean Corpuscular Volume 91.6 fL (80.0-94.0); Nucleated Red Blood Cells % 0 % (-); Platelet Count 203 10^3/uL (130-400); Red Cell Dist. Width 14.5 % (11.5-14.5)
--- NOTE | 2025-03-11 12:43 | ED.GENMED ---
History of Present Illness
General
Chief Complaint: Heart Rate Problem
Source: patient
Exam Limitations: none
Time Seen by Provider: 03/11/25 12:22
History of Present Illness
History of Present Illness:
69-year-old male presents complaining of lightheadedness and near syncope. There is no associated chest pain or headache with this. This is going on for the past 2 to 3 days. He actually states at the time of my exam that he is feeling better.
No recent fever. He was here last week for rapid A-fib and also developed hematuria. He had a catheter that was removed 2 days ago. He notes no further bleeding. He is on Coumadin. He denies any dark or tarry stools. No other complaints at
this time
Past History
Past History
ED Past Medical History: Arrthythmia (RA), HTN and Other (adrenal tumor, [place]'s disease, NATHEN, morbid obestity)
ED Past Surgical History: Other (adrenal tumor resection)
Social History
Tobacco: Non-smoker
Alcohol: None
Drug: None
Personal:
Living: with family
Employment: Employed
Family History
Family History: Other (Noncontributory)
Phy Exam
Physical Exam
Physical Exam:
General: Well-appearing male no acute respiratory distress
HEENT: Normal cephalic atraumatic
Lungs: Clear no wheeze
Heart: Regular rate and rhythm
Abdomen is soft nontender nondistended
Extremities: No cyanosis
Course
Orders/Labs/Results
Orders:
Orders
03/11/25 10:59
ECG [Electrocardiogram (*1)] Urgent
Reason for Study: Atrial Fibrillation
EKG- Treatment ONCE
03/11/25 12:26
Complete Blood Count/With Diff Urgent
Comprehensive Metabolic Panel Urgent
INR [Prothrombin Time] Urgent
Troponin I Urgent
03/11/25 12:39
Orthostatic VS- Treatment ONCE
03/11/25 13:39
0.9% Sodium Chloride 1000 ml [Nss] 1,000 ml IV BOLUS
Abnormal Lab Results
03/11/25
12:26
RBC 4.39 L 10^6/uL
(4.70-6.10)
MCHC 32.6 L g/dL
(33.0-37.0)
Abs Immat Gran (auto) 0.3 H 10^3/uL
(0-0.05)
Absolute Monos (auto) 0.7 H 10^3/uL
(0.1-0.6)
Immature Gran % 3.3 H %
(0-0.5)
Lymphocytes % 20.4 L %
(20.5-51.1)
PT 18.0 H Sec
(11.4-14.6)
BUN 22 H mg/dl
(9-20)
03/11/25 12:26
03/11/25 12:26
Vital Signs
Initial and Last Documented VS:
Initial Vital Signs
Temp Pulse Resp BP Pulse Ox
97.8 F 66 18 112/70 100
03/11/25 10:55 03/11/25 10:55 03/11/25 10:55 03/11/25 10:55 03/11/25 10:55
Last Documented Vital Signs
Temp Pulse Resp BP Pulse Ox
97.8 F 75 10 99/73 99
03/11/25 10:55 03/11/25 13:30 03/11/25 13:30 03/11/25 13:30 03/11/25 13:30
MDM/Problems Addressed
Differential Diagnosis Includes:
Patient with lightheadedness. Consider arrhythmia versus anemia versus dehydration versus orthostatic hypotension
EKG shows sinus rhythm without ischemic changes. Patient currently on monitor and not in A-fib. Will check INR and blood work. Orthostatics pending.
*Pulse Oximetry
SaO2: 100
Oxygen Mode of Delivery: Room air
Patient hypoxic: no
*Critical Care Note
Total Time (30-74mins, 75-104mins- exclusive of procedures): Not Applicable
Update Note
Update Note:
INR 1.47. Hemoglobin 13. No arrhythmias on the monitor. Blood pressure dropped slightly upon standing he was given a liter of fluid he is feeling better. I suspect overall deconditioning from recent hospitalization with volume depletion. No
indication for admission. Stable for discharge
ED Attending Note
-
Portions of this chart may have been created with voice recognition software.� Occasional wrong word or��sound alike� substitutions may have occurred due to the inherent limitations of voice recognition software.
Discharge Plan
Departure
Patient Disposition: Home (Routine Discharge)
Date of Disposition: 03/11/25
Time of Disposition: 14:32
Patient with high blood pressure during this ER visit?: No
Discharge Problem:
Lightheadedness
Instructions: Palpitations (DC)
Prescriptions:
No Action
losartan 100 mg Tablet
100 mg PO DAILY Qty: 0 0RF
diltiazem HCl [Cardizem LA] 180 mg tablet extended release 24 hr
180 mg PO DAILY Qty: 30 0RF
methotrexate sodium 2.5 mg Tablet
7.5 mg PO TH
folic acid 1 mg Tablet
1 mg PO DAILY
hydroxychloroquine 200 mg Tablet
200 mg PO BID
tamsulosin 0.4 mg Capsule
0.8 mg PO DAILY 30 Days Qty: 60 0RF
acetaminophen 325 mg Tablet
650 mg PO Q4HPRN PRN (Reason: mild pain/MONTALVO/temp>100.5) Qty: 90 0RF
doxycycline hyclate 100 mg Capsule
100 mg PO Q12 4 Days Qty: 10 0RF
Rx Instructions:
UTI, ordered for 5 day course starting 03/02/25
warfarin [Jantoven] 10 mg tablet
10 mg PO HS 7 Days Qty: 7 0RF
Referrals:
UNKNOWN - PT NOT,INTERVIEWE [Family Provider]
Activity Restrictions/Additional Instructions:
Rest. Stay hydrated. Return if worse otherwise follow-up with your doctor.
Interventions
Interventions:
*Risk Screen - Suicide Last Done: 03/11/25 10:55
*ED Influenza Vaccine History Last Done: 03/11/25 10:55
ED- Cardiac Assessment Last Done: 03/11/25 12:23
Discharge Date and Time
Print Language: SOUTH AFRICAN
[2025-03-11 12:53] LABS: ALT (SGPT) 26 U/L (0-50); AST (SGOT) 20 U/L (17-59); Albumin 3.8 g/dl (3.5-5.0); Alkaline Phosphatase 47 U/L (38-126); Blood Urea Nitrogen 22 mg/dl (9-20); Calcium 9.1 mg/dl (8.4-10.2); Carbon Dioxide 29 mmol/L (22-30); Chloride 102 mmol/L (98-107); Estimated Creatinine Clearance 95 ml/min; Glucose 91 mg/dl (70-99); Potassium 4.5 mmol/L (3.5-5.1); Sodium 136 mmol/L (135-145); Total Protein 6.6 g/dl (6.3-8.2); eGFR > 60.00
[2025-03-11 12:56] LABS: INR 1.47; PT 18.0 Sec (11.4-14.6)
[2025-03-11 13:17] LABS: Troponin I < 0.012 ng/ml
[2025-03-11 13:26] VITALS: BP 105/61
[2025-03-11 13:28] VITALS: BP 100/66
[2025-03-11 13:30] VITALS: BP 99/73
[2025-03-11 13:32] VITALS: BP 100/66; BP 105/61; BP 99/73; PULSE 53; PULSE 61; PULSE 76
[2025-03-11] MEDS: NSS 1000 IV (13:55)
== END 2025-03-11 15:04 | disposition home or self-care (01) ==
LOC: EMR 10:51
PROVIDERS: EMERGENCY PHYSICIAN Emergency Medicine
DX: R42 Dizziness and giddiness (principal); I48.91 Unspecified atrial fibrillation; I10 Essential (primary) hypertension; G47.33 Obstructive sleep apnea (adult) (pediatric); E66.01 Morbid (severe) obesity due to excess calories; Z68.41 Body mass index [BMI] 40.0-44.9, adult; Z79.01 Long term (current) use of anticoagulants
CPT/HCPCS: 99284; 96360; 80053; 84484; 85025; 85610; 93005

== ENCOUNTER 2025-03-15 21:46 | Emergency (ER) | payer MEDICARE, OTHER, SELFPAY ==
[2025-03-15 21:48] VITALS: BP 180/102
[2025-03-15 22:14] LABS: Hematocrit 37.7 % (39.0-52.0); Hemoglobin 12.4 g/dL (13.0-18.0); Mean Corp Hgb Conc. 32.9 g/dL (33.0-37.0); Mean Corpuscular Volume 90.4 fL (80.0-94.0); Nucleated Red Blood Cells % 0 % (-); Platelet Count 151 10^3/uL (130-400); Red Cell Dist. Width 14.9 % (11.5-14.5)
[2025-03-15 22:21] LABS: INR 1.76; PT 20.7 Sec (11.4-14.6)
[2025-03-15 22:36] LABS: ALT (SGPT) 21 U/L (0-50); AST (SGOT) 21 U/L (17-59); Albumin 4.1 g/dl (3.5-5.0); Alkaline Phosphatase 60 U/L (38-126); Blood Urea Nitrogen 16 mg/dl (9-20); Calcium 9.4 mg/dl (8.4-10.2); Carbon Dioxide 27 mmol/L (22-30); Chloride 103 mmol/L (98-107); Glucose 97 mg/dl (70-99); Potassium 4.1 mmol/L (3.5-5.1); Sodium 135 mmol/L (135-145); Total Protein 7.0 g/dl (6.3-8.2); eGFR > 60.00
[2025-03-16 03:37] VITALS: BMI 42.2
[2025-03-16 03:40] VITALS: BP 117/67
[2025-03-16 04:00] VITALS: BP 121/62
--- NOTE | 2025-03-16 04:12 | ED.GENMED ---
History of Present Illness
<Daly Hernandez PA-C - Last Filed: 03/16/25 08:29>
General
Chief Complaint: Catheter/Tube Problem
Source: patient
Exam Limitations: none
Time Seen by Provider: 03/16/25 04:10
Nursing documentation reviewed up to this point in time: agreed with
History of Present Illness
History of Present Illness:
69-year-old male with a past medical history of A-fib on Coumadin and diltiazem, sleep apnea, BPH and urinary retention, presents to ER today with concerns of hua hematuria for the past day. He reports that this started last week and resolved but
then started up again this morning. He reports that he would start a urinary stream and at the end of stream, he would have a lot of bloody urine and bleeding. He had started to have to wear menstrual pads as sometimes he would bleed from the
penis spontaneously. He reports that occasionally, he will pass a clot in his urine. He denies any dizziness or lightheadedness, denies any syncopal episodes. He follows with Dr. Claros as an outpatient. He denies any pelvic pain. He denies
any abdominal pain. He denies any fevers or chills or burning with urination. He was recently hospitalized and had acute urinary retention and later went into A-fib and was started on Coumadin and started to have bleeding. Patient states that he
has not been retaining urine and reports that he has been urinating normally.
Past History
<Daly Hernandez PA-C - Last Filed: 03/16/25 08:29>
Past History
ED Past Medical History: Arrthythmia (RA), HTN and Other (adrenal tumor, [place]'s disease, NATHEN, morbid obestity)
ED Past Surgical History: Other (adrenal tumor resection)
Social History
Tobacco: Non-smoker
Alcohol: None
Drug: None
Personal:
Living: with family
Employment: Employed
Family History
Family History: Other (Noncontributory)
Review of Systems
<Daly Hernandez PA-C - Last Filed: 03/16/25 08:29>
Review of Systems
All Other Systems: ROS reviewed and negative except as documented in HPI and ROS
Phy Exam
<Daly Hernandez PA-C - Last Filed: 03/16/25 08:29>
Physical Exam
Physical Exam:
General: Patient is well appearing and in no acute distress; non-toxic
Skin: Warm and dry, no rashes or lesions
Head: Normocephalic, atraumatic
Eyes: Sclera non-icteric. EOMs intact.
Cardiac: Regular rate and rhythm, no murmurs
Peripheral Vascular: No lower extremity swelling or edema
Pulm: Normal respiratory effort, no wheezes, rales, rhonchi
Abdomen: No abdominal tenderness to palpation
Neuro: CN II-XII intact, no focal neurologic deficits.
Psychiatric: Appropriate mood and affect.
Course
<Daly Hernandez PA-C - Last Filed: 03/16/25 08:29>
Orders/Labs/Results
Orders:
Orders
03/15/25 21:59
Complete Blood Count/With Diff Urgent
Comprehensive Metabolic Panel Urgent
PT/INR [Prothrombin Time] Urgent
03/16/25 04:58
Urinalysis Reflex To Culture Urgent
Date Specimen was Collected: 03/16/25
Time Specimen was Collected: 04:55
03/16/25 05:02
Catheter [Kelsey Placement- Treatment] ONCE
Reason for insertion: Acute Retention
03/16/25 06:54
UROLOGY CONSULT Urgent
Consulting Provider: Scott Gregorio
Was physician already notified: Yes
Abnormal Lab Results
03/15/25
21:59
RBC 4.17 L 10^6/uL
(4.70-6.10)
Hgb 12.4 L g/dL
(13.0-18.0)
Hct 37.7 L %
(39.0-52.0)
MCHC 32.9 L g/dL
(33.0-37.0)
RDW 14.9 H %
(11.5-14.5)
Abs Immat Gran (auto) 0.1 H 10^3/uL
(0-0.05)
Absolute Monos (auto) 0.7 H 10^3/uL
(0.1-0.6)
Immature Gran % 0.9 H %
(0-0.5)
Monocytes % 10.1 H %
(1.7-9.3)
PT 20.7 H Sec
(11.4-14.6)
03/15/25 21:59
03/15/25 21:59
Vital Signs
Initial and Last Documented VS:
Initial Vital Signs
Temp Pulse Resp BP Pulse Ox
98.7 F 74 20 180/102 100
03/15/25 21:48 03/15/25 21:48 03/15/25 21:48 03/15/25 21:48 03/15/25 21:48
Last Documented Vital Signs
Temp Pulse Resp BP Pulse Ox
98.2 F 56 18 133/76 97
03/16/25 08:17 03/16/25 08:17 03/16/25 08:17 03/16/25 08:17 03/16/25 08:17
Maribellt;Robert Taylor PA-C - Last Filed: 03/16/25 07:38>
Orders/Labs/Results
Orders:
Orders
03/15/25 21:59
Complete Blood Count/With Diff Urgent
Comprehensive Metabolic Panel Urgent
PT/INR [Prothrombin Time] Urgent
03/16/25 04:58
Urinalysis Reflex To Culture Urgent
Date Specimen was Collected: 03/16/25
Time Specimen was Collected: 04:55
03/16/25 05:02
Catheter [Kelsey Placement- Treatment] ONCE
Reason for insertion: Acute Retention
03/16/25 06:54
UROLOGY CONSULT Urgent
Consulting Provider: Scott Gregorio
Was physician already notified: Yes
Abnormal Lab Results
03/15/25
21:59
RBC 4.17 L 10^6/uL
(4.70-6.10)
Hgb 12.4 L g/dL
(13.0-18.0)
Hct 37.7 L %
(39.0-52.0)
MCHC 32.9 L g/dL
(33.0-37.0)
RDW 14.9 H %
(11.5-14.5)
Abs Immat Gran (auto) 0.1 H 10^3/uL
(0-0.05)
Absolute Monos (auto) 0.7 H 10^3/uL
(0.1-0.6)
Immature Gran % 0.9 H %
(0-0.5)
Monocytes % 10.1 H %
(1.7-9.3)
PT 20.7 H Sec
(11.4-14.6)
03/15/25 21:59
03/15/25 21:59
Vital Signs
Initial and Last Documented VS:
Initial Vital Signs
Temp Pulse Resp BP Pulse Ox
98.7 F 74 20 180/102 100
03/15/25 21:48 03/15/25 21:48 03/15/25 21:48 03/15/25 21:48 03/15/25 21:48
Last Documented Vital Signs
Temp Pulse Resp BP Pulse Ox
98.2 F 56 18 133/76 97
03/16/25 08:17 03/16/25 08:17 03/16/25 08:17 03/16/25 08:17 03/16/25 08:17
<Daly Hernandez PA-C - Last Filed: 03/16/25 08:29>
MDM/Problems Addressed
Differential Diagnosis Includes:
Differentials include spontaneous urinary tract bleeding from Coumadin, urinary tract infection, renal failure,
MDM/Problems Addressed:
69-year-old male presents to the ER today with concerns of hua hematuria. This has since resolved while in the ER. A Kelsey was placed and he was irrigated with drainage of yellow urine with no clear blood. However, within his underwear, he does
have a lot of blood on a menstrual pad. I spoke to Dr. Gregorio on-call for urology who evaluated patient at bedside. Case signed out to MARIBEL Melo pending urology plan
Chronic conditions affecting care:
A-fib on Eliquis, hypertension, hyperlipidemia,
<Daly Hernandez PA-C - Last Filed: 03/16/25 08:29>
*Pulse Oximetry
SaO2: 99
Patient hypoxic: no
*Critical Care Note
Total Time (30-74mins, 75-104mins- exclusive of procedures): Not Applicable
<Robert Taylor PA-C - Last Filed: 03/16/25 07:38>
Update Note
Update Note:
Received care of patient upon signout pending urology consult. Urology to see patient. Urine is clear. Patient has Kelsey catheter in. Urology recommends to hold Coumadin for 5 days. He will follow-up with Dr. Claros in the office.
ED Attending Note
<Daly Hernandez PA-C - Last Filed: 03/16/25 08:29>
-
Portions of this chart may have been created with voice recognition software.� Occasional wrong word or��sound alike� substitutions may have occurred due to the inherent limitations of voice recognition software.
Discharge Plan
Departure
Patient Disposition: Home (Routine Discharge)
Date of Disposition: 03/16/25
Time of Disposition: 07:37
Patient with high blood pressure during this ER visit?: No
Discharge Problem:
Hematuria
Instructions: How to Care for Your Kelsey Catheter, Male
Prescriptions:
No Action
losartan 100 mg Tablet
100 mg PO DAILY Qty: 0 0RF
diltiazem HCl [Cardizem LA] 180 mg tablet extended release 24 hr
180 mg PO DAILY Qty: 30 0RF
methotrexate sodium 2.5 mg Tablet
7.5 mg PO TH
folic acid 1 mg Tablet
1 mg PO DAILY
hydroxychloroquine 200 mg Tablet
200 mg PO BID
tamsulosin 0.4 mg Capsule
0.8 mg PO DAILY 30 Days Qty: 60 0RF
acetaminophen 325 mg Tablet
650 mg PO Q4HPRN PRN (Reason: mild pain/MONTALVO/temp>100.5) Qty: 90 0RF
doxycycline hyclate 100 mg Capsule
100 mg PO Q12 4 Days Qty: 10 0RF
Rx Instructions:
UTI, ordered for 5 day course starting 03/02/25
warfarin [Jantoven] 10 mg tablet
10 mg PO HS 7 Days Qty: 7 0RF
Referrals:
Dionte Marcos MD [Family Provider, Family Practice]
Activity Restrictions/Additional Instructions:
Please follow-up with urology next week. Do not take your Coumadin for 5 days as per urology. Return if needed otherwise
Interventions
Interventions:
*General Assessment Last Done: 03/15/25 21:48
*Neglect/Abuse Screening Last Done: 03/15/25 21:48
*ED COVID-19 Vaccine History Last Done: 03/15/25 21:48
*ED Influenza Vaccine History Last Done: 03/15/25 21:48
[facility] Risk Assessment Tool Last Done: 03/16/25 03:37
*Risk Screen - Suicide (C-SSRS) Last Done: 03/15/25 21:53
*Nursing Disposition Last Done: 03/16/25 08:17
KP-Jipwsu-Rlqiuoerbu Assessment Last Done: 03/16/25 03:41
ED-Male Genitourinary Assessment Last Done: 03/16/25 03:41
Discharge Date and Time
Print Language: FRENCH
[2025-03-16 05:00] VITALS: BP 140/71
[2025-03-16 06:00] VITALS: BP 125/68
[2025-03-16 06:29] LABS: Urine Character Clear (Clear)
[2025-03-16 07:00] VITALS: BP 156/82
--- NOTE | 2025-03-16 07:17 | CONS.URO ---
Consultation
-
Date/Time Consultation Performed: 03/16/2025 0711
Requesting Provider: ED
Performing Provider: Jg
Reason for Consultation: hematuria
Medical History
History of Present Illness
02/26/2025 In-patient consultation with Dr Haywood: 'The patient is a 69-year-old obese
male with AFib on Coumadin, who has been followed by Dr. Claros.
He presented to [facility] in 2022 with prostatitis and urinary
retention requiring a Kelsey catheter. He was eventually able to
urinate independently. He was last seen in September of this year. His
symptoms were minimal and his postvoid residual was under 100 mL.
He has not been maintained on any kind of prostate medication. '
03/03/[address] Haywood: 'The patient failed a voiding trial prior to discharge from the
hospital during his last admission. A catheter was replaced. He was
continued on doxycycline and Flomax. There was a sense from the
medical team that he needed to be bridged with Lovenox before
restarting Coumadin, and he received one dose prior to his
discharge. He returned to the hospital within several hours,
complaining of significant bleeding around his Kelsey catheter but
not in his urine. He was also weak and dizzy and found to be in
rapid AFib. His Kelsey catheter was replaced. His urine has remained
clear.'
The patient was discharged on Coumadin.
He returned this AM reporting 3 days of gross hematuria.
Past Medical History
Past Medical History: Other (1. Obesity. 2. Rheumatoid arthritis. 3. AFib. 4. Bone cancer of the thumb. 5. Sleep apnea. 6. Hypertension. 7. BPH and retention. 8. Prostatitis.)
Past Surgical History: Other (Cholecystectomy, appendectomy, right thumb tumor resection. )
Social History
Tobacco: Former Smoker
Personal:
Allergies/Home Medications
Allergies
Allergy/AdvReac Type Severity Reaction Status Date / Time
theophylline Allergy Anaphylaxis Verified 03/15/25 21:54
Home Medications
�Medication �Instructions �Recorded �Confirmed �Type
losartan 100 mg tablet 100 mg PO DAILY Blood pressure #0 09/15/22 03/02/25 Rx
Held on 03/03/25. tabs
Instructions: Resume on
03/24/25. until cleared by
pcp/cardiology
diltiazem HCl 180 mg 180 mg PO DAILY #30 tabs 11/15/22 03/02/25 Rx
tablet,extended release 24 hr
(Cardizem LA)
folic acid 1 mg tablet 1 mg PO DAILY Supplement 05/17/24 03/02/25 History
hydroxychloroquine 200 mg tablet 200 mg PO BID Rheumatoid arthritis 05/17/24 03/02/25 History
methotrexate sodium 2.5 mg tablet 7.5 mg PO TH rheumatoid arthritis 05/17/24 03/02/25 History
tamsulosin 0.4 mg capsule 0.8 mg (2 x 0.4 mg) PO DAILY 30 03/02/25 03/02/25 Rx
days #60 caps
acetaminophen 325 mg tablet 650 mg (2 x 325 mg) PO Q4HPRN PRN 03/03/25 Rx
mild pain/MONTALVO/temp>100.5 #90 tabs
doxycycline hyclate 100 mg capsule 100 mg PO Q12 4 days #10 caps 03/04/25 03/02/25 Rx
warfarin 10 mg tablet (Jantoven) 10 mg PO HS 7 days #7 tabs 03/04/25 03/02/25 Rx
Physical Exam
Vital Signs
Vital Signs
Temp Pulse Resp BP Pulse Ox
98.7 F 63 13 125/68 97
03/15/25 21:48 03/16/25 06:45 03/16/25 06:45 03/16/25 06:00 03/16/25 06:45
Lab / Testing Results
Laboratory Results
03/15/25 21:59
03/15/25 21:59
Physical Exam
adult male on ED gurney
Genito-urinary: Kelsey Catheter (yellow outflow)
Assessment / Plan
-
Intermittent gross hematuria potentiated by anticoagulation.
Currently urine is visibly bloodless.
Rec:
fit for discharge urologically
surgery could not improve on his current status urologically
holding Coumadin for 5-7 days is advised in light of patient's recent hx
will f/u with Dr Claros as an outpatient
Data Reviewed
-
Lab Data: Labs Reviewed
Old Records: Reviewed
--- NOTE | 2025-03-16 08:15 | EDRN ---
Reviewed discharge instructions with patient. Reviewed Kelsey catheter care and how to change the Kelsey bags. Patient verbalized understanding.
[2025-03-16 08:17] VITALS: BP 133/76
== END 2025-03-16 08:24 | disposition home or self-care (01) ==
LOC: EMR 21:46
PROVIDERS: Emergency Medicine; Physician Assistant; CONSULT PHYSICIAN Specialist; EMERGENCY PHYSICIAN Student in an Organized Health Care Education/Training Program; FAMILY PHYSICIAN Family Medicine
DX: R31.0 Gross hematuria (principal); I48.91 Unspecified atrial fibrillation; I10 Essential (primary) hypertension; E78.5 Hyperlipidemia, unspecified; G47.33 Obstructive sleep apnea (adult) (pediatric); N40.1 Benign prostatic hyperplasia with lower urinary tract symptoms; R33.8 Other retention of urine; E66.9 Obesity, unspecified; Z68.41 Body mass index [BMI] 40.0-44.9, adult; M06.9 Rheumatoid arthritis, unspecified; Z79.01 Long term (current) use of anticoagulants; Z87.891 Personal history of nicotine dependence; Z85.830 Personal history of malignant neoplasm of bone
CPT/HCPCS: 99283; 51702; 80053; 81003; 85025; 85610